=== PATIENT | female | born 1925 | race African-American/Black ===

== ENCOUNTER 2017-02-14 12:39 | Inpatient (IN) ==
[2017-02-14] MEDS ORDERED: LABETALOL 100 MG/20 ML VIAL IV STA (12:52)
[2017-02-14] MEDS ORDERED: LABETALOL 20 MG/4 ML SYRINGE IV ONE (12:56)
[2017-02-14 13:28] LABS: Basophils # 0.1 10*3/uL (0.0-0.2); Basophils % 0.5 % (0.0-0.8); Eosinophils # 0.1 10*3/uL (0.0-0.87); Eosinophils % 1.3 % (0.00-10.9); Hematocrit 37.4 VOL% (35.7-47.0); Hemoglobin 12.1 GM/DL (12.0-16.0); Immature Granulocytes % 0.5 %; Immature Granulocytes Absolute 0.05 #; Lymphocytes % 20.7 % (21.3-54.2); Mean Corpuscular HGB Conc 32.4 GM/DL (32-36); Mean Corpuscular Hemoglobin 23 PG (27-34); Mean Corpuscular Volume 71.2 FL (87-102); Mean Platelet Volume 10.1 FL (9.6-12.0); Monocytes # 0.7 10*3/uL (0.11-0.8); Monocytes % 7.3 % (1.7-12.7); Neutrophils # 6.9 10*3/uL (1.4-7.4); Neutrophils % 69.7 % (38.7-73.9); Platelet Count 401 T/CUMM (130-400); Red Blood Count 5.25 MC/CUMM (3.8-5.5); White Blood Count 9.9 T/CUMM (4-12)
--- NOTE | 2017-02-14 13:29 | EKG Report ---
Stationary ECG Study [facility] ER Test Date: 02/14/2017 1:28:44 PM Pat Name: ANA TAY Department: Room: Gender: F It Auditor: : [id number] Requested by: Ger Cowan Order Number: [id number] Reading MD: EDWARD DUNAWAY Intervals [place] Rate: 86 P: 999 GA: 0 QRS: -22 QRSD: 107 T: 7 QT: 400 QTc: 443 Interpretive Statements ATRIAL FIBRILLATION LEFT AXIS DEVIATION MINIMAL VOLTAGE CRITERIA FOR LVH, CONSIDER NORMAL VARIANT Electronically Signed On 02-14-17 20:45:23 CDT by EDWARD DUNAWAY [email or web address]
[2017-02-14 13:37] LABS: INR 1.1; Partial Thromboplastin Time 27.7 SECS (0-40)
--- NOTE | 2017-02-14 13:42 | Emergency Department Note ---
Santos Brown Brittany, am scribing for, and in the presence of, Jose Almonte MD 12:55. Gage Brown Doug C, MD, personally performed the services described in this documentation, ascribed by Gisela Graham in my presence, and it is both accurate and complete [id number] . Arrival - Arrival Chief Complaint: Weakness Stated Complaint: weakness Mode of Arrival: Stretcher Limitations: No Limitations Source: Patient, Family, RN Notes Reviewed Time Seen by Provider: 02/14/17 12:51 - History of Present Illness HPI Narrative: Patient 89-year-old black female states she got up this morning to go the restroom and fell. Patient was taken emergency room [place] where she was witnessed to deteriorate around 11:00 this morning. Patient is able to speak and her speech is intelligible but she does have episodes of echolalia. She denies any headaches. She is unable to tell me the day of the week. She denies any previous history of stroke but does have hypertension. There is no history of any hemorrhage. She does not think she injured her head and her fall. She had a CT brain [place] which showed no acute hemorrhage. Onset (ago): hour(s) Consistency: constant Allergies/Adverse Reactions: Allergies Allergy/AdvReac Type Severity Reaction Status Date / Time TEE Inhibitors Allergy ANAPHYLAXIS Verified 02/14/17 12:55 benazepril Allergy ANAPHYLAXIS Verified 02/14/17 12:55 Home Medications: Home Medications Medication Instructions Recorded Confirmed Type Aspirin [Ecotrin] 12.5 PO DAILY 01/24/17 History HYDROcodone/ACETAMIN 5-325 [[place] 1 tablet PO Q6H PRN #10 tablet 01/24/17 Rx 5-325] Review of System - Review of System 12 point system: reviewed and no additional remarkable complaints except as stated - Review of System Constitutional: Absent: chills, fever Eyes: Absent: vision change Head/Ears/Nose/Throat: Absent: nasal drainage, sore throat Respiratory: Absent: respiratory distress Cardiovascular: Absent: chest pain Gastrointestinal: Absent: abdominal pain, nausea, vomiting, diarrhea, constipation, melena, hematochezia Genitourinary female: Absent: dysuria, frequency, urgency Musculoskeletal: Present: arm pain (R shoulder). Absent: back pain, leg pain, neck pain Skin: Absent: rash Neurological: Present: weakness (L sided). Absent: headache Psychiatric: Absent: anxiety, depression Hematological/Lymphatic: Absent: easy bleeding, easy bruising Medical,Surgical,& Family Hx - Medical History Cardio: History of: Hypertension, Cardiovascular Problems Rheumatology: History of;: Gout - Surgical History Surgical History: noncontributory - Family History Family History: noncontributory - Social History Smoking Status: Never smoker Exam Vital Signs: Vital Signs Temperature 97.4 F L 02/14/17 12:39 Pulse Rate 94 H 02/14/17 12:39 Respiratory Rate 16 02/14/17 12:39 Blood Pressure 223/122 02/14/17 12:39 O2 Sat by Pulse Oximetry 100 02/14/17 12:39 - General General appearance: alert, in no apparent distress, other (Echolalia) - Head Head exam: Present: atraumatic, normocephalic - Eye Eye exam: Present: PERRL, EOMI - ENT ENT exam: Present: normal exam, normal oropharynx - Neck Neck exam: Present: normal inspection, full ROM, trachea midline - Chest Chest inspection: Present: normal inspection, symmetric chest wall rise - Respiratory Respiratory exam: Present: normal lung sounds bilaterally. Absent: respiratory distress - Cardiovascular Cardiovascular exam: Present: regular rate, normal rhythm, normal heart sounds. Absent: murmur, rubs, gallop - Abdominal Exam Abdominal exam: Present: soft, normal bowel sounds. Absent: tenderness - Extremities Exam Extremities exam: Absent: normal inspection (Pt ignores the left side of her body. Patient has absent veterans' coordinator on the left and cannot lift left leg from stricture) - Back Exam Back exam: Present: normal inspection - Neurological Exam Neurological exam: Present: alert, oriented X3, motor sensory deficit (Pt ignores the left side of her body. Patient has absent veterans' coordinator on the left and cannot lift left leg from stricture). Absent: CN II-XII intact (Patient has left central facial weakness) - Psychiatric Psychiatric exam: Present: normal affect, normal mood - Skin Skin exam: Present: warm, dry Course Course Narrative: Patient's clinical presentation, radiographic and electrocardiographic findings were discussed with [facility] alatorre covering the hospitalist service. She will see the patient here in the emergency room and determine final disposition. Regretfully I do not think she is a thrombolytic candidate. She appears to be in atrial fibrillation. Results - Labs Lab Results: I have reviewed the patients labs (Reviewed laboratory studies from [facility]) - EKG EKG results: interpreted by [facility]NOR EKG shows: atrial fibrillation (Heart rate 86 bpm) - Diagnostic Findings Procedure: CT: report reviewed by me (No acute hemorrhage seen.) Disposition Clinical Impression: Acute CVA (cerebrovascular accident) Case discussed with: patient, patient's family Disposition: Still a Patient Condition: Guarded Time of Disposition: 13:41
[2017-02-14 14:06] LABS: Albumin 3.3 G/DL (3.4-5.0); Bilirubin,Total 0.5 MG/DL (0.2-1.0); Calcium 9.8 MG/DL (8.5-10.1); Osmolality,Calculated 288.3 MOS/KG (273-304); Potassium 3.4 MMOL/L (3.5-5.1); Total Protein 7.6 G/DL (6.4-8.3)
[2017-02-14] MEDS ORDERED: LABETALOL 20 MG/4 ML SYRINGE IV PRN (14:19)
--- NOTE | 2017-02-14 14:27 | Hospitalist History & Physical ---
Assessment and Plan (1) Acute CVA (cerebrovascular accident) Status: Acute Assessment and plan: Patient's last known well time was around 930 this morning. The patient is well outside of the time frame for TPA administration. The patient will be admitted to the critical care unit for close observation. We will consult neurology. We will allow a degree of permissive hypertension. We will obtain an echocardiogram, carotid Doppler studies, and schedule MRI in a.m. We will recheck labs in a.m. Current Visit: Yes (2) Acute kidney injury Status: Acute Assessment and plan: BUN and creatinine noted at 23/1.20. We will monitor renal function at this time. We will recheck labs in a.m. Current Visit: Yes (3) Hypokalemia Status: Acute Current Visit: Yes (4) Hypokalemia Status: Acute Assessment and plan: Potassium noted at 3.4. We will start the potassium replacement protocol, correct deficit, and recheck labs in a.m. Current Visit: Yes History of Present Illness Chief complaint: Weakness History of present illness: This is a very pleasant 89-year-old female that presented to the ED at [facility] this afternoon as a transfer from [facility] in [place], [place] for further evaluation of weakness. The patient has a medical history significant for hypertension, gouty arthritis, TEE inhibitor aggravated angioedema, and arthritis. No significant surgical history was reported at the time of presentation. The family who was present at bedside served as historians. They report that the patient got out of bed this morning , attempted to go to the restroom, and sustained a fall. The patient who normally lives alone, was able to crawl to the phone and contact her family. Her family came to her home and transported her to the emergency room at [facility] for further evaluation. The patient was assessed at the time of presentation at [facility]. The patient was assessed at the time of presentation. The patient was noted to be grossly hypertensive with a blood pressure reported at 206/101. The stroke protocol was initiated at that time. Labs were obtained which were significant for white blood cell count 10.91, hemoglobin 11.4, hematocrit 35.0, potassium 3.2, BUN 24, creatinine 1.07, and glucose 118. CT head without contrast reported no acute intracranial pathology , generalized atrophy and changes consistent with microvascular disease, and chronic right caudate nucleus lacunar infarct. The patient was subsequently transferred to [facility] for continuation of care. The patient was assessed at the time of ED presentation at [facility]. The patient was noted to be grossly hypertensive with a blood pressure reported at 223/122. The stroke protocol was initiated at the time of presentation. The patient's neurological status was noted to be less than favorable. The patient's speech was not easily understood and the patient was noted to be neglecting the left side of her body. Labs were obtained which were significant for platelet count 4 1, potassium 3.4, BUN 23, creatinine 1.20 , glucose 165, and albumin 3.3. CT of the head was repeated which was significant for scattered hypoattenuation throughout the deep white matter in sultana likely representing microangiopathic small vessel ischemic changes. Chest x-ray was significant for reticulonodular interstitial opacities within the lung bases which could be chronic in nature. Early acute inflammatory process not excluded. After brief discussion with both Dr. Almonte and Dr. Bee, the patient will be admitted to the hospitalist service for continuation of care. Due to the severity of the patient's presenting symptoms, the patient will be placed in the critical care setting for close observation. A neurology consultation has been requested to evaluate and assist during the clinical encounter. Home medications have been reviewed and reconciled. CODE STATUS discussed; patient is a FULL CODE. Home Medications Medication Instructions Recorded Confirmed Type Aspirin [Ecotrin] 12.5 PO DAILY 01/24/17 History HYDROcodone/ACETAMIN 5-325 [[place] 1 tablet PO Q6H PRN #10 tablet 01/24/17 Rx 5-325] Allergies Allergy/AdvReac Type Severity Reaction Status Date / Time TEE Inhibitors Allergy ANAPHYLAXIS Verified 02/14/17 12:55 benazepril Allergy ANAPHYLAXIS Verified 02/14/17 12:55 Medical,Surgical,& Family Hx - Medical History Cardio: History of: Hypertension, Cardiovascular Problems Rheumatology: History of;: Gout - Family History Family History: Reports;: Family Diabetes, Family Heart Disease, Family Stroke - Social History Smoking Status: Never smoker Frequency of Alcohol Use: None Type of Drug Use: None Marital Status: Single Lives With:: Alone 12 point system: reviewed and no additional remarkable complaints except as stated Exam - Constitutional Vitals: Period Temp Pulse Resp BP Sys/Delgado Pulse Ox Last 24 Hr 97.4 F-97.4 F 94-94 16-16 223-223/122-122 100 General appearance: normal weight, mild distress - Head Head exam: Present: normal inspection, normocephalic - Eye Eye exam: Present: EOMI, other. Absent: conjunctival injection Pupils: Present: ASCENCION, normal accommodation - ENT ENT exam: Present: normal exam, normal external ear exam, normal oropharynx - Neck Neck exam: Present: normal inspection. Absent: lymphadenopathy, meningismus, tenderness, thyromegaly - Respiratory Respiratory exam: Present: clear to auscultation bilaterally. Absent: rales, rhonchi, stridor, wheezes - Cardiovascular Cardiovascular exam: Present: irregular rhythm (Atrial fibrillation) - GI/Abdominal GI/Abdominal exam: Present: normal bowel sounds, soft - Extremities Exam Extremities exam: Present: normal inspection, normal capillary refill, full ROM. Absent: edema - Expanded Left Upper Extremity General: Present: normal inspection Shoulder exam: Present: normal inspection, full ROM Upper Arm exam: Present: normal inspection Elbow exam: Present: normal inspection Hand wrist exam: Present: normal inspection Neurosensory exam: Absent: 2-point discrimination (Left upper extremity flaccid ; 0/0 strength) Vascular: Present: normal capillary refill - Expanded Left Lower Hip exam: Present: normal inspection Upper Leg exam: Present: normal inspection Knee exam: Present: normal inspection Lower leg exam: Present: normal inspection Ankle exam: Present: normal inspection Foot/Toe exam: Present: normal inspection Neuro vascular tendon exam: Present: decreased fine/light touch, motor deficit Gait: Present: not tested/not observed (Left lower extremity weakness; 2/5 strength) - Back Exam Back exam: Present: normal inspection - Neurological Exam Neurological exam: Present: alert, oriented X3, motor sensory deficit (Left- sided sensorimotor deficit), other (Left-sided facial drooping; slurred speech; left-side neglect). Absent: CN II-XII intact - Psychiatric Psychiatric exam: Present: normal affect - Skin Skin exam: Present: normal color, warm, dry Results - Labs CBC & BMP: 02/14/17 13:18 02/14/17 13:18 Lab Results: I have reviewed the past 24 hour labs Quality Measures - Stroke Onset of Symptoms Date: 02/14/17 Onset of Symptoms Time: 11:00 Presenting Symptoms: Left hemiparesis Contraindication Not Initiating IV-tPA: Other medical (Outside of the suggested timeframe for administration)
--- NOTE | 2017-02-14 14:28 | CT Report ---
Exam: CT head without intravenous contrast Clinical History: 89 years Female hemiparesis Technique: Axial computed tomography images of the head/brain without intravenous contrast Comparison: Same date at 0923 hours Findings: Brain: Patchy hypoattenuation within the deep white matter and sultana, unchanged. Angeles-white matter distinction maintained. No mass effect. No intra or extra-axial hemorrhage. Ventricles: Unremarkable. No ventriculomegaly. Bones/joints: Calvarium is intact Soft tissues: Unremarkable Sinuses: No active paranasal sinus process Mastoid air cells: Unremarkable visualized. Impression: 1. Scattered hypoattenuation throughout the deep white matter and sultana, likely representing microangiopathic small vessel ischemic changes. If clinically concerned for acute infarction, noncontrast MRI is suggested to further characterize PROCEDURE INTERPRETED AT [facility] DEPARTMENT OF RADIOLOGY Final Report Signed by: Martín Angeles
--- NOTE | 2017-02-14 14:28 | XRay Report ---
Portable chest Exam date: 02/14/2017 12:52 PM Indication: Shortness of breath, cough chest pain Comparison: January 24, 2017 at 1505 hours Findings: Cardiomediastinal contours are stable with underlying cardiomegaly and plaquing along the arch. Low lung volumes with basilar reticular nodular densities. Note made of advanced right glenohumeral arthrosis with. No acute osseous abnormalities. Visualized upper abdomen demonstrates no acute pathology. Impression: Reticular nodular interstitial opacities within the lung bases, may be chronic in nature. Early acute inflammatory process not excluded PROCEDURE INTERPRETED AT [facility] DEPARTMENT OF RADIOLOGY Final Report Signed by: Martín Angeles
[2017-02-14 14:53] LABS: Risk Ratio 4.92; VLDL CHOLESTEROL 22.6 MG/DL
[2017-02-14 14:54] LABS: Troponin I Only 0.054 NG/ML (0.00-0.045)
[2017-02-14] MEDS: SODIUM CHLORIDE 0.9% 1,000 ML IV SCH (16:02)
[2017-02-14] MEDS: niCARdipine INJ 25 MG in SODIUM CHLORIDE 0.9% 240 ML IV SCH ×2 (16:40→22:05)
--- NOTE | 2017-02-14 17:26 | Ultrasound Report ---
Carotid Doppler February 14, 2017 Indication: Focal neurologic deficit, weakness Comparison images are not available Technique: Angeles scale sonogram of the bilateral carotid arteries was performed utilizing color Doppler in routine fashion. Static images were submitted for interpretation with image capture and archive. Findings: Complete occlusion at the origin the right internal carotid artery. Extensive plaquing along the bifurcation origin of the left internal carotid artery with no associated increased flow velocities. Impression: 1. Complete occlusion at the origin the right internal carotid artery 2. Moderate plaquing at the left bifurcation origin of the internal carotid artery. No high-grade stenosis by flow velocity Today studies were performed utilizing indirect NASCET criteria The ultrasound images were stored and captured PROCEDURE INTERPRETED AT [facility] DEPARTMENT OF RADIOLOGY Final Report Signed by: Martín Angeles
--- NOTE | 2017-02-14 21:30 | ECHO Report ---
Jyoti Murray Exam Date: 02/14/2017 14:39 Referring Physician: Technologist: Dhara Reyes Age: 89 Ht (in): 64 Wt (lb): 150 Gender: F Exam Location: [facility] Echo Indications: acute CVA, acute kidney injury, hypokalemia BP: 223 / 122 HR: 94 Rhythm: Atrial fibrillation Technical Quality: IMPRESSIONS 2-3+ left atrial enlargement 2+ concentric LVH Normal LV systolic function with ejection fraction estimated be 65% without segmental wall motion abnormality 1+ mitral regurgitation 1-2+ tricuspid regurgitation with RVSP 21 mmHg plus RAP Irregular rhythm noted suggestive of atrial fibrillation MEASUREMENTS (Male / Female) Normal Values 2D ECHO LV Diastolic Diameter PLAX 3.0 cm 4.2 - 5.9 / 3.9 - 5.3 cm LV Systolic Diameter PLAX 1.4 cm LV Fractional Shortening PLAX 52.8 % IVS Diastolic Thickness 1.3 cm 0.6 - 1.0 / 0.6 - 0.9 cm LVPW Diastolic Thickness 1.2 cm 0.6 - 1.0 / 0.6 - 0.9 cm RV Internal Dim ED PLAX 2.2 cm Aortic Root Diameter 2.4 cm LA Systolic Diameter LX 4.2 cm 3.0 - 4.0 / 2.7 - 3.8 cm DOPPLER TR Peak Velocity 229.0 cm/s TR Peak Gradient 21.0 mmHg FINDINGS Left Ventricle Normal left ventricular cavity size. Mild concentric left ventricular hypertrophy with moderate diastolic dysfunction. Left ventricular ejection fraction is estimated a Right Ventricle Normal right ventricular size. Right Atrium The right atrium is mildly enlarged. Left Atrium The left atrium is mild - moderately enlarged. Mitral Valve Mildly thickened mitral valve with mild mitral regurgitation. Aortic Valve Mild aortic valve sclerosis without stenosis or regurgitation. Tricuspid Valve Morphologically normal tricuspid valve. Trace to mild tricuspid valve regurgitation. Tricuspid regurgitation velocities suggest a PAP of 21.0 mmHg + RAP. Pulmonic Valve Pulmonic valve not well visualized. Pericardium No pericardial effusion. Aorta Normal size aortic root and proximal ascending aorta. Eleuterio Cade (Electronically Signed) Final Date: 14 February 2017 21:30
[2017-02-15] MEDS: niCARdipine INJ 25 MG in SODIUM CHLORIDE 0.9% 240 ML IV SCH ×3 (02:56→21:30)
[2017-02-15] MEDS: SODIUM CHLORIDE 0.9% 1,000 ML IV SCH (05:40)
[2017-02-15 07:10] LABS: Basophils # 0.1 10*3/uL (0.0-0.2); Basophils % 0.3 % (0.0-0.8); Eosinophils % 0.1 % (0.00-10.9); Hematocrit 35.5 VOL% (35.7-47.0); Immature Granulocytes % 0.3 %; Immature Granulocytes Absolute 0.05 #; Lymphocytes # 2.9 10*3/uL (1.4-4.0); Lymphocytes % 17.9 % (21.3-54.2); Mean Corpuscular HGB Conc 33.8 GM/DL (32-36); Mean Corpuscular Hemoglobin 24 PG (27-34); Mean Corpuscular Volume 70.3 FL (87-102); Monocytes # 1.5 10*3/uL (0.11-0.8); Monocytes % 9.1 % (1.7-12.7); Neutrophils # 11.7 10*3/uL (1.4-7.4); Neutrophils % 72.3 % (38.7-73.9); Platelet Count 424 T/CUMM (130-400); Red Blood Count 5.05 MC/CUMM (3.8-5.5); Red Cell Distribution Width 14.9 % (9.3-17.3); White Blood Count 16.2 T/CUMM (4-12)
--- NOTE | 2017-02-15 08:24 | Hospitalist Progress Note ---
Assessment and Plan (1) Atrial fibrillation Status: Acute Assessment and plan: Unclear whether this is chronic or new onset. Consider full anticoagulation after MRI. The patient was on aspirin prior to this admission Current Visit: Yes Qualifiers: Atrial fibrillation type: unspecified Qualified Code(s): I48.91 - Unspecified atrial fibrillation (2) Uncontrolled hypertension Status: Acute Assessment and plan: Currently on a Cardene drip. Resume Norvasc and metoprolol. Consider adding other agents. Currently allowing for permissive hypertension within the 24 hours of new stroke. Current Visit: Yes (3) Acute CVA (cerebrovascular accident) Status: Acute Assessment and plan: Patient with left sided symptoms on deficit. Carotid shows occlusion of the right ICA. Neurology consulted in case discussed this morning. MRI today. Further recommendations will depend on her response to therapy. She is currently receiving aspirin 3 mg rectally. I have added Lipitor for her low HDL. Will consider full anticoagulation due to atrial fibrillation Current Visit: Yes (4) Hyperglycemia Status: Acute Assessment and plan: Mildly elevated hemoglobin A1c of 6.7 and a glucose of 167 on admission. Will order Accu-Cheks and continue to monitor. Current Visit: Yes Hospitalist: Subjective Interval history: Patient seen and examined. No acute events overnight. Case discussed with nursing staff. Labs reviewed. The patient was admitted yesterday afternoon as a transfer from [place]. She appears to have suffered a new stroke. She has left sided flaccid paralysis and right gaze preference. Her speech has improved. She was very hypertensive on arrival and was started on a Cardene drip. Carotid ultrasound shows that she has a complete occlusion of the right internal carotid artery. Echocardiogram shows atrial fibrillation with a normal ejection fraction. It is unclear whether the patient has a history of atrial fibrillation or if this is new. She was previously on aspirin at home as well as Norvasc and metoprolol. Her HDL is low and I started her on Lipitor. She is awaiting swallow evaluation and is currently n.p.o. PT and OT evaluations have been ordered and are pending. An MRI has also been ordered. Case was discussed with neurology on rounds this morning. Exam - Constitutional Vitals: Period Temp Pulse Resp BP Sys/Delgado Pulse Ox Last 24 Hr 97.3 F-98.1 F 77-126 13-26 107-223/64-124 98-100 Exam: Constitutional System: No distress. No tremulousness. Head: Normocephalic, atraumatic. Ears, Nose and Throat System: No pain or tenderness. No epistaxis or discharge Eyes System: Pupils equal, round, and reactive. Right gaze preference Neck: Supple, without adenopathy, No jugular venous distention. No thyromegaly, neck mass, or prior surgery apparent. Respiratory System: Chest clear to auscultation. Cardiovascular System: Heart with irregular rate and rhythm. No murmur. GI System: Abdomen soft, nontender. Normo active bowel sounds present. Musculoskeletal System: limbs with no pedal edema. Full distal pulses. Normal capillary refill. Neurological System: Left hemiparesis, right gaze preference. Patient is awake and alert. She is able to answer questions. Psychiatric System: Conversation is rational - Expanded Left Upper Extremity Neurosensory exam: Absent: 2-point discrimination (Left upper extremity flaccid ; 0/0 strength) Results - Labs CBC & BMP: 02/15/17 07:05 02/14/17 13:18 Lab Results: I have reviewed the past 24 hour labs - Diagnostic Findings Procedure: CT: report reviewed by me, MRI: pending, Ultrasound: report reviewed by me Quality Measures - Stroke Onset of Symptoms Date: 02/14/17 Onset of Symptoms Time: 11:00 Presenting Symptoms: Left hemiparesis
[2017-02-15] MEDS ORDERED: DEXTROSE 50% 25 GM/50 ML SYRINGE IV PRN (08:26)
[2017-02-15] MEDS ORDERED: GLUCAGON 1 MG VIAL IM PRN (08:26)
--- NOTE | 2017-02-15 08:48 | Neurology Consult Note ---
History of Present Illness History of present illness: 89 years old right-handed -[place] lady with past medical history significant for hypertension, gouty arthritis, osteoarthritis, new onset of atrial fibrillation admitted to hospital with acute onset of left-sided weakness. Patient was out of window For TPA. She was taken to [facility] at first and then later transferred to [facility] for further medical management. At the present time patient is talking but has dense left hemiplegia. She was living with her granddaughter. She is unable to swallow. Her blood pressure was significantly high at the time of admission and she is on Cardene drip. She is on aspirin and Lovenox as well. Never had a stroke before. CT of the head revealed right MCA distribution acute infarct. Carotid ultrasound revealed complete right ICA occlusion. EKG revealed new onset of atrial fibrillation Home Medications Medication Instructions Recorded Confirmed Type Aspirin [Ecotrin] 81 mg PO QAM 01/24/17 02/14/17 History HYDROcodone/ACETAMIN 5-325 [[place] 1 tablet PO Q6H PRN #10 tablet 01/24/17 Rx 5-325] Allopurinol [Allopurinol] 300 mg PO QAM 02/14/17 02/14/17 History Cyproheptadine Tab [Periactin Tab] 4 mg PO BEDTIME 02/14/17 02/14/17 History Metoprolol Succinate 50 mg PO QAM 02/14/17 02/14/17 History amLODIPine [Norvasc] 2.5 mg PO DAILY 02/14/17 02/14/17 History hydroCHLOROthiazide 12.5 mg PO QAM 02/14/17 02/14/17 History [Hydrochlorothiazide] Allergies Allergy/AdvReac Type Severity Reaction Status Date / Time TEE Inhibitors Allergy ANAPHYLAXIS Verified 02/14/17 12:55 benazepril Allergy ANAPHYLAXIS Verified 02/14/17 12:55 12 point system: reviewed and no additional remarkable complaints except as stated Medical,Surgical,& Family Hx - Medical History Cardio: History of: Cardiac Dysrhythmia, CAD, Hypertension, Cardiovascular Problems No history of: Aneurysm, Cerebrovascular Disease, Congenital Heart Disease, CHF, [place], Pacemaker, PVD, Valvular Heart Disease Psychological: No history of: Anxiety Disorders, ADHD, Behavior Problems, Bipolar Disorder, Depression, Previous Suicide Attempt, Psychiatric/Substance Abuse Tx, Schizophrenia, Violent Behavior, Psychiatric Problems Neurology: No history of: Brain Aneurysm, Cerebral Hemorrhage, Cerebrovascular Accident , Cerebral Palsy, Dementia, Migraine, Multiple Sclerosis, Parkinson's Disease, Peripheral Neuropathy, Seizures, TIA, Vertigo, Neurologocal Cancer HEENT: No history of: Ear Problem, Eye Problem, Dental Problems, Glaucoma, Oral Cancer, HEENT Problems Endocrine: No history of: Adrenal Disease, Diabetes Mellitus (IDDM), Diabetes Mellitus ( NIDDM), Dyslipidemia, Thyroid Disorder, Endocrine Cancer, Endocrine Problems Rheumatology: History of;: Gout No history of;: Fibromyalgia, Myasthenia Gravis, Psoriasis, Rheumatoid Arthritis, Sjogrens, Systemic Lupus Erythematosus, Rheumatological Problems Respiratory: No history of: Asthma, Bronchitis, COPD, Intubation, Obstructive Sleep Apnea , Pulmonary Embolism, Pulmonary Hypertension, Pneumonia, Lung Cancer, Respiratory Problems Renal: No history of: Renal (Kidney) Cancer, Dialysis, Renal Failure, Renal Problems Genitourinary: No history of: Bladder Problem, Kidney Stones, Recurring Urinary Tract Infections, Genitourinary Cancer, Problems Gastrointestinal: No history of: Bowel Obstruction, Clostridium Difficile, Crohn's Disease, Diverticulitis/ Diverticulosis, Esophageal Varices, GERD, Gastrointestinal Bleed , Hemorrhoids, Hematochezia, Hepatitis, Liver Problems, Pancreatitis, Polyps, Ulcerative Colitis, Gastrointestinal Cancer, GI Problems Musculoskeletal: No history of: Amputation, Back/Neck Problems, Degenerative Disk Disease, Herniated Disk, Osteoporosis, Musculoskeletal Cancer, Musculoskeletal Problems Hematology: No history of: Anemia, Blood Transfusion Reaction, Bleeding Problems, Clotting Problems, Sickle Cell Disease, Hematologic Cancer, Blood Disorders Reproductive: No history of: Abnormal Pap Smear, Breast Cancer, Endometriosis, Ectopic , Ovarian Cysts, Complication, Sexually Transmitted Disorders , Reproductive Cancer, Reproductive Problems Other: No history of: Anesthesia Reactions, Anaphylaxis, Cancer, Eczema, HIV, Malignant Hyperthermia, MRSA, Vancomycin-Resistant Enterococci, Skin Problems, Miscellaneous Medical Problems - Surgical History Cardiac Surgeries: Patient Denies: Femoral-Popliteal Bypass Graft, Cardiac Catheterization, Cardiac Surgery, Carotid Endarterectomy, Internal Defibrillator, Vascular Access Devices Thoracic Surgeries: Patient denies;: Kidney (Renal Surgery), Lithotripsy, Nephrectomy, Organ Transplant, Lobectomy Neurologic Surgeries: Patient denies: Brain Aneurysm, Cerebral Hemorrhage, Neurologic Surgery HEENT Surgeries: Patient denies: Carotid Endarterectomy, Eye Surgery, Thyroid Surgery, Tonsilectomy & Adenoidectomy Abdominal Surgeries: Patient denies: Abdominal Surgery, Appendectomy, Cholecystectomy, Colonoscopy , Gastric Bypass Surgery, EGD, Hernia Repair, Splenectomy Reproductive Surgeries: Patient denies;: Breast Surgery, Section, Cystoscopy, Dilation and Curettage, Genitourinary Surgery, Gynecologic Surgery, Hysterectomy, Tubal Ligation Orthopedic Surgeries: Patient denies;: Implanted Devices, Orthopedic Surgery, Spinal Surgery, Total Hip Replacement, Total Knee Replacement - Family History Family History: Reports;: Family Diabetes, Family Heart Disease, Family Stroke Denies;: Family Anesthesia Reaction, Family Cancer, Family Hematology, Family Hypertension, Family Psychiatric Problems, Additional Family History - Social History Smoking Status: Never smoker Frequency of Alcohol Use: None Type of Drug Use: None Exam - Constitutional Vitals: Period Temp Pulse Resp BP Sys/Delgado Pulse Ox Last 24 Hr 97.3 F-98.1 F 77-126 13-26 107-223/64-124 98-100 Exam: GENERAL: Patient is in no acute distress. NECK: Neck is supple. There is no JVD. No carotid bruits present. No thyroid masses. CVS: First and second heart sounds are normal. There is no S3 present. Regular rate and rhythm. RESPIRATORY: Lungs are clear to auscultation without any rales or rhonchi. ABDOMEN: Soft and non-tender. Bowel sounds are present. There is no hepatosplenomegaly. EXT: There is no palpable edema. Peripheral pulses are present. Skin: No rashes Central Nervous system: General: Alert, awake Speech: Fluent Comprehension: Fair Facial expressions: Normal Cranial Nerves: Pupils are equally reactive to light. She has left homonymous hemianopia. Motor: Bulk and Tone is normal. Strength in the right 3/5 Strength in the left 0-1/5 Sensory: Unreliable but she has left-sided extinction and neglect. Reflexes: 1+ and symmetrical Cerebellar function: Cannot be tested Toes: Left toe is upgoing Gait: Not tested Results - Labs CBC & BMP: 02/15/17 07:05 02/14/17 13:18 Assessment and Plan (1) Acute CVA (cerebrovascular accident) Status: Acute Assessment and plan: Continue aspirin per rectal. Add Lovenox 40 mg subcu daily Probably will need stronger anticoagulant and after PEG tube placement if required Agree with PT OT and ST Discuss CODE STATUS and family would like to make her DNR Cancel MRI and do CT scan of the head without contrast in the morning Thank you for the consult Current Visit: Yes
[2017-02-15] MEDS: ENOXAPARIN 40 MG/0.4 ML SYRINGE SUBCUT SCH (08:58)
[2017-02-15] MEDS ORDERED: ASPIRIN 300 MG SUPP RECTAL SCH (09:00)
[2017-02-15] MEDS ORDERED: ASPIRIN EC 81 MG TABLET PO SCH (09:00)
[2017-02-15] MEDS: ALLOPURINOL 300 MG TABLET PO SCH (09:21)
[2017-02-15] MEDS: METOPROLOL SUCCINATE XL 50 MG TABLET PO SCH (09:21)
[2017-02-15] MEDS: amLODIPine 2.5 MG TABLET PO SCH (09:21)
--- NOTE | 2017-02-15 10:34 | EKG Report ---
Stationary ECG Study [facility] Test Date: 02/15/2017 10:33:03 AM Pat Name: ANA TAY Department: Room: 123 Gender: F Weed Thinner: MALLY : 1925 Requested by: Josephine Rodriguez Order Number: [id number] Reading MD: AVANI SIM Intervals [place] Rate: 85 P: 999 MT: 0 QRS: 22 QRSD: 91 T: 105 QT: 380 QTc: 422 Interpretive Statements ATRIAL FLUTTER/TACHYCARDIA LOW QRS VOLTAGE IN EXTREMITY LEADS ABNORMAL QRS-T ANGLE Electronically Signed On 02-19-17 06:29:55 CDT by AVANI SIM [email or web address]
--- NOTE | 2017-02-15 11:31 | Cardiology Consult Note ---
Assessment and Plan - Time spent with patient Time spent with patient: Greater than 30 minutes (1) Atrial fibrillation Status: Acute Assessment and plan: This certainly appears to be acute. She has had palpitations the past which may represent episodes of paroxysmal atrial fibrillation previously. At present her rates are stable. She will need anticoagulation long-term especially her stroke. I am concerned about placing on anticoagulation at this close to her immediate stroke event. Also will need to look at right control. Current Visit: Yes Qualifiers: Atrial fibrillation type: unspecified Qualified Code(s): I48.91 - Unspecified atrial fibrillation (2) Acute CVA (cerebrovascular accident) Status: Acute Assessment and plan: This is being followed by neurology now. Current Visit: Yes (3) Hypokalemia Status: Acute Assessment and plan: Followed by the primary service. Current Visit: Yes (4) Uncontrolled hypertension Status: Acute Assessment and plan: This is being treated by the primary service and is on IV therapy as well as oral therapy. 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 Ms. Murray is a 89 year old female who is been followed by Dr. Feliz Ordonez previously having had coronary artery disease as well as dyslipidemia and hypertension. She has a history of palpitations based on his records. His prior ECGs revealed sinus rhythm with first-degree AV block and delayed anterior R-wave progression. She was last seen by him in November of this year. Prior evaluation with echocardiogram May 2015 revealed ejection fraction 65+ % with aortic valve sclerosing and otherwise unremarkable any cardiac perfusion study at the same time with normal cardiac perfusion and ejection fraction greater than 70%. No wall motion normality's were noted. Patient is admitted yesterday from an outside facility particularly [facility] [facility] room because of deterioration after having what appeared to be a stroke. She had no prior history of stroke. Outside CT did not reveal acute hemorrhage. Neurology's note the patient had right MCA stroke. 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 Clinically she has left-sided weakness. She has her head turned to the right. Her speech is today intelligible and she seems to understand our conversation. She has family with her today at bedside. She has no prior history of strokes. She does have a history of hypertension as well as dyslipidemia and prior coronary disease but the specifics of this is unknown. She also has a history of palpitations. She has been followed by Dr. Feliz Cade. An echocardiogram seen by him yesterday and interpreted revealed ejection fraction of 65% with moderate left atrial enlargement concentric left ventricular hypertrophy and mild mitral regurgitation and mild to moderate tricuspid valve regurgitation. Normal right-sided pressures. At that time was noted that she was probably in atrial fibrillation. Her ECG outside reveals sinus rhythm with first-degree AV block which she has had previously on ECG. Here she has had atrial fibrillation with variable ventricular response. Blood pressures not been adequately controlled. She is on low-dose Lovenox as well as aspirin. She is receiving nicardipine for blood pressure management this time. There is some question whether not this patient is able to swallow adequately. She will need adjustment of her medications especially her anticoagulants and other medications based on ability to swallow. Certainly we will need to hold full anticoagulation to make sure she does not transition into hemorrhagic stroke. Would consider Eliquis in her situation. CC: Josephine Rodriguez MD - Home Medications and Allergies Home Medications: Home Medications Medication Instructions Recorded Confirmed Type Aspirin [Ecotrin] 81 mg PO QAM 01/24/17 02/14/17 History HYDROcodone/ACETAMIN 5-325 [[place] 1 tablet PO Q6H PRN #10 tablet 01/24/17 Rx 5-325] Allopurinol [Allopurinol] 300 mg PO QAM 02/14/17 02/14/17 History Cyproheptadine Tab [Periactin Tab] 4 mg PO BEDTIME 02/14/17 02/14/17 History Metoprolol Succinate 50 mg PO QAM 02/14/17 02/14/17 History amLODIPine [Norvasc] 2.5 mg PO DAILY 02/14/17 02/14/17 History hydroCHLOROthiazide 12.5 mg PO QAM 02/14/17 02/14/17 History [Hydrochlorothiazide] Allergies/Adverse Reactions: Allergies Allergy/AdvReac Type Severity Reaction Status Date / Time TEE Inhibitors Allergy ANAPHYLAXIS Verified 02/14/17 12:55 benazepril Allergy ANAPHYLAXIS Verified 02/14/17 12:55 Review of systems: This is obtained to some degree from the patient as well as from family and is related to symptoms and history prior to her present acute event. Constitutional: Denies anorexia, chills, fatigue, fever, frequent falls, night sweats, weight gain, weight loss Eyes: Denies visual changes or loss of vision Ears: Denies decreased hearing, vertigo Nose, mouth and throat: Denies dysphagia, epistaxis, headaches, neck pain, tongue swelling, Neck: Denies thyroid disease. No stiffness. Cardiovascular: as per HPI Respiratory: Denies cough, dyspnea, hemoptysis, dyspnea on exertion, wheezing. Gastrointestinal: Denies abdominal pain, constipation, dyspepsia, dysphagia, hematemesis, hematochezia, melena, nausea, vomiting Genitourinary: Denies dysuria, hematuria, nocturia Musculoskeletal: Denies arthralgias, joint swelling, muscle weakness, myalgias Neurological: denies abnormal gait, abnormal speech, confusion, convulsions, frequent falls, headaches, memory loss, syncope prior to present acute event. Psychiatric: Denies anxiety, confusion, depression prior to present event. Endocrine: Unknown Hematologic/Lymphatic: Denies easy bleeding, easy bruising Dermatologic: Denies Rash, itching, shingles Medical,Surgical,& Family Hx - Medical History Cardio: History of: Cardiac Dysrhythmia (She has had palpitations before but nothing documented specifically), CAD, Hypertension, Cardiovascular Problems No history of: Aneurysm, Cerebrovascular Disease, Congenital Heart Disease, CHF, [place], Pacemaker, PVD, Valvular Heart Disease Psychological: No history of: Anxiety Disorders, ADHD, Behavior Problems, Bipolar Disorder, Depression, Previous Suicide Attempt, Psychiatric/Substance Abuse Tx, Schizophrenia, Violent Behavior, Psychiatric Problems Neurology: No history of: Brain Aneurysm, Cerebral Hemorrhage, Cerebrovascular Accident , Cerebral Palsy, Dementia, Migraine, Multiple Sclerosis, Parkinson's Disease, Peripheral Neuropathy, Seizures, TIA, Vertigo, Neurologocal Cancer HEENT: No history of: Ear Problem, Eye Problem, Dental Problems, Glaucoma, Oral Cancer, HEENT Problems Endocrine: No history of: Adrenal Disease, Diabetes Mellitus (IDDM), Diabetes Mellitus ( NIDDM), Dyslipidemia, Thyroid Disorder, Endocrine Cancer, Endocrine Problems Rheumatology: History of;: Gout No history of;: Fibromyalgia, Myasthenia Gravis, Psoriasis, Rheumatoid Arthritis, Sjogrens, Systemic Lupus Erythematosus, Rheumatological Problems Respiratory: No history of: Asthma, Bronchitis, COPD, Intubation, Obstructive Sleep Apnea , Pulmonary Embolism, Pulmonary Hypertension, Pneumonia, Lung Cancer, Respiratory Problems Renal: No history of: Renal (Kidney) Cancer, Dialysis, Renal Failure, Renal Problems Genitourinary: No history of: Bladder Problem, Kidney Stones, Recurring Urinary Tract Infections, Genitourinary Cancer, Problems Gastrointestinal: No history of: Bowel Obstruction, Clostridium Difficile, Crohn's Disease, Diverticulitis/ Diverticulosis, Esophageal Varices, GERD, Gastrointestinal Bleed , Hemorrhoids, Hematochezia, Hepatitis, Liver Problems, Pancreatitis, Polyps, Ulcerative Colitis, Gastrointestinal Cancer, GI Problems Musculoskeletal: No history of: Amputation, Back/Neck Problems, Degenerative Disk Disease, Herniated Disk, Osteoporosis, Musculoskeletal Cancer, Musculoskeletal Problems Hematology: No history of: Anemia, Blood Transfusion Reaction, Bleeding Problems, Clotting Problems, Sickle Cell Disease, Hematologic Cancer, Blood Disorders Reproductive: No history of: Abnormal Pap Smear, Breast Cancer, Endometriosis, Ectopic , Ovarian Cysts, Complication, Sexually Transmitted Disorders , Reproductive Cancer, Reproductive Problems Other: No history of: Anesthesia Reactions, Anaphylaxis, Cancer, Eczema, HIV, Malignant Hyperthermia, MRSA, Vancomycin-Resistant Enterococci, Skin Problems, Miscellaneous Medical Problems - Surgical History Cardiac Surgeries: Patient Denies: Femoral-Popliteal Bypass Graft, Cardiac Catheterization, Cardiac Surgery, Carotid Endarterectomy, Internal Defibrillator, Vascular Access Devices Thoracic Surgeries: Patient denies;: Kidney (Renal Surgery), Lithotripsy, Nephrectomy, Organ Transplant, Lobectomy Neurologic Surgeries: Patient denies: Brain Aneurysm, Cerebral Hemorrhage, Neurologic Surgery HEENT Surgeries: Patient denies: Carotid Endarterectomy, Eye Surgery, Thyroid Surgery, Tonsilectomy & Adenoidectomy Abdominal Surgeries: Patient denies: Abdominal Surgery, Appendectomy, Cholecystectomy, Colonoscopy , Gastric Bypass Surgery, EGD, Hernia Repair, Splenectomy Reproductive Surgeries: Patient denies;: Breast Surgery, Section, Cystoscopy, Dilation and Curettage, Genitourinary Surgery, Gynecologic Surgery, Hysterectomy, Tubal Ligation Orthopedic Surgeries: Patient denies;: Implanted Devices, Orthopedic Surgery, Spinal Surgery, Total Hip Replacement, Total Knee Replacement - Family History Family History: Reports;: Family Diabetes, Family Heart Disease, Family Stroke Denies;: Family Anesthesia Reaction, Family Cancer, Family Hematology, Family Hypertension, Family Psychiatric Problems, Additional Family History - Social History Smoking Status: Never smoker Frequency of Alcohol Use: None Type of Drug Use: None Physical Examination Vital Signs Temp Pulse Resp BP Pulse Ox 97.4 F L 94 H 16 223/122 100 02/14/17 12:39 02/14/17 12:39 02/14/17 12:39 02/14/17 12:39 02/14/17 12:39 Exam: General appearance: normal weight, no acute distress. She is lying with her head turned to the right. Head exam: atraumatic Eye exam: No acute trauma.. Ear exam: Anatomically normal. Normal auditory acuity to conversation. Oral exam: No significant oral lesions. Neck exam: normal inspection no JVD. No carotid bruit. Trachea is in midline. She is just persistently have her head turned to the right. Respiratory exam: clear to auscultation bilaterally and anteriorly with good air movement. No rales, rhonchi or wheezes. Cardiovascular exam: regular rate and rhythm, no murmur or gallop or rub. No precordial lift. No bruits over the major arteries. Chest wall/torso: Anatomically normal. No tenderness, deformity Peripheral Pulses: 2+ throughout. GI/Abdominal exam: normal bowel sounds, soft and nontender, no abdominal bruits or pulsatile masses. Musculoskeletal/Extremities exam: normal inspection without edema or cyanosis. No deformities or trauma. Neurological exam: Awake and responsive. She has no voluntary motion of the left arm on command and weak motion of the left leg and foot. Fairly good strength on the right leg and arm and hand. Psychiatric exam: Difficult at this time to really evaluate. Skin exam: normal color, warm. No rashes or other skin lesions. Result/EKG - Labs CBC & BMP: 02/15/17 07:05 02/14/17 13:18 Lab Results: I have reviewed the past 24 hour labs Labs: Laboratory Results - last 24 hr 02/14/17 02/14/17 02/14/17 13:18 13:18 13:18 WBC 9.9 RBC 5.25 Hgb 12.1 Hct 37.4 MCV 71.2 L MCH 23 L MCHC 32.4 RDW 15.0 Plt Count 401 H MPV 10.1 Neut % (Auto) 69.7 Lymph % (Auto) 20.7 L [place] % (Auto) 7.3 Eos % (Auto) 1.3 Baso % (Auto) 0.5 Neut # (Auto) 6.9 Lymph # (Auto) 2.0 [place] # (Auto) 0.7 Eos # (Auto) 0.1 Baso # (Auto) 0.1 Immature Gran % 0.5 Nucleated RBC % 0.0 Immature Gran # 0.05 Nucleated RBCs # 0.00 Immature Plt Fraction 0.0 INR 1.1 PT Patient/Control Mix 12.0 Circ Anticoag PTT 27.7 Sodium 141 Potassium 3.4 L Chloride 103 Carbon Dioxide 31 Anion Gap 10.4 BUN 23 H Creatinine 1.20 H GFR Calculation 46 BUN/Creatinine Ratio 19.00 Glucose 165 H Hemoglobin A1c Calculated Osmolality 288.3 Calcium 9.8 Total Bilirubin 0.50 AST 15 ALT 13 Alkaline Phosphatase 74 Troponin I Total Protein 7.6 Albumin 3.3 L Globulin 4.3 H Albumin/Globulin Ratio 0.7 L Triglycerides Cholesterol LDL Cholesterol VLDL Cholesterol HDL Cholesterol Heart Disease Risk Ratio 02/14/17 02/14/17 02/14/17 13:18 13:18 17:41 WBC RBC Hgb Hct MCV MCH MCHC RDW Plt Count MPV Neut % (Auto) Lymph % (Auto) [place] % (Auto) Eos % (Auto) Baso % (Auto) Neut # (Auto) Lymph # (Auto) [place] # (Auto) Eos # (Auto) Baso # (Auto) Immature Gran % Nucleated RBC % Immature Gran # Nucleated RBCs # Immature Plt Fraction INR PT Patient/Control Mix Circ Anticoag PTT Sodium Potassium Chloride Carbon Dioxide Anion Gap BUN Creatinine GFR Calculation BUN/Creatinine Ratio Glucose Hemoglobin A1c 6.7 H Calculated Osmolality Calcium Total Bilirubin AST ALT Alkaline Phosphatase Troponin I 0.054 H 0.077 H D Total Protein Albumin Globulin Albumin/Globulin Ratio Triglycerides 113 Cholesterol 187 LDL Cholesterol 129.0 VLDL Cholesterol 22.6 HDL Cholesterol 38 L Heart Disease Risk Ratio 4.92 02/14/17 02/15/17 02/15/17 20:37 07:05 07:05 WBC 16.2 H D RBC 5.05 Hgb 12.0 Hct 35.5 L MCV 70.3 L MCH 24 L MCHC 33.8 RDW 14.9 Plt Count 424 H MPV 10.0 Neut % (Auto) 72.3 Lymph % (Auto) 17.9 L [place] % (Auto) 9.1 Eos % (Auto) 0.1 Baso % (Auto) 0.3 Neut # (Auto) 11.7 H Lymph # (Auto) 2.9 [place] # (Auto) 1.5 H Eos # (Auto) 0.0 Baso # (Auto) 0.1 Immature Gran % 0.3 Nucleated RBC % 0.0 Immature Gran # 0.05 Nucleated RBCs # 0.00 Immature Plt Fraction 0.0 INR PT Patient/Control Mix Circ Anticoag PTT 27.3 Sodium Potassium Chloride Carbon Dioxide Anion Gap BUN Creatinine GFR Calculation BUN/Creatinine Ratio Glucose Hemoglobin A1c Calculated Osmolality Calcium Total Bilirubin AST ALT Alkaline Phosphatase Troponin I 0.077 H Total Protein Albumin Globulin Albumin/Globulin Ratio Triglycerides Cholesterol LDL Cholesterol VLDL Cholesterol HDL Cholesterol Heart Disease Risk Ratio - Impressions Impressions: ECG with atrial fibrillation with managed ventricular response. There is no acute changes. Quality Measures - Stroke Onset of Symptoms Date: 02/14/17 Onset of Symptoms Time: 11:00 Presenting Symptoms: Left hemiparesis
[2017-02-15] MEDS: INSULIN LISPRO 100 UNIT/ML SUBCUT SCH ×3 (12:20→23:46)
[2017-02-15] MEDS ORDERED: METOPROLOL TARTRATE 5 MG/5 ML VIAL IV ONE (13:26)
[2017-02-15] MEDS: METOPROLOL TARTRATE 5 MG/5 ML VIAL IV SCH ×3 (13:29→23:46)
--- NOTE | 2017-02-15 16:31 | Gastrointestinal Consult Note ---
Assessment and Plan (1) Dysphagia due to recent cerebral infarction Status: Acute Assessment and plan: Patient is experiencing some dysphagia at this time. She has difficulty sealing her mouth around a straw presented for speech pathology evaluation. She is not completely dysarthric, surprisingly it is difficult to gauge how soon her swallowing will resume, if at all. Unfortunately the patient is very adamant about avoiding a PEG tube and I have discussed this with the daughters who are wanting to wait until more family arrives tomorrow before discussing this further. For right now we will continue the aspirin and Lovenox regimen previously written. I have discussed the risks and benefits of the procedure with the daughter and granddaughter, Ashanti. Risk of the procedure include bleeding, infection, perforation, cardiac and pulmonary compromise as well as peritonitis from the tube itself. I can certainly provide this service at any point. There is no absolute baez to place this tomorrow, the patient may decide that she does not wish to have a feeding tube at all. Current Visit: Yes (2) Anemia Status: Acute Assessment and plan: Patient has mild anemia. She is not to my knowledge undergone either EGD or colonoscopy. We will perform EGD as a result of PEG tube placement ultimately, should she decide to undergo evaluation. I will be able to tell whether or not there appears to be a bleeding source in the upper GI tract at the time of this endoscopy. If the patient were having bright red blood per rectum we could also consider colonoscopy down the road, as clinically appropriate. For the present time will continue observation with occasional CBCs to follow the patient's hematocrit. Thus far this is drifted down to the 35.5% range from baseline of 42.5 back on 01/24/17. Current Visit: Yes History of Present Illness Chief complaint: Recent stroke of right m. cerebral artery, dysphagia, anticipated PEG need History of present illness: Ms. Murray is a 89 year old female who is a history of coronary artery disease, dyslipidemia and hypertension who had preserved left ventricular ejection fraction 65+% back in May 2015 who was admitted from an outside facility at [facility] with a stroke and left-sided hemiparesis. The patient has had a right-sided MCA distribution stroke and on ultrasound is demonstrated to have an occlusion of her right internal carotid at the origin. Patient's head is turned to the right and she has right eye deviation. Her speech is difficult to distinguish at times but is fairly intelligible to me although she is somewhat rambling. We discussed the placement of feeding tube with the patient' s daughter, Ms. Grant and granddaughter Ashanti as the patient is extremely obstinate that she does not want to have a feeding tube placed. They mention that more family is coming up from [place] and should be arriving tomorrow to further discuss it with the patient and she will be reassessed by speech pathology at that point as well. Given the amount of distribution involved with the stroke I have told him it is not likely that she will be able to swallow anytime soon but we could certainly discuss it after repeat evaluation tomorrow and with further family members present. The patient is trending towards becoming a DNR. We will continue the aspirin Lovenox for the present time. The patient has not had a previous stroke up to this point. Full anticoagulation is being held to make sure the patient does not transform into a hemorrhagic stroke but likely she will be started on Eliquis in the near future. In discussing with her family the patient does not typically have reflux issues, her appetite is quite good in fact she is asking for juice at the bedside now. She does not have diarrhea or constipation issues typically. The family does not know if she is ever had an EGD or colonoscopy. There are no records of either of these in our system. Home Medications Medication Instructions Recorded Confirmed Type Aspirin [Ecotrin] 81 mg PO QAM 01/24/17 02/14/17 History HYDROcodone/ACETAMIN 5-325 [Alpine 1 tablet PO Q6H PRN #10 tablet 01/24/17 Rx 5-325] Allopurinol [Allopurinol] 300 mg PO QAM 02/14/17 02/14/17 History Cyproheptadine Tab [Periactin Tab] 4 mg PO BEDTIME 02/14/17 02/14/17 History Metoprolol Succinate 50 mg PO QAM 02/14/17 02/14/17 History amLODIPine [Norvasc] 2.5 mg PO DAILY 02/14/17 02/14/17 History hydroCHLOROthiazide 12.5 mg PO QAM 02/14/17 02/14/17 History [Hydrochlorothiazide] Allergies Allergy/AdvReac Type Severity Reaction Status Date / Time TEE Inhibitors Allergy ANAPHYLAXIS Verified 02/14/17 12:55 benazepril Allergy ANAPHYLAXIS Verified 02/14/17 12:55 Medical,Surgical,& Family Hx - Medical History Cardio: History of: Cardiac Dysrhythmia (She has had palpitations before but nothing documented specifically), CAD, Hypertension, Cardiovascular Problems No history of: Aneurysm, Cerebrovascular Disease, Congenital Heart Disease, CHF, VT, Pacemaker, PVD, Valvular Heart Disease Psychological: No history of: Anxiety Disorders, ADHD, Behavior Problems, Bipolar Disorder, Depression, Previous Suicide Attempt, Psychiatric/Substance Abuse Tx, Schizophrenia, Violent Behavior, Psychiatric Problems Neurology: No history of: Brain Aneurysm, Cerebral Hemorrhage, Cerebrovascular Accident , Cerebral Palsy, Dementia, Migraine, Multiple Sclerosis, Parkinson's Disease, Peripheral Neuropathy, Seizures, TIA, Vertigo, Neurologocal Cancer HEENT: No history of: Ear Problem, Eye Problem, Dental Problems, Glaucoma, Oral Cancer, HEENT Problems Endocrine: No history of: Adrenal Disease, Diabetes Mellitus (IDDM), Diabetes Mellitus ( NIDDM), Dyslipidemia, Thyroid Disorder, Endocrine Cancer, Endocrine Problems Rheumatology: History of;: Gout No history of;: Fibromyalgia, Myasthenia Gravis, Psoriasis, Rheumatoid Arthritis, Sjogrens, Systemic Lupus Erythematosus, Rheumatological Problems Respiratory: No history of: Asthma, Bronchitis, COPD, Intubation, Obstructive Sleep Apnea , Pulmonary Embolism, Pulmonary Hypertension, Pneumonia, Lung Cancer, Respiratory Problems Renal: No history of: Renal (Kidney) Cancer, Dialysis, Renal Failure, Renal Problems Genitourinary: No history of: Bladder Problem, Kidney Stones, Recurring Urinary Tract Infections, Genitourinary Cancer, Problems Gastrointestinal: No history of: Bowel Obstruction, Clostridium Difficile, Crohn's Disease, Diverticulitis/ Diverticulosis, Esophageal Varices, GERD, Gastrointestinal Bleed , Hemorrhoids, Hematochezia, Hepatitis, Liver Problems, Pancreatitis, Polyps, Ulcerative Colitis, Gastrointestinal Cancer, GI Problems Musculoskeletal: No history of: Amputation, Back/Neck Problems, Degenerative Disk Disease, Herniated Disk, Osteoporosis, Musculoskeletal Cancer, Musculoskeletal Problems Hematology: No history of: Anemia, Blood Transfusion Reaction, Bleeding Problems, Clotting Problems, Sickle Cell Disease, Hematologic Cancer, Blood Disorders Reproductive: No history of: Abnormal Pap Smear, Breast Cancer, Endometriosis, Ectopic , Ovarian Cysts, Complication, Sexually Transmitted Disorders , Reproductive Cancer, Reproductive Problems Other: No history of: Anesthesia Reactions, Anaphylaxis, Cancer, Eczema, HIV, Malignant Hyperthermia, MRSA, Vancomycin-Resistant Enterococci, Skin Problems, Miscellaneous Medical Problems - Surgical History Cardiac Surgeries: Patient Denies: Femoral-Popliteal Bypass Graft, Cardiac Catheterization, Cardiac Surgery, Carotid Endarterectomy, Internal Defibrillator, Vascular Access Devices Thoracic Surgeries: Patient denies;: Kidney (Renal Surgery), Lithotripsy, Nephrectomy, Organ Transplant, Lobectomy Neurologic Surgeries: Patient denies: Brain Aneurysm, Cerebral Hemorrhage, Neurologic Surgery HEENT Surgeries: Patient denies: Carotid Endarterectomy, Eye Surgery, Thyroid Surgery, Tonsilectomy & Adenoidectomy Abdominal Surgeries: Patient denies: Abdominal Surgery, Appendectomy, Cholecystectomy, Colonoscopy , Gastric Bypass Surgery, EGD, Hernia Repair, Splenectomy Reproductive Surgeries: Patient denies;: Breast Surgery, Section, Cystoscopy, Dilation and Curettage, Genitourinary Surgery, Gynecologic Surgery, Hysterectomy, Tubal Ligation Orthopedic Surgeries: Patient denies;: Implanted Devices, Orthopedic Surgery, Spinal Surgery, Total Hip Replacement, Total Knee Replacement - Family History Family History: Reports;: Family Diabetes, Family Heart Disease, Family Stroke Denies;: Family Anesthesia Reaction, Family Cancer, Family Hematology, Family Hypertension, Family Psychiatric Problems, Additional Family History - Social History Smoking Status: Never smoker Frequency of Alcohol Use: None Type of Drug Use: None ROS unobtainable: due to dementia Exam - Constitutional Vitals: Period Temp Pulse Resp BP Sys/Delgado Pulse Ox Last 24 Hr 97.3 F-98.1 F 70-137 13-26 107-194/64-124 98-100 General appearance: mild distress - Head Head exam: Present: normocephalic - Eye Eye exam: Present: EOMI - ENT ENT exam: Present: normal exam - Respiratory Respiratory exam: Present: clear to auscultation bilaterally - Cardiovascular Cardiovascular exam: Present: regular rate and rhythm - GI/Abdominal GI/Abdominal exam: Present: normal bowel sounds, soft. Absent: distended, tenderness, rebound - Neurological Exam Neurological exam: Present: alert, altered (This patient has left-sided weakness she has paralysis of some of her facial muscles she is right eye gaze deviation and some confusion.) - Psychiatric Psychiatric exam: Present: normal mood, flat affect - Skin Skin exam: Present: warm Results - Labs CBC & BMP: 02/15/17 07:05 02/14/17 13:18 Quality Measures - Stroke Onset of Symptoms Date: 09/24/17 Onset of Symptoms Time: 11:00 Presenting Symptoms: Left hemiparesis
[2017-02-15 19:21] LABS: Apearance,Urine CLEAR (Clear); Bilirubin,Urine Negative (Negative); Blood, Urine Moderate mg/dL (Negative); Glucose,Urine (UA) Negative (Negative); Hyaline Casts,Urine 3 /LPF (0-3); Ketones,Urine Negative (Negative); Mucus,Urine Occasional /LPF (Occasional); Nitrite,Urine Negative (Negative); Protein,Urine 30 MG/DL; RBC,Urine 83 /HPF (0-4); Squamous Epithelial Cell,Urine Occasional /HPF (0-10); Urine Color Yellow (Yellow); Urine Specific Gravity 1.011 (1.001-1.035); Urine Urobilinogen < 2.0 EU/DL (0.2-1.0); WBC,Urine 19 /HPF (0-6)
[2017-02-15] MEDS: ATORVASTATIN 40 MG TABLET PO SCH (20:18)
[2017-02-16] MEDS: niCARdipine INJ 25 MG in SODIUM CHLORIDE 0.9% 240 ML IV SCH ×3 (03:45→20:15)
[2017-02-16 04:40] LABS: Basophils % 0.3 % (0.0-0.8); Eosinophils % 0.1 % (0.00-10.9); Hematocrit 35.6 VOL% (35.7-47.0); Immature Granulocytes % 0.4 %; Immature Granulocytes Absolute 0.06 #; Lymphocytes # 2.5 10*3/uL (1.4-4.0); Lymphocytes % 16.4 % (21.3-54.2); Mean Corpuscular HGB Conc 33.7 GM/DL (32-36); Mean Corpuscular Hemoglobin 23 PG (27-34); Mean Corpuscular Volume 69.5 FL (87-102); Mean Platelet Volume 10.1 FL (9.6-12.0); Monocytes # 1.4 10*3/uL (0.11-0.8); Neutrophils # 11.5 10*3/uL (1.4-7.4); Neutrophils % 73.8 % (38.7-73.9); Platelet Count 427 T/CUMM (130-400); Red Blood Count 5.12 MC/CUMM (3.8-5.5); Red Cell Distribution Width 14.6 % (9.3-17.3); White Blood Count 15.5 T/CUMM (4-12)
[2017-02-16 05:03] LABS: Calcium 8.9 MG/DL (8.5-10.1); Free T4 (Free Thyroxine) 1.16 NG/DL (0.76-1.46); Magnesium 1.5 MG/DL (1.8-2.4); Osmolality,Calculated 283.3 MOS/KG (273-304); Potassium 3.3 MMOL/L (3.5-5.1); Thyroid Stimulating Hormone 2.06 uIU/ml (0.358-3.74)
[2017-02-16] MEDS: INSULIN LISPRO 100 UNIT/ML SUBCUT SCH ×3 (05:29→17:22)
[2017-02-16] MEDS: METOPROLOL TARTRATE 5 MG/5 ML VIAL IV SCH ×2 (06:16→11:53)
--- NOTE | 2017-02-16 07:01 | CT Report ---
History: CVA Date: 02/16/2017 Study: CT head without contrast Comparison exam: February 14, [address] sections were obtained through the brain without contrast. There is now a large wedge-shaped area of decreased density compatible with ischemia in a right MCA distribution involving right frontal lobe, right temporal lobe, right insular cortex, and anteriormost aspect of the right parietal lobe. This measures at least 8 x 4 x 5 cm maximum dimensions. There is some mild effacement of the body of the right lateral ventricle. There is no midline shift or parenchymal hemorrhage. There is no new mass. There is no extra-axial hematoma. There is no acute abnormality of the calvarium. There is moderate distal carotid artery calcification. Impression: Large right MCA distribution area of ischemia measuring 8 cm is now apparent as discussed above. No parenchymal hemorrhage This CT exam was performed using one or more the following dose reduction techniques: Automated exposure control, adjustment of the MA and/or KV according to patient size, or use of iterative reconstruction technique. PROCEDURE INTERPRETED AT [facility] DEPARTMENT OF RADIOLOGY Final Report Signed by: Dr. Jimena Roman
--- NOTE | 2017-02-16 07:57 | Cardiology Progress Note ---
<Елена Pappas - Last Filed: 02/16/17 08:49> Assessment and Plan (1) Acute CVA (cerebrovascular accident) Status: Acute Assessment and plan: SEE PLAN OF CARE LISTED BELOW. Current Visit: Yes (2) Atrial fibrillation Status: Acute Assessment and plan: SEE PLAN OF CARE LISTED BELOW. Current Visit: Yes Qualifiers: Atrial fibrillation type: unspecified Qualified Code(s): I48.91 - Unspecified atrial fibrillation (3) Hypomagnesemia Status: Acute Assessment and plan: SEE PLAN OF CARE LISTED BELOW. Current Visit: Yes (4) Diabetes Status: Chronic Assessment and plan: SEE PLAN OF CARE LISTED BELOW. Current Visit: Yes (5) Dysphagia due to recent cerebral infarction Status: Acute Assessment and plan: SEE PLAN OF CARE LISTED BELOW. Current Visit: Yes (6) Hypokalemia Status: Acute Assessment and plan: SEE PLAN OF CARE LISTED BELOW. Current Visit: Yes (7) Uncontrolled hypertension Status: Chronic Assessment and plan: SEE PLAN OF CARE LISTED BELOW. Current Visit: Yes Cardiology - PN: Subj Interval history: CAN PUSHER: Dr. Feliz Cade. SUMMARY Ms. Murray is a 89 year old female who is been followed by Dr. Feliz Ordonez previously having had coronary artery disease as well as dyslipidemia and hypertension. She has a history of palpitations based on his records. His prior ECGs revealed sinus rhythm with first-degree AV block and delayed anterior R-wave progression. She was last seen by him in November of this year. Prior evaluation with echocardiogram May 2015 revealed ejection fraction 65+ % with aortic valve sclerosing and otherwise unremarkable any cardiac perfusion study at the same time with normal cardiac perfusion and ejection fraction greater than 70%. No wall motion normality's were noted. Patient is admitted yesterday from an outside facility particularly [facility] emergency room because of deterioration after having what appeared to be a stroke. EKG at our facility revealed atrial fibrillation with RVR. Echocardiogram this admission revealed preserved EF, greater than 65%. Head CT revealed acute stroke. Neurology following. Cardiology was consulted to further assist with A. fib. 2016 Patient was seen and examined in the CCU. She remains in atrial fibrillation. Rate controlled. She is awake and able to answer questions. Unable to move the left side. Blood pressure continues to be uncontrolled. Cardene drip has been titrated off. I have increased patient's blood pressure medications. Nurse reports that she feels that patient will be able to take her p.o. medications in applesauce today. If she is unable to take these she will contact me so we can adjust her IV blood pressure medicines. Chads vasc score of 7. Patient will need chronic anticoagulation. At this point, we will continue aspirin. Concerned about adding anticoagulation at this time as it is close to her immediate stroke event. She is also plan for possible PEG tube in the near future. I will further discuss with Dr. Jose and await his additional recommendations. IMPRESSION AND PLAN 1. ATRIAL FIBRILLATION - This appears to be acute. New diagnosis. She is now rate controlled with current medication regimen. Will transition patient's metoprolol back to p.o. when he does confirm that patient can swallow. Chads vasc score of 7. Patient will need chronic anticoagulation. At this point, we will continue aspirin. Concerned about adding anticoagulation at this time as it is close to her immediate stroke event. She is also plan for possible PEG tube in the near future. I will further discuss with Dr. Jose and await his additional recommendations. 2. ACUTE CVA - CT of the head revealed right MCA distribution acute infarct. Carotid ultrasound revealed complete right ICA occlusion. Dr. Mathias is following. At this point, we will continue aspirin and Lovenox 40 mg subcu daily per his recommendations. Patient will need stronger anticoagulant after PEG tube placement. 3. HYPOKALEMIA - Daily potassium added. Daily BMP. 4. HYPOMAGNESEMIA - Slow magnesium added. Daily magnesium. 5. UNCONTROLLED HYPERTENSION - Patient's Cardene has been titrated off. I have increased her Norvasc dose today. I have instructed nurse to notify me if she is unable to swallow her medications. 6. DIABETES - Blood sugars well controlled with sliding scale insulin. Check Accu-Cheks before meals and at bedtime. 7. UTI - UA reveals UTI. Urine culture no growth at 12 hours. Defer management to attending. Patient does have leukocytosis with left shift. 8. DYSPHAGIA - GI consulted for possible placement of PEG tube. Exam (Progress Note) - Constitutional Vitals: Period Temp Pulse Resp BP Sys/Delgado Pulse Ox Last 24 Hr 97 F-98.1 F 64-137 12-28 133-202/50-136 94-100 Exam: General: Appears well with no apparent distress. Pleasant and cooperative. Appears comfortable. HEENT: PERRL, normocephalic, atraumatic. Mucous membranes moist. No jaundice noted. Conjunctiva moist and clear, sclerae anicteric Neck: No JVD/HJR, no thyromegaly or lymphadenopathy noted. Cardiac: Irregular rhythm, rate control. No murmur rub or gallop. Lungs: Clear to auscultation without accessory muscle use to assist the respiratory pattern. Not requiring oxygen. Abdomen: Soft, bowel sounds normoactive. Nontender and nondistended. No abdominal bruit or thrill noted. No masses noted. Extremities: No clubbing, cyanosis noted. No edema noted. Upper extremity pulses 2+. Lower extremity pulses 2+. Capillary refill less than 3 seconds. Skin: No unusual lesions or rashes. No skin breakdown appreciated. Neuro: Awake and responsive. No voluntary motion of the left arm on command. Weak motion of the left leg and foot. Fairly good strength on the right leg arm and hand. No essential tremor is appreciated. Result/EKG - Labs CBC & BMP: 02/16/17 04:10 02/16/17 04:10 Lab Results: I have reviewed the past 24 hour labs Labs: Laboratory Results - last 24 hr 02/14/17 02/15/17 02/15/17 19:00 12:00 17:17 WBC RBC Hgb Hct MCV MCH MCHC RDW Plt Count MPV Neut % (Auto) Lymph % (Auto) Marin % (Auto) Eos % (Auto) Baso % (Auto) Neut # (Auto) Lymph # (Auto) Marin # (Auto) Eos # (Auto) Baso # (Auto) Immature Gran % Nucleated RBC % Immature Gran # Nucleated RBCs # Immature Plt Fraction Sodium Potassium Chloride Carbon Dioxide Anion Gap BUN Creatinine GFR Calculation BUN/Creatinine Ratio Glucose POC Glucose 121 H 143 H Calculated Osmolality Calcium Magnesium Free T4 TSH 3rd Generation Urine Color Yellow Urine Appearance Clear Urine pH 5.0 Ur Specific Penfield 1.011 Urine Protein 30 Urine Glucose (UA) Negative Urine Ketones Negative Urine Blood Moderate Urine Nitrate Negative Urine Bilirubin Negative Urine Urobilinogen < 2.0 H Urine Leukocytes Trace Urine RBC 83 Urine WBC 19 Ur Squamous Epith Cells Occasional Hyaline Casts 3 Urine Mucus Occasional Ur Culture Indicated? Results to follow 02/15/17 02/16/17 02/16/17 23:39 04:10 04:10 WBC 15.5 H RBC 5.12 Hgb 12.0 Hct 35.6 L MCV 69.5 L MCH 23 L MCHC 33.7 RDW 14.6 Plt Count 427 H MPV 10.1 Neut % (Auto) 73.8 Lymph % (Auto) 16.4 L Marin % (Auto) 9.0 Eos % (Auto) 0.1 Baso % (Auto) 0.3 Neut # (Auto) 11.5 H Lymph # (Auto) 2.5 Marin # (Auto) 1.4 H Eos # (Auto) 0.0 Baso # (Auto) 0.0 Immature Gran % 0.4 Nucleated RBC % 0.0 Immature Gran # 0.06 Nucleated RBCs # 0.00 Immature Plt Fraction 0.0 Sodium 141 Potassium 3.3 L Chloride 106 Carbon Dioxide 27 Anion Gap 11.3 BUN 17 Creatinine 1.00 GFR Calculation 60 BUN/Creatinine Ratio 17.00 Glucose 112 H POC Glucose 123 H Calculated Osmolality 283.3 Calcium 8.9 Magnesium 1.5 L Free T4 1.16 TSH 3rd Generation 2.060 Urine Color Urine Appearance Urine pH Ur Specific Penfield Urine Protein Urine Glucose (UA) Urine Ketones Urine Blood Urine Nitrate Urine Bilirubin Urine Urobilinogen Urine Leukocytes Urine RBC Urine WBC Ur Squamous Epith Cells Hyaline Casts Urine Mucus Ur Culture Indicated? Quality Measures - Stroke Onset of Symptoms Date: 02/14/17 Onset of Symptoms Time: 11:00 Presenting Symptoms: Left hemiparesis <Tigre Jose Buddy - Last Filed: 02/16/17 09:41> Assessment and Plan (1) Atrial fibrillation Status: Acute Current Visit: Yes Qualifiers: Atrial fibrillation type: unspecified Qualified Code(s): I48.91 - Unspecified atrial fibrillation (2) Acute CVA (cerebrovascular accident) Status: Acute Current Visit: Yes (3) Hypokalemia Status: Acute Current Visit: Yes (4) Uncontrolled hypertension Status: Chronic Current Visit: Yes Cardiology - PN: Subj Interval history: Patient was personally interviewed and examined and chart reviewed. Discussed his case with Елена Pappas NP. Clinically this patient is making good progress. Neurologically she seems to be slightly better. Still unable to move her left arm and hand all my commands and requests. She is moving her left leg as noted yesterday. She seems to be verbally more functional. Also she is swallowing and is taking her p.o. medications. She is been resistant to having a PEG tube and may not need this. She will continue to be monitored though for any issues with swallowing and possible aspiration. Her CT report from today was noted. She has had no recurrent episodes of atrial fibrillation. She has occasional PACs. We will need to start the patient on more aggressive anticoagulation if possible once is felt that she is stable from a CVA. Will await Dr. Negro clearance from this. Also look at starting her on antiarrhythmic and since she has normal ejection fraction no history of coronary artery disease flecainide may be a good medication for her. As noted she is a CHADS VASc score of 7 Her blood pressures are still running on the high side and she is off IV Cardene. Her amlodipine has been increased. I have also discussed this case with the patient's nurse. Exam (Progress Note) - Constitutional Vitals: Period Temp Pulse Resp BP Sys/Delgado Pulse Ox Last 24 Hr 97 F-98.1 F 64-137 12-28 139-202/50-136 94-100 Result/EKG - Labs CBC & BMP: 02/16/17 04:10 02/16/17 04:10 Labs: Laboratory Results - last 24 hr 02/14/17 02/15/17 02/15/17 19:00 12:00 17:17 WBC RBC Hgb Hct MCV MCH MCHC RDW Plt Count MPV Neut % (Auto) Lymph % (Auto) Marin % (Auto) Eos % (Auto) Baso % (Auto) Neut # (Auto) Lymph # (Auto) Marin # (Auto) Eos # (Auto) Baso # (Auto) Immature Gran % Nucleated RBC % Immature Gran # Nucleated RBCs # Immature Plt Fraction Sodium Potassium Chloride Carbon Dioxide Anion Gap BUN Creatinine GFR Calculation BUN/Creatinine Ratio Glucose POC Glucose 121 H 143 H Calculated Osmolality Calcium Magnesium Free T4 TSH 3rd Generation Urine Color Yellow Urine Appearance Clear Urine pH 5.0 Ur Specific [place] 1.011 Urine Protein 30 Urine Glucose (UA) Negative Urine Ketones Negative Urine Blood Moderate Urine Nitrate Negative Urine Bilirubin Negative Urine Urobilinogen < 2.0 H Urine Leukocytes Trace Urine RBC 83 Urine WBC 19 Ur Squamous Epith Cells Occasional Hyaline Casts 3 Urine Mucus Occasional Ur Culture Indicated? Results to follow 09/25/17 09/26/17 09/26/17 23:39 04:10 04:10 WBC 15.5 H RBC 5.12 Hgb 12.0 Hct 35.6 L MCV 69.5 L MCH 23 L MCHC 33.7 RDW 14.6 Plt Count 427 H MPV 10.1 Neut % (Auto) 73.8 Lymph % (Auto) 16.4 L Marin % (Auto) 9.0 Eos % (Auto) 0.1 Baso % (Auto) 0.3 Neut # (Auto) 11.5 H Lymph # (Auto) 2.5 Marin # (Auto) 1.4 H Eos # (Auto) 0.0 Baso # (Auto) 0.0 Immature Gran % 0.4 Nucleated RBC % 0.0 Immature Gran # 0.06 Nucleated RBCs # 0.00 Immature Plt Fraction 0.0 Sodium 141 Potassium 3.3 L Chloride 106 Carbon Dioxide 27 Anion Gap 11.3 BUN 17 Creatinine 1.00 GFR Calculation 60 BUN/Creatinine Ratio 17.00 Glucose 112 H POC Glucose 123 H Calculated Osmolality 283.3 Calcium 8.9 Magnesium 1.5 L Free T4 1.16 TSH 3rd Generation 2.060 Urine Color Urine Appearance Urine pH Ur Specific [place]field Urine Protein Urine Glucose (UA) Urine Ketones Urine Blood Urine Nitrate Urine Bilirubin Urine Urobilinogen Urine Leukocytes Urine RBC Urine WBC Ur Squamous Epith Cells Hyaline Casts Urine Mucus Ur Culture Indicated?
[2017-02-16] MEDS: ENOXAPARIN 40 MG/0.4 ML SYRINGE SUBCUT SCH (08:12)
[2017-02-16] MEDS: amLODIPine 2.5 MG TABLET PO SCH (08:30)
[2017-02-16] MEDS: ALLOPURINOL 300 MG TABLET PO SCH (08:30)
[2017-02-16] MEDS: amLODIPine 5 MG TABLET PO SCH (09:38)
[2017-02-16] MEDS: MAGNESIUM CHLORIDE 64 MG TABLET PO SCH ×2 (09:38→20:22)
[2017-02-16] MEDS: POTASSIUM CHLORIDE 20 MEQ TABLET PO SCH (09:39)
[2017-02-16] MEDS ORDERED: MAGNESIUM SULF RIDER 2 GM in PREMIX 1 EACH IV ONE (10:30)
[2017-02-16] MEDS: METOPROLOL SUCCINATE XL 50 MG TABLET PO SCH (11:02)
--- NOTE | 2017-02-16 11:09 | Hospitalist Progress Note ---
Assessment and Plan (1) Atrial fibrillation Status: Acute Assessment and plan: Unclear whether this is chronic or new onset. We will initiate full anticoagulation once cleared by neurology and cardiology. Current Visit: Yes Qualifiers: Atrial fibrillation type: unspecified Qualified Code(s): I48.91 - Unspecified atrial fibrillation (2) Uncontrolled hypertension Status: Chronic Assessment and plan: Currently on a Cardene drip. Resume Norvasc and metoprolol. Consider adding other agents. Currently allowing for permissive hypertension within the 24 hours of new stroke. Current Visit: Yes (3) Acute CVA (cerebrovascular accident) Status: Acute Assessment and plan: Patient with left sided symptoms on deficit. Carotid shows occlusion of the right ICA. Neurology consulted in case discussed this morning. Further recommendations will depend on her response to therapy. She is currently receiving aspirin 3 mg rectally. I have added Lipitor for her low HDL. Will consider full anticoagulation due to atrial fibrillation CT scan reveals a right MCA stroke suspected. Current Visit: Yes (4) Hyperglycemia Status: Acute Assessment and plan: Mildly elevated hemoglobin A1c of 6.7 and a glucose of 167 on admission. Will order Accu-Cheks and continue to monitor. Current Visit: Yes Hospitalist: Subjective Interval history: Patient seen and examined. No acute events overnight. Case discussed with nursing staff. Labs reviewed. CT scan reviewed showing right MCA distribution stroke. Patient is able to swallow a little bit better today. We will transition to oral medications. They are undecided regarding PEG tube placement. We all agree that full anticoagulation will need to be addressed prior to discharge. Blood pressure remains high. Will remain in the ICU for close observation. Exam - Constitutional Vitals: Period Temp Pulse Resp BP Sys/Delgado Pulse Ox Last 24 Hr 97 F-98.1 F 64-137 12-28 139-202/50-136 94-100 Exam: Constitutional System: No distress. No tremulousness. Speech has improved. Head: Normocephalic, atraumatic. Ears, Nose and Throat System: No pain or tenderness. No epistaxis or discharge. Eyes System: Pupils equal, round, and reactive. Right gaze preference Neck: Supple, without adenopathy, No jugular venous distention. Respiratory System: Chest clear to auscultation. Cardiovascular System: Heart with irregular rate and rhythm. No murmur. GI System: Abdomen soft, nontender. Normo active bowel sounds present. Musculoskeletal System: limbs with no pedal edema. Full distal pulses. Normal capillary refill. Neurological System: Left hemiparesis, right gaze preference. Patient is awake and alert. She is able to answer questions. Psychiatric System: Conversation is rational - Expanded Left Upper Extremity Neurosensory exam: Absent: 2-point discrimination (Left upper extremity flaccid ; 0/0 strength) Results - Labs CBC & BMP: 02/16/17 04:10 02/16/17 04:10 Lab Results: I have reviewed the past 24 hour labs - Diagnostic Findings Procedure: CT: report reviewed by me, image reviewed by me Quality Measures - Stroke Onset of Symptoms Date: 02/14/17 Onset of Symptoms Time: 11:00 Presenting Symptoms: Left hemiparesis
[2017-02-16] MEDS: METOPROLOL TARTRATE 50 MG TABLET PO SCH ×2 (11:55→20:22)
[2017-02-16] MEDS: POTASSIUM CHLORIDE RIDER 10 MEQ in PREMIX 1 EACH IV SCH ×4 (11:55→15:15)
[2017-02-16] MEDS ORDERED: TUBERCULIN SKIN TEST 0.1 ML SYRINGE INTRADERM ONE (14:35)
--- NOTE | 2017-02-16 14:57 | Gastrointestinal Progress Note ---
Assessment and Plan (1) Dysphagia due to recent cerebral infarction Status: Acute Assessment and plan: Patient is experiencing some dysphagia at this time. She has difficulty sealing her mouth around a straw presented for speech pathology evaluation. She is not completely dysarthric, surprisingly it is difficult to gauge how soon her swallowing will resume, if at all. Unfortunately the patient is very adamant about avoiding a PEG tube and I have discussed this with the daughters who are wanting to wait until more family arrives tomorrow before discussing this further. For right now we will continue the aspirin and Lovenox regimen previously written. I have discussed the risks and benefits of the procedure with the daughter and granddaughter, Ashanti. Risk of the procedure include bleeding, infection, perforation, cardiac and pulmonary compromise as well as peritonitis from the tube itself. I can certainly provide this service at any point. There is no absolute baez to place this tomorrow, the patient may decide that she does not wish to have a feeding tube at all. 02/16/17--This patient passed her swallowing study this morning and has been approved to have nectar thickened liquids. I am going to hold off on arranging for the upper endoscopy/PEG tube is neither she nor her family is mentally prepared to accept this alternative. She may certainly improve as far as her capacity for solids in the future as time passes from the initial inciting event. I will certainly be happy to put this PEG tube in in the future should circumstances warrant this and the family agrees. Given her improvement already , I will sign off at this time. Current Visit: Yes (2) Anemia Status: Acute Assessment and plan: Patient has mild anemia. She is not to my knowledge undergone either EGD or colonoscopy. We will perform EGD as a result of PEG tube placement ultimately, should she decide to undergo evaluation. I will be able to tell whether or not there appears to be a bleeding source in the upper GI tract at the time of this endoscopy. If the patient were having bright red blood per rectum we could also consider colonoscopy down the road, as clinically appropriate. For the present time will continue observation with occasional CBCs to follow the patient's hematocrit. Thus far this is drifted down to the 35.5% range from baseline of 42.5 back on 01/24/17. 02/16/17--The patient's hematocrit is stable at 35.6%. We will hold off on any further evaluation for the present time. We can consider upper and lower endoscopy should the patient developed severe anemia when taking Xarelto down the road. Would suggest periodic monitoring of the patient's hematocrit given this low level of anemia present. Current Visit: Yes Gastroenterology - PN: Subj Interval history: The patient has passed her swallowing study and has been approved for nectar thickened liquids. Discussing the potential of PEG tube placement with her she again reiterated her desire not to get this procedure done. Exam (Progress Note) - Constitutional Vitals: Period Temp Pulse Resp BP Sys/Delgado Pulse Ox Last 24 Hr 97 F-98.1 F 61-122 12-28 139-202/50-136 94-100 General appearance: mild distress - Head Head exam: Present: normocephalic - Eye Eye exam: Present: other (Right-sided gaze deviation) - Respiratory Respiratory exam: Present: clear to auscultation bilaterally. Absent: stridor, wheezes - Cardiovascular Cardiovascular exam: Present: regular rate and rhythm - GI/Abdominal GI/Abdominal exam: Present: normal bowel sounds, soft. Absent: distended, guarding, tenderness, rebound - Extremities Exam Extremities exam: Present: edema - Neurological Exam Neurological exam: Present: alert, altered (Left hemiparesis, confusion) - Psychiatric Psychiatric exam: Present: normal affect, normal mood - Skin Skin exam: Present: warm Results - Labs CBC & BMP: 02/16/17 04:10 02/16/17 04:10
--- NOTE | 2017-02-16 14:58 | Neurology Progress Note ---
Neurology - PN : Subjective Interval history: Patient seems to be doing better. No new problems reported. She passed swallowing test. She is taking thin liquid diet. She is densely weak in the left side. Repeat CAT scan revealed large right MCA distribution acute infarct. Exam (Progress Note) - Constitutional Vitals: Period Temp Pulse Resp BP Sys/Delgado Pulse Ox Last 24 Hr 97 F-98.1 F 61-122 12-28 139-202/50-136 94-100 Exam: GENERAL: Patient is in no acute distress. NECK: Neck is supple. There is no JVD. No carotid bruits present. No thyroid masses. CVS: First and second heart sounds are normal. There is no S3 present. Regular rate and rhythm. RESPIRATORY: Lungs are clear to auscultation without any rales or rhonchi. ABDOMEN: Soft and non-tender. Bowel sounds are present. There is no hepatosplenomegaly. EXT: There is no palpable edema. Peripheral pulses are present. Skin: No rashes Central Nervous system: General: Alert, awake Speech: Fluent Comprehension: Fair Facial expressions: Normal Cranial Nerves: Pupils are equally reactive to light. She has left homonymous hemianopia. Motor: Bulk and Tone is normal. Strength in the right 3/5 Strength in the left 0-1/5 Sensory: Unreliable but she has left-sided extinction and neglect. Reflexes: 1+ and symmetrical Cerebellar function: Cannot be tested Toes: Left toe is upgoing Gait: Not tested Results - Labs CBC & BMP: 02/16/17 04:10 02/16/17 04:10 Assessment and Plan (1) Acute CVA (cerebrovascular accident) Status: Acute Assessment and plan: Continue aspirin per rectal. Start Xarelto 20 mg p.o. daily Stop lovenox Given advanced age and significant disability, patient is not a good candidate for acute rehabilitation Consider swing bed placement Current Visit: Yes Quality Measures - Stroke Onset of Symptoms Date: 02/14/17 Onset of Symptoms Time: 11:00 Presenting Symptoms: Left hemiparesis
--- NOTE | 2017-02-16 16:12 | XRay Report ---
Exam: XR shoulder 2V RT Exam date: 02/16/2017 3:37 PM Indication: Right shoulder Pain, Comparison: No relevant comparisons Findings: Complete loss of joint space with remodeling of the articular surfaces, proliferative sclerotic changes and subchondral cyst formation. Prominent undersurface acromial osteophyte. No fracture or dislocation. No joint effusion. No radiographic soft tissue abnormalities. Impression: Advanced glenohumeral arthrosis PROCEDURE INTERPRETED AT [facility] DEPARTMENT OF RADIOLOGY Final Report Signed by: Xenia Angeles MD
[2017-02-16] MEDS: ATORVASTATIN 40 MG TABLET PO SCH (20:22)
[2017-02-17] MEDS: INSULIN LISPRO 100 UNIT/ML SUBCUT SCH ×4 (00:09→17:59)
[2017-02-17] MEDS: niCARdipine INJ 25 MG in SODIUM CHLORIDE 0.9% 240 ML IV SCH ×3 (01:05→15:36)
[2017-02-17 05:39] LABS: Basophils # 0.1 10*3/uL (0.0-0.2); Basophils % 0.3 % (0.0-0.8); Eosinophils % 0.1 % (0.00-10.9); Hematocrit 37.6 VOL% (35.7-47.0); Hemoglobin 12.5 GM/DL (12.0-16.0); Immature Granulocytes % 0.8 %; Immature Granulocytes Absolute 0.15 #; Lymphocytes # 2.8 10*3/uL (1.4-4.0); Lymphocytes % 15.3 % (21.3-54.2); Mean Corpuscular HGB Conc 33.2 GM/DL (32-36); Mean Corpuscular Hemoglobin 23 PG (27-34); Mean Platelet Volume 10.7 FL (9.6-12.0); Monocytes # 2.1 10*3/uL (0.11-0.8); Monocytes % 11.6 % (1.7-12.7); Neutrophils # 13.2 10*3/uL (1.4-7.4); Neutrophils % 71.9 % (38.7-73.9); Platelet Count 424 T/CUMM (130-400); Red Blood Count 5.37 MC/CUMM (3.8-5.5); White Blood Count 18.4 T/CUMM (4-12)
[2017-02-17 05:55] LABS: Calcium 9.6 MG/DL (8.5-10.1); Magnesium 2.1 MG/DL (1.8-2.4); Osmolality,Calculated 277.7 MOS/KG (273-304); Potassium 4.1 MMOL/L (3.5-5.1)
[2017-02-17] MEDS: RIVAROXABAN 20 MG TABLET PO SCH (08:17)
[2017-02-17] MEDS: ALLOPURINOL 300 MG TABLET PO SCH (08:17)
[2017-02-17] MEDS: METOPROLOL TARTRATE 50 MG TABLET PO SCH (08:17)
[2017-02-17] MEDS: POTASSIUM CHLORIDE 20 MEQ TABLET PO SCH (08:17)
[2017-02-17] MEDS: amLODIPine 5 MG TABLET PO SCH (08:17)
[2017-02-17] MEDS: MAGNESIUM CHLORIDE 64 MG TABLET PO SCH ×2 (08:17→20:23)
--- NOTE | 2017-02-17 08:30 | Cardiology Progress Note ---
<Елена Pappas - Last Filed: 02/17/17 08:27> Assessment and Plan (1) Acute CVA (cerebrovascular accident) Status: Acute Assessment and plan: SEE PLAN OF CARE LISTED BELOW. Current Visit: Yes (2) Atrial fibrillation Status: Acute Assessment and plan: SEE PLAN OF CARE LISTED BELOW. Current Visit: Yes Qualifiers: Atrial fibrillation type: unspecified Qualified Code(s): I48.91 - Unspecified atrial fibrillation (3) Hypomagnesemia Status: Acute Assessment and plan: SEE PLAN OF CARE LISTED BELOW. Current Visit: Yes (4) Diabetes Status: Chronic Assessment and plan: SEE PLAN OF CARE LISTED BELOW. Current Visit: Yes (5) Dysphagia due to recent cerebral infarction Status: Acute Assessment and plan: SEE PLAN OF CARE LISTED BELOW. Current Visit: Yes (6) Hypokalemia Status: Acute Assessment and plan: SEE PLAN OF CARE LISTED BELOW. Current Visit: Yes (7) Uncontrolled hypertension Status: Chronic Assessment and plan: SEE PLAN OF CARE LISTED BELOW. Current Visit: Yes Cardiology - PN: Subj Interval history: DIRECTOR EDUCATION: Dr. Feliz Cade. SUMMARY Ms. Murray is a 89 year old female who is been followed by Dr. Feliz Ordonez previously having had coronary artery disease as well as dyslipidemia and hypertension. She has a history of palpitations based on his records. His prior ECGs revealed sinus rhythm with first-degree AV block and delayed anterior R-wave progression. She was last seen by him in November of this year. Prior evaluation with echocardiogram May 2015 revealed ejection fraction 65+ % with aortic valve sclerosing and otherwise unremarkable any cardiac perfusion study at the same time with normal cardiac perfusion and ejection fraction greater than 70%. No wall motion normality's were noted. Patient is admitted yesterday from an outside facility particularly [facility] emergency room because of deterioration after having what appeared to be a stroke. EKG at our facility revealed atrial fibrillation with RVR. Echocardiogram this admission revealed preserved EF, greater than 65%. Head CT revealed acute stroke. Neurology following. Cardiology was consulted to further assist with A. fib. 2016 Patient was seen and examined in the CCU. Apparently, yesterday evening her blood pressure trended up and patient required reinitiation of Cardene drip. This morning upon rounds, her systolic blood pressure is 160s. She is currently receiving Cardene at 5 mg/h. Nursing staff at bedside reports that she passed swallowing study yesterday. She is able to swallow p.o. medications after they are crushed and placed in applesauce. I will increase her beta- blockade dose in order to assist nursing staff and titrating off Cardene drip today. Xarelto was reinitiated this morning to provide stroke prevention. She is tolerating this well. We will monitor daily CBC. Gastroenterology has signed off and does not plan to place PEG tube as she did pass her swallowing study yesterday. She remains in atrial fibrillation, rate controlled. She is awake and able to answer questions. Unable to move the left side. IMPRESSION AND PLAN 1. ATRIAL FIBRILLATION - This appears to be acute. New diagnosis. She continues to be rate controlled with current medication regimen. Patient is past swallowing study yesterday. I will increase her p.o. medications today in order to optimize rate control as well as blood pressure. Chads vasc score of 7. Xarelto initiated this morning. I will further discuss with Dr. Jose and await his additional recommendations. 2. ACUTE CVA - CT of the head revealed right MCA distribution acute infarct. Carotid ultrasound revealed complete right ICA occlusion. Dr. Mathias is following. Chads vasc score 7. Patient's Xarelto was reinitiated this morning as GI has decided not to perform PEG tube this hospitalization. Will monitor daily CBC. 3. HYPOKALEMIA - Resolved. Continue daily potassium. Daily BMP. 4. HYPOMAGNESEMIA - Resolved. Continue Slow-Mag. Daily magnesium. 5. UNCONTROLLED HYPERTENSION - Patient's guardian was reinitiated yesterday afternoon as her blood pressure continued to trend up. This morning systolic blood pressure is in the 160s. Cardene currently infusing at 5 mg an hour. I will increase patient's Lopressor dose in order to optimize blood pressure as well as assist in rate control. Could consider increasing Norvasc as well if blood pressure continues to be suboptimally controlled. I have instructed nursing staff to attempt to titrate Cardene off as patient's blood pressure tolerates. 6. DIABETES - Blood sugars well controlled with sliding scale insulin. Check Accu-Cheks before meals and at bedtime. 7. UTI - UA reveals UTI. Urine culture no growth at 12 hours. Defer management to attending. Patient does have leukocytosis with left shift. 8. DYSPHAGIA - Resolved. Past swallowing study yesterday. GI does not plan for PEG tube placement. Exam (Progress Note) - Constitutional Vitals: Period Temp Pulse Resp BP Sys/Delgado Pulse Ox Last 24 Hr 97.4 F-97.9 F 59-83 13-28 128-207/51-112 93-100 Exam: General: Appears well with no apparent distress. Pleasant and cooperative. Appears comfortable. HEENT: PERRL, normocephalic, atraumatic. Mucous membranes moist. No jaundice noted. Conjunctiva moist and clear, sclerae anicteric Neck: No JVD/HJR, no thyromegaly or lymphadenopathy noted. Cardiac: Irregular rhythm, rate control. No murmur rub or gallop. Lungs: Clear to auscultation without accessory muscle use to assist the respiratory pattern. Not requiring oxygen. Abdomen: Soft, bowel sounds normoactive. Nontender and nondistended. No abdominal bruit or thrill noted. No masses noted. Extremities: No clubbing, cyanosis noted. No edema noted. Upper extremity pulses 2+. Lower extremity pulses 2+. Capillary refill less than 3 seconds. Skin: No unusual lesions or rashes. No skin breakdown appreciated. Neuro: Awake and responsive. No voluntary motion of the left arm on command. Weak motion of the left leg and foot. Fairly good strength on the right leg arm and hand. No essential tremor is appreciated. Result/EKG - Labs CBC & BMP: 02/17/17 04:58 02/17/17 04:58 Lab Results: I have reviewed the past 24 hour labs Labs: Laboratory Results - last 24 hr 02/16/17 02/16/17 02/17/17 11:27 17:19 00:07 WBC RBC Hgb Hct MCV MCH MCHC RDW Plt Count MPV Neut % (Auto) Lymph % (Auto) Piatt % (Auto) Eos % (Auto) Baso % (Auto) Neut # (Auto) Lymph # (Auto) Piatt # (Auto) Eos # (Auto) Baso # (Auto) Immature Gran % Nucleated RBC % Immature Gran # Nucleated RBCs # Immature Plt Fraction Sodium Potassium Chloride Carbon Dioxide Anion Gap BUN Creatinine GFR Calculation BUN/Creatinine Ratio Glucose POC Glucose 129 H 122 H 130 H Calculated Osmolality Calcium Magnesium 02/17/17 02/17/17 02/17/17 04:58 04:58 06:08 WBC 18.4 H RBC 5.37 Hgb 12.5 Hct 37.6 MCV 70.0 L MCH 23 L MCHC 33.2 RDW 15.0 Plt Count 424 H MPV 10.7 Neut % (Auto) 71.9 Lymph % (Auto) 15.3 L Piatt % (Auto) 11.6 Eos % (Auto) 0.1 Baso % (Auto) 0.3 Neut # (Auto) 13.2 H Lymph # (Auto) 2.8 Piatt # (Auto) 2.1 H Eos # (Auto) 0.0 Baso # (Auto) 0.1 Immature Gran % 0.8 Nucleated RBC % 0.0 Immature Gran # 0.15 Nucleated RBCs # 0.00 Immature Plt Fraction 0.0 Sodium 138 Potassium 4.1 Chloride 106 Carbon Dioxide 24 Anion Gap 12.1 BUN 20 H Creatinine 0.90 GFR Calculation 67 BUN/Creatinine Ratio 22.00 H Glucose 103 POC Glucose 110 H Calculated Osmolality 277.7 Calcium 9.6 Magnesium 2.1 Quality Measures - Stroke Onset of Symptoms Date: 02/14/17 Onset of Symptoms Time: 11:00 Presenting Symptoms: Left hemiparesis Specialty Discharge - Follow Up or Referrals <Tigre Jose - Last Filed: 02/17/17 14:32> Assessment and Plan (1) Atrial fibrillation Status: Acute Current Visit: Yes Qualifiers: Atrial fibrillation type: unspecified Qualified Code(s): I48.91 - Unspecified atrial fibrillation (2) Acute CVA (cerebrovascular accident) Status: Acute Current Visit: Yes (3) Hypokalemia Status: Acute Current Visit: Yes (4) Uncontrolled hypertension Status: Chronic Current Visit: Yes Cardiology - PN: Subj Interval history: Patient personally interviewed and examined as well as chart reviewed. Discussed his case with Елена Pappas REGULATORY INTERN. I agree with the assessment and evaluation. In summation and addition the patient was available at the time of my visit. I discussed the patient's status and situation especially from cardiac standpoint. Patient is now been placed on Xarelto this morning he should be far enough out from her stroke did not have transition to hemorrhagic stroke. Her rhythm is indeed sinus with frequent PACs but has had no breakthrough atrial fibrillation that I find. Continue present medications. We will continue to monitor from cardiac standpoint. Exam (Progress Note) - Constitutional Vitals: Period Temp Pulse Resp BP Sys/Delgado Pulse Ox Last 24 Hr 96.6 F-98.1 F 54-83 10-28 128-207/51-96 93-100 Result/EKG - Labs CBC & BMP: 02/17/17 04:58 02/17/17 04:58 Labs: Laboratory Results - last 24 hr 02/16/17 02/17/17 02/17/17 17:19 00:07 04:58 WBC 18.4 H RBC 5.37 Hgb 12.5 Hct 37.6 MCV 70.0 L MCH 23 L MCHC 33.2 RDW 15.0 Plt Count 424 H MPV 10.7 Neut % (Auto) 71.9 Lymph % (Auto) 15.3 L Piatt % (Auto) 11.6 Eos % (Auto) 0.1 Baso % (Auto) 0.3 Neut # (Auto) 13.2 H Lymph # (Auto) 2.8 Piatt # (Auto) 2.1 H Eos # (Auto) 0.0 Baso # (Auto) 0.1 Immature Gran % 0.8 Nucleated RBC % 0.0 Immature Gran # 0.15 Nucleated RBCs # 0.00 Immature Plt Fraction 0.0 Sodium Potassium Chloride Carbon Dioxide Anion Gap BUN Creatinine GFR Calculation BUN/Creatinine Ratio Glucose POC Glucose 122 H 130 H Calculated Osmolality Calcium Magnesium 02/17/17 02/17/17 02/17/17 04:58 06:08 11:17 WBC RBC Hgb Hct MCV MCH MCHC RDW Plt Count MPV Neut % (Auto) Lymph % (Auto) Piatt % (Auto) Eos % (Auto) Baso % (Auto) Neut # (Auto) Lymph # (Auto) Piatt # (Auto) Eos # (Auto) Baso # (Auto) Immature Gran % Nucleated RBC % Immature Gran # Nucleated RBCs # Immature Plt Fraction Sodium 138 Potassium 4.1 Chloride 106 Carbon Dioxide 24 Anion Gap 12.1 BUN 20 H Creatinine 0.90 GFR Calculation 67 BUN/Creatinine Ratio 22.00 H Glucose 103 POC Glucose 110 H 137 H Calculated Osmolality 277.7 Calcium 9.6 Magnesium 2.1
--- NOTE | 2017-02-17 09:29 | Neurology Progress Note ---
Neurology - PN : Subjective Interval history: Patient seems to be doing okay. No new problems reported. Feeling better. Still densely weak in the left side. Exam (Progress Note) - Constitutional Vitals: Period Temp Pulse Resp BP Sys/Delgado Pulse Ox Last 24 Hr 97.4 F-97.9 F 59-83 13-28 128-207/51-96 93-100 Exam: GENERAL: Patient is in no acute distress. NECK: Neck is supple. There is no JVD. No carotid bruits present. No thyroid masses. CVS: First and second heart sounds are normal. There is no S3 present. Regular rate and rhythm. RESPIRATORY: Lungs are clear to auscultation without any rales or rhonchi. ABDOMEN: Soft and non-tender. Bowel sounds are present. There is no hepatosplenomegaly. EXT: There is no palpable edema. Peripheral pulses are present. Skin: No rashes Central Nervous system: General: Alert, awake Speech: Fluent Comprehension: Fair Facial expressions: Normal Cranial Nerves: Pupils are equally reactive to light. She has left homonymous hemianopia. Motor: Bulk and Tone is normal. Strength in the right 3/5 Strength in the left 0-1/5 Sensory: Unreliable but she has left-sided extinction and neglect. Reflexes: 1+ and symmetrical Cerebellar function: Cannot be tested Toes: Left toe is upgoing Gait: Not tested Results - Labs CBC & BMP: 02/17/17 04:58 02/17/17 04:58 Assessment and Plan (1) Acute CVA (cerebrovascular accident) Status: Acute Assessment and plan: Continue Xarelto Continue current treatment with PT OT and ST Current Visit: Yes Quality Measures - Stroke Onset of Symptoms Date: 02/14/17 Onset of Symptoms Time: 11:00 Presenting Symptoms: Left hemiparesis Specialty Discharge - Follow Up or Referrals
[2017-02-17] MEDS: METOPROLOL TARTRATE 100 MG TABLET PO SCH ×2 (09:40→20:23)
--- NOTE | 2017-02-17 09:44 | Physician Query Form ---
CLICK EDIT DOCUMENT TO SELECT QUERY ANSWER --> OK --> SIGN Paz Fields RN Clinical Hydrogenation Still Operator W) [phone] (f) [phone] [email or web address] PROVIDERS: Make your selection(s) from the choices in EACH section by typing an "x" and enter comments in the comment section. Please use your independent medical judgment in providing your response. This request does not imply that any particular answer is desired or expected. CLINCAL INDICATORS: (Providers should not edit this section) Pt. admitted with acute CVA. Based on documentation of "acute uncontrolled htn. Currently on a Cardene drip". Blood pressure of 223/122 on admission. Note: Hypertensive crises can present as hypertensive urgency or hypertensive emergency. Clarify which, if any of the following, is a more accurate diagnosis reflecting the type and acuity of the documented hypertension: TYPE: ( X) Hypertensive Emergency ( ) Hypertensive Urgency ( ) Uncontrolled chronic hypertension at baseline ( ) Other, please specify: ( ) Clinically unable to determine COMMENTS: Criteria Source - Up to Date (This topic last updated: Jul 24, 2015) HYPERTENSIVE URGENCY: Severe hypertension (usually a diastolic blood pressure above 120 mmHg) in asymptomatic patients is referred to as hypertensive urgency. There is no proven benefit from rapid reduction in blood pressure in asymptomatic patients who have no evidence of acute end-organ damage and are at little short-term risk. HYPERTENSIVE EMERGENCY: Severe hypertension (usually a diastolic blood pressure above 120 mmHg) with evidence of acute end-organ damage is defined as a hypertensive emergency. A hypertensive emergency can be life threatening and requires immediate treatment, usually with parenteral medications in a monitored setting. PLEASE ALSO DOCUMENT RESPONSE IN PROGRESS NOTES AND/OR DISCHARGE SUMMARY Use of terms such as suspected, likely, or probable (associated with a specific diagnosis that is being evaluated, monitored, or treated as if it exists) are acceptable and can be restated in the discharge summary if not ruled out. MTDD
--- NOTE | 2017-02-17 09:48 | Hospitalist Progress Note ---
Assessment and Plan (1) Pneumonia Status: Acute Assessment and plan: The patient is tachypneic this morning. Her white blood cell count is elevated. She has evidence of a right lower lobe infiltrate suggestive of aspiration. She is at high risk for aspiration due to her right MCA stroke. Although she has passed a swallow evaluation. I am going to start her on clindamycin 600 mg IV every 8 hours. Further recommendations will depend on her response to therapy. Current Visit: Yes Qualifiers: Pneumonia type: aspiration pneumonia Aspiration pneumonia type: unspecified Laterality: right Lung location: lower lobe of lung Qualified Code(s): J69.0 - Pneumonitis due to inhalation of food and vomit (2) Atrial fibrillation Status: Acute Assessment and plan: Unclear whether this is chronic or new onset. Xarelto has been started Metoprolol has been increased to 100 mg twice daily Current Visit: Yes Qualifiers: Atrial fibrillation type: unspecified Qualified Code(s): I48.91 - Unspecified atrial fibrillation (3) Acute CVA (cerebrovascular accident) Status: Acute Assessment and plan: Patient with left sided symptoms on deficit. Carotid shows occlusion of the right ICA. Neurology consulted in case discussed this morning. Further recommendations will depend on her response to therapy. . I have added Lipitor for her low HDL. On Xarelto. CT scan reveals a right MCA stroke Current Visit: Yes (4) Uncontrolled hypertension Status: Chronic Assessment and plan: Currently on a Cardene drip. Increase Norvasc and metoprolol. Consider adding other agents. Consider Cozaar versus hydralazine versus clonidine TTS patch Current Visit: Yes (5) Hyperglycemia Status: Acute Assessment and plan: Mildly elevated hemoglobin A1c of 6.7 and a glucose of 167 on admission. Will order Accu-Cheks and continue to monitor. Current Visit: Yes Hospitalist: Subjective Interval history: Patient seen and examined. No acute events overnight. Case discussed with nursing staff. Labs reviewed. Patient remains on Cardene drip for elevated blood pressure. Metoprolol has been increased to 100 mg twice daily and I am increasing her Norvasc to 10 mg daily. She is allergic to TEE inhibitors. Consider adding Cozaar or hydralazine if this does not achieve adequate blood pressure control. Clonidine patch would also be an option. She continues to have a dense paralysis of the left side secondary to her right MCA distribution stroke. Swing bed placement is being considered. White blood cell count mildly elevated. Chest x-ray pending. Questionable right lower lobe infiltrate suggestive of possible aspiration. Exam - Constitutional Vitals: Period Temp Pulse Resp BP Sys/Delgado Pulse Ox Last 24 Hr 97.4 F-97.9 F 59-83 13-28 128-207/51-96 93-100 Exam: Constitutional System: No distress. No tremulousness. Speech has improved. Head: Normocephalic, atraumatic. Ears, Nose and Throat System: No pain or tenderness. No epistaxis or discharge. Eyes System: Pupils equal, round, and reactive. Right gaze preference Neck: Supple, without adenopathy, No jugular venous distention. Respiratory System: Chest clear to auscultation. Decreased breath sounds at the bases Cardiovascular System: Heart with irregular rate and rhythm. No murmur. GI System: Abdomen soft, nontender. Normo active bowel sounds present. Musculoskeletal System: limbs with no pedal edema. Full distal pulses. Normal capillary refill. Neurological System: Left hemiparesis, right gaze preference. Patient is awake and alert. She is able to answer questions. Psychiatric System: Conversation is rational - Expanded Left Upper Extremity Neurosensory exam: Absent: 2-point discrimination (Left upper extremity flaccid ; 0/0 strength) Results - Labs CBC & BMP: 02/17/17 04:58 02/17/17 04:58 Lab Results: I have reviewed the past 24 hour labs - Diagnostic Findings Procedure: Chest x-ray: image reviewed by me Quality Measures - Stroke Onset of Symptoms Date: 02/14/17 Onset of Symptoms Time: 11:00 Presenting Symptoms: Left hemiparesis Specialty Discharge - Follow Up or Referrals
[2017-02-17] MEDS: CLINDAMYCIN INJ 600 MG in PREMIX 1 EACH IV SCH ×2 (11:25→18:05)
--- NOTE | 2017-02-17 13:59 | XRay Report ---
Portable chest Exam date: 02/17/2017 8:00 AM Indication: Shortness of breath, cough Comparison: February 14, 2017 at 1310 hours Findings: Cardiomediastinal contours are stable. Slight reticular nodular interstitial pattern within the lung bases, likely unchanged and again appears chronic. No acute osseous abnormalities. Advanced right glenohumeral arthrosis again noted. Visualized upper abdomen demonstrates no acute pathology. Impression: Chronic interstitial changes predominantly involving the lung bases. No acute cardiopulmonary findings PROCEDURE INTERPRETED AT [facility] DEPARTMENT OF RADIOLOGY Final Report Signed by: Xenia Agneles MD
[2017-02-17] MEDS: ATORVASTATIN 40 MG TABLET PO SCH (20:23)
[2017-02-18] MEDS: INSULIN LISPRO 100 UNIT/ML SUBCUT SCH ×5 (00:25→23:50)
[2017-02-18] MEDS: CLINDAMYCIN INJ 600 MG in PREMIX 1 EACH IV SCH ×3 (02:33→18:13)
[2017-02-18 06:25] LABS: Basophils % 0.2 % (0.0-0.8); Eosinophils # 0.1 10*3/uL (0.0-0.87); Eosinophils % 0.3 % (0.00-10.9); Hematocrit 34.8 VOL% (35.7-47.0); Hemoglobin 11.7 GM/DL (12.0-16.0); Immature Granulocytes Absolute 0.16 #; Lymphocytes # 2.9 10*3/uL (1.4-4.0); Lymphocytes % 17.9 % (21.3-54.2); Mean Corpuscular HGB Conc 33.6 GM/DL (32-36); Mean Corpuscular Hemoglobin 23 PG (27-34); Mean Corpuscular Volume 69.7 FL (87-102); Mean Platelet Volume 10.6 FL (9.6-12.0); Monocytes % 12.4 % (1.7-12.7); NRBC # 0.02 10*3/uL; Neutrophils % 68.2 % (38.7-73.9); Platelet Count 366 T/CUMM (130-400); Red Blood Count 4.99 MC/CUMM (3.8-5.5); Red Cell Distribution Width 15.1 % (9.3-17.3); White Blood Count 16.1 T/CUMM (4-12)
[2017-02-18 06:59] LABS: Calcium 9.6 MG/DL (8.5-10.1); Magnesium 2.2 MG/DL (1.8-2.4); Osmolality,Calculated 285.1 MOS/KG (273-304); Potassium 3.9 MMOL/L (3.5-5.1)
[2017-02-18] MEDS: POTASSIUM CHLORIDE 20 MEQ TABLET PO SCH (08:59)
[2017-02-18] MEDS: MAGNESIUM CHLORIDE 64 MG TABLET PO SCH ×2 (08:59→21:33)
[2017-02-18] MEDS: METOPROLOL TARTRATE 100 MG TABLET PO SCH ×2 (08:59→21:33)
[2017-02-18] MEDS: ALLOPURINOL 300 MG TABLET PO SCH (08:59)
[2017-02-18] MEDS: RIVAROXABAN 20 MG TABLET PO SCH (08:59)
[2017-02-18] MEDS: amLODIPine 10 MG TABLET PO SCH (09:02)
--- NOTE | 2017-02-18 09:09 | Neurology Progress Note ---
Neurology - PN : Subjective Interval history: Patient seems to be doing about the same. Chest x-ray report noted reveals possible aspiration pneumonia. Left side is densely weak. Exam (Progress Note) - Constitutional Vitals: Period Temp Pulse Resp BP Sys/Delgado Pulse Ox Last 24 Hr 96.6 F-98.6 F 50-75 14-24 141-183/54-99 95-100 Exam: GENERAL: Patient is in no acute distress. NECK: Neck is supple. There is no JVD. No carotid bruits present. No thyroid masses. CVS: First and second heart sounds are normal. There is no S3 present. Regular rate and rhythm. RESPIRATORY: Lungs are clear to auscultation without any rales or rhonchi. ABDOMEN: Soft and non-tender. Bowel sounds are present. There is no hepatosplenomegaly. EXT: There is no palpable edema. Peripheral pulses are present. Skin: No rashes Central Nervous system: General: Alert, awake Speech: Fluent Comprehension: Fair Facial expressions: Normal Cranial Nerves: Pupils are equally reactive to light. She has left homonymous hemianopia. Motor: Bulk and Tone is normal. Strength in the right 3/5 Strength in the left 0-1/5 Sensory: Unreliable but she has left-sided extinction and neglect. Reflexes: 1+ and symmetrical Cerebellar function: Cannot be tested Toes: Left toe is upgoing Gait: Not tested Results - Labs CBC & BMP: 02/18/17 05:13 02/18/17 05:13 Assessment and Plan (1) Acute CVA (cerebrovascular accident) Status: Acute Assessment and plan: Continue Xarelto Continue current treatment with PT OT and ST We will perform modified barium swallow study Current Visit: Yes Quality Measures - Stroke Onset of Symptoms Date: 02/14/17 Onset of Symptoms Time: 11:00 Presenting Symptoms: Left hemiparesis Specialty Discharge - Follow Up or Referrals
--- NOTE | 2017-02-18 10:34 | Hospitalist Progress Note ---
Assessment and Plan (1) Pneumonia Status: Acute Assessment and plan: The patient is tachypneic this morning. Her white blood cell count is elevated. She has evidence of a right lower lobe infiltrate suggestive of aspiration. She is at high risk for aspiration due to her right MCA stroke. Although she has passed a swallow evaluation. I am going to start her on clindamycin 600 mg IV every 8 hours. Further recommendations will depend on her response to therapy. Current Visit: Yes Qualifiers: Pneumonia type: aspiration pneumonia Aspiration pneumonia type: unspecified Laterality: right Lung location: lower lobe of lung Qualified Code(s): J69.0 - Pneumonitis due to inhalation of food and vomit (2) Atrial fibrillation Status: Acute Assessment and plan: Unclear whether this is chronic or new onset. Xarelto has been started Metoprolol has been increased to 100 mg twice daily Current Visit: Yes Qualifiers: Atrial fibrillation type: unspecified Qualified Code(s): I48.91 - Unspecified atrial fibrillation (3) Acute CVA (cerebrovascular accident) Status: Acute Assessment and plan: Patient with left sided symptoms on deficit. Carotid shows occlusion of the right ICA. Neurology consulted in case discussed this morning. Further recommendations will depend on her response to therapy. . I have added Lipitor for her low HDL. On Xarelto. CT scan reveals a right MCA stroke Current Visit: Yes (4) Uncontrolled hypertension Status: Chronic Assessment and plan: Currently on a Cardene drip. Increase Norvasc and metoprolol. Consider adding other agents. Consider Cozaar versus hydralazine versus clonidine TTS patch Current Visit: Yes (5) Hyperglycemia Status: Acute Assessment and plan: Mildly elevated hemoglobin A1c of 6.7 and a glucose of 167 on admission. Will order Accu-Cheks and continue to monitor. Current Visit: Yes Hospitalist: Subjective Interval history: Patient seen and examined. No acute events overnight. Case discussed with nursing staff. Labs reviewed. Blood pressure remains elevated. Cardene drip resumed this morning. Cardiology has added hydralazine and I agree with this. I have been unsuccessful in moving her out of the ICU due to her persistently high blood pressure requiring Cardene infusion. Will reassess her blood pressure this afternoon and if improved will transfer to the floor. Patient will need swing bed placement for rehab after right MCA stroke. Exam - Constitutional Vitals: Period Temp Pulse Resp BP Sys/Delgado Pulse Ox Last 24 Hr 96.6 F-98.6 F 50-72 14-24 141-188/55-99 95-100 Exam: Constitutional System: No distress. No tremulousness. Speech has improved. Head: Normocephalic, atraumatic. Ears, Nose and Throat System: No pain or tenderness. No epistaxis or discharge. Eyes System: Pupils equal, round, and reactive. Right gaze preference Neck: Supple, without adenopathy, No jugular venous distention. Respiratory System: Chest clear to auscultation. Decreased breath sounds at the bases Cardiovascular System: Heart with irregular rate and rhythm. No murmur. GI System: Abdomen soft, nontender. Normo active bowel sounds present. Musculoskeletal System: limbs with no pedal edema. Full distal pulses. Normal capillary refill. Neurological System: Left hemiparesis, right gaze preference. Patient is awake and alert. She is able to answer questions. Psychiatric System: Conversation is rational - Expanded Left Upper Extremity Neurosensory exam: Absent: 2-point discrimination (Left upper extremity flaccid ; 0/0 strength) Results - Labs CBC & BMP: 02/18/17 05:13 02/18/17 05:13 Lab Results: I have reviewed the past 24 hour labs Quality Measures - Stroke Onset of Symptoms Date: 02/14/17 Onset of Symptoms Time: 11:00 Presenting Symptoms: Left hemiparesis Specialty Discharge - Follow Up or Referrals
--- NOTE | 2017-02-18 10:39 | Cardiology Progress Note ---
<Елена Pappas - Last Filed: 02/18/17 10:19> Assessment and Plan (1) Acute CVA (cerebrovascular accident) Status: Acute Assessment and plan: SEE PLAN OF CARE LISTED BELOW. Current Visit: Yes (2) Atrial fibrillation Status: Acute Assessment and plan: SEE PLAN OF CARE LISTED BELOW. Current Visit: Yes Qualifiers: Atrial fibrillation type: unspecified Qualified Code(s): I48.91 - Unspecified atrial fibrillation (3) Hypomagnesemia Status: Acute Assessment and plan: SEE PLAN OF CARE LISTED BELOW. Current Visit: Yes (4) Diabetes Status: Chronic Assessment and plan: SEE PLAN OF CARE LISTED BELOW. Current Visit: Yes (5) Dysphagia due to recent cerebral infarction Status: Acute Assessment and plan: SEE PLAN OF CARE LISTED BELOW. Current Visit: Yes (6) Hypokalemia Status: Acute Assessment and plan: SEE PLAN OF CARE LISTED BELOW. Current Visit: Yes (7) Uncontrolled hypertension Status: Chronic Assessment and plan: SEE PLAN OF CARE LISTED BELOW. Current Visit: Yes Cardiology - PN: Subj Interval history: OSTEOPATHIC PHYSICIAN: Dr. Feliz Cade. SUMMARY Ms. Murray is a 89 year old female who is been followed by Dr. Feliz Ordonez previously having had coronary artery disease as well as dyslipidemia and hypertension. She has a history of palpitations based on his records. His prior ECGs revealed sinus rhythm with first-degree AV block and delayed anterior R-wave progression. She was last seen by him in November of this year. Prior evaluation with echocardiogram May 2015 revealed ejection fraction 65+ % with aortic valve sclerosing and otherwise unremarkable any cardiac perfusion study at the same time with normal cardiac perfusion and ejection fraction greater than 70%. No wall motion normality's were noted. Patient is admitted yesterday from an outside facility particularly [facility] emergency room because of deterioration after having what appeared to be a stroke. EKG at our facility revealed atrial fibrillation with RVR. Echocardiogram this admission revealed preserved EF, greater than 65%. Head CT revealed acute stroke. Neurology following. Cardiology was consulted to further assist with A. fib. 2016 Patient was seen and examined in the CCU. She continues to be in atrial fibrillation. Rate controlled. She is currently anticoagulated with Xarelto. She remains unable to move left upper extremity. Denies chest pain, heaviness or tightness. Without heart racing or palpitations. Blood pressure continues to be elevated. Systolic pressure in the 170s. Cardizem was titrated off yesterday. I will add hydralazine. Labs reviewed. I will further discuss with Dr. Jose and await his additional recommendations. REVIEW OF SYSTEMS: Denies chest pain, heaviness or tightness. Denies heart racing/palpitations Denies shortness of breath, orthopnea IMPRESSION AND PLAN 1. ATRIAL FIBRILLATION - This appears to be acute. New diagnosis. She continues to be rate controlled with current medication regimen. Continue metoprolol. Chads vasc score of 7. Continue Xarelto. I will further discuss with Dr. Jose and await his additional recommendations. 2. ACUTE CVA - CT of the head revealed right MCA distribution acute infarct. Carotid ultrasound revealed complete right ICA occlusion. Dr. Mathias is following. Chads vasc score 7. Patient's Xarelto was reinitiated this morning as GI has decided not to perform PEG tube this hospitalization. Will monitor daily CBC. 3. HYPOKALEMIA - Continue daily potassium. Daily BMP. 4. HYPOMAGNESEMIA - Resolved. Continue Slow-Mag. Daily magnesium. 5. UNCONTROLLED HYPERTENSION - Cardene now has been titrated off. This morning systolic blood pressure is in the 170s. I will add hydralazine. 6. DIABETES - Blood sugars well controlled with sliding scale insulin. Check Accu-Cheks before meals and at bedtime. 7. UTI - UA reveals UTI. Urine culture no growth at 12 hours. Defer management to attending. Patient does have leukocytosis with left shift. 8. DYSPHAGIA - Resolved. Passed swallowing study. GI does not plan for PEG tube placement. Exam (Progress Note) - Constitutional Vitals: Period Temp Pulse Resp BP Sys/Delgado Pulse Ox Last 24 Hr 96.6 F-98.6 F 50-72 14-24 141-183/55-99 95-100 Exam: General: Appears well with no apparent distress. Pleasant and cooperative. Appears comfortable. HEENT: PERRL, normocephalic, atraumatic. Mucous membranes moist. No jaundice noted. Conjunctiva moist and clear, sclerae anicteric Neck: No JVD/HJR, no thyromegaly or lymphadenopathy noted. Cardiac: Irregular rhythm, rate control. No murmur rub or gallop. Lungs: Clear to auscultation without accessory muscle use to assist the respiratory pattern. Not requiring oxygen. Abdomen: Soft, bowel sounds normoactive. Nontender and nondistended. No abdominal bruit or thrill noted. No masses noted. Extremities: No clubbing, cyanosis noted. No edema noted. Upper extremity pulses 2+. Lower extremity pulses 2+. Capillary refill less than 3 seconds. Skin: No unusual lesions or rashes. No skin breakdown appreciated. Neuro: Awake and responsive. No voluntary motion of the left arm on command. Weak motion of the left leg and foot. Fairly good strength on the right leg arm and hand. No essential tremor is appreciated. Result/EKG - Labs CBC & BMP: 02/18/17 05:13 02/18/17 05:13 Lab Results: I have reviewed the past 24 hour labs Labs: Laboratory Results - last 24 hr 02/17/17 02/17/17 02/17/17 11:17 17:14 23:41 WBC RBC Hgb Hct MCV MCH MCHC RDW Plt Count MPV Neut % (Auto) Lymph % (Auto) Beckham % (Auto) Eos % (Auto) Baso % (Auto) Neut # (Auto) Lymph # (Auto) Beckham # (Auto) Eos # (Auto) Baso # (Auto) Immature Gran % Nucleated RBC % Immature Gran # Nucleated RBCs # Immature Plt Fraction Sodium Potassium Chloride Carbon Dioxide Anion Gap BUN Creatinine GFR Calculation BUN/Creatinine Ratio Glucose POC Glucose 137 H 127 H 126 H Calculated Osmolality Calcium Magnesium 02/18/17 02/18/17 02/18/17 05:13 05:13 06:04 WBC 16.1 H RBC 4.99 Hgb 11.7 L Hct 34.8 L MCV 69.7 L MCH 23 L MCHC 33.6 RDW 15.1 Plt Count 366 MPV 10.6 Neut % (Auto) 68.2 Lymph % (Auto) 17.9 L Beckham % (Auto) 12.4 Eos % (Auto) 0.3 Baso % (Auto) 0.2 Neut # (Auto) 11.0 H Lymph # (Auto) 2.9 Beckham # (Auto) 2.0 H Eos # (Auto) 0.1 Baso # (Auto) 0.0 Immature Gran % 1.0 Nucleated RBC % 0.1 Immature Gran # 0.16 Nucleated RBCs # 0.02 Immature Plt Fraction 0.0 Sodium 142 Potassium 3.9 Chloride 108 H Carbon Dioxide 27 Anion Gap 10.9 BUN 22 H Creatinine 1.00 GFR Calculation 59 BUN/Creatinine Ratio 22.00 H Glucose 96 POC Glucose 119 H Calculated Osmolality 285.1 Calcium 9.6 Magnesium 2.2 02/18/17 08:32 WBC RBC Hgb Hct MCV MCH MCHC RDW Plt Count MPV Neut % (Auto) Lymph % (Auto) Beckham % (Auto) Eos % (Auto) Baso % (Auto) Neut # (Auto) Lymph # (Auto) Beckham # (Auto) Eos # (Auto) Baso # (Auto) Immature Gran % Nucleated RBC % Immature Gran # Nucleated RBCs # Immature Plt Fraction Sodium Potassium Chloride Carbon Dioxide Anion Gap BUN Creatinine GFR Calculation BUN/Creatinine Ratio Glucose POC Glucose 138 H Calculated Osmolality Calcium Magnesium Quality Measures - Stroke Onset of Symptoms Date: 02/14/17 Onset of Symptoms Time: 11:00 Presenting Symptoms: Left hemiparesis Specialty Discharge - Follow Up or Referrals <Tigre Jose - Last Filed: 02/18/17 18:48> Assessment and Plan (1) Atrial fibrillation Status: Acute Current Visit: Yes Qualifiers: Atrial fibrillation type: unspecified Qualified Code(s): I48.91 - Unspecified atrial fibrillation (2) Acute CVA (cerebrovascular accident) Status: Acute Current Visit: Yes (3) Hypokalemia Status: Acute Current Visit: Yes (4) Uncontrolled hypertension Status: Chronic Current Visit: Yes Cardiology - PN: Subj Interval history: Patient personally reviewed and examined chart reviewed. Discussed this patient 's case with Елена Pappas ASSET MANAGEMENT COORDINATOR. I agree with the assessment and evaluation and plan. The patient's had no recurrent atrial fibrillation since admission. She is on Xarelto. She still has some residual left arm immobility and dysfunction secondary to her CVA. She is not as talkative today. Her blood pressure still poorly controlled overall and I agree that we have started or added hydralazine to her regimen. We will maximize this as tolerated. Other adjustments in other options may be minoxidil. Hopefully the patient will be able to be moved out of the ICU soon. Also the other options discharge will be that a swing bed rehab. Exam (Progress Note) - Constitutional Vitals: Period Temp Pulse Resp BP Sys/Delgado Pulse Ox Last 24 Hr 97.1 F-98.6 F 51-73 16-27 153-188/55-99 94-100 Result/EKG - Labs CBC & BMP: 02/18/17 05:13 02/18/17 05:13 Labs: Laboratory Results - last 24 hr 02/17/17 02/18/17 02/18/17 23:41 05:13 05:13 WBC 16.1 H RBC 4.99 Hgb 11.7 L Hct 34.8 L MCV 69.7 L MCH 23 L MCHC 33.6 RDW 15.1 Plt Count 366 MPV 10.6 Neut % (Auto) 68.2 Lymph % (Auto) 17.9 L Beckham % (Auto) 12.4 Eos % (Auto) 0.3 Baso % (Auto) 0.2 Neut # (Auto) 11.0 H Lymph # (Auto) 2.9 Beckham # (Auto) 2.0 H Eos # (Auto) 0.1 Baso # (Auto) 0.0 Immature Gran % 1.0 Nucleated RBC % 0.1 Immature Gran # 0.16 Nucleated RBCs # 0.02 Immature Plt Fraction 0.0 Sodium 142 Potassium 3.9 Chloride 108 H Carbon Dioxide 27 Anion Gap 10.9 BUN 22 H Creatinine 1.00 GFR Calculation 59 BUN/Creatinine Ratio 22.00 H Glucose 96 POC Glucose 126 H Calculated Osmolality 285.1 Calcium 9.6 Magnesium 2.2 02/18/17 02/18/17 02/18/17 06:04 08:32 11:41 WBC RBC Hgb Hct MCV MCH MCHC RDW Plt Count MPV Neut % (Auto) Lymph % (Auto) Beckham % (Auto) Eos % (Auto) Baso % (Auto) Neut # (Auto) Lymph # (Auto) Beckham # (Auto) Eos # (Auto) Baso # (Auto) Immature Gran % Nucleated RBC % Immature Gran # Nucleated RBCs # Immature Plt Fraction Sodium Potassium Chloride Carbon Dioxide Anion Gap BUN Creatinine GFR Calculation BUN/Creatinine Ratio Glucose POC Glucose 119 H 138 H 152 H Calculated Osmolality Calcium Magnesium 02/18/17 02/18/17 12:40 17:28 WBC RBC Hgb Hct MCV MCH MCHC RDW Plt Count MPV Neut % (Auto) Lymph % (Auto) Beckham % (Auto) Eos % (Auto) Baso % (Auto) Neut # (Auto) Lymph # (Auto) Beckham # (Auto) Eos # (Auto) Baso # (Auto) Immature Gran % Nucleated RBC % Immature Gran # Nucleated RBCs # Immature Plt Fraction Sodium Potassium Chloride Carbon Dioxide Anion Gap BUN Creatinine GFR Calculation BUN/Creatinine Ratio Glucose POC Glucose 151 H 241 H Calculated Osmolality Calcium Magnesium
[2017-02-18] MEDS: niCARdipine INJ 25 MG in SODIUM CHLORIDE 0.9% 240 ML IV SCH (15:39)
[2017-02-18] MEDS: ATORVASTATIN 40 MG TABLET PO SCH (21:33)
[2017-02-19] MEDS: CLINDAMYCIN INJ 600 MG in PREMIX 1 EACH IV SCH ×3 (01:28→17:51)
[2017-02-19 05:00] LABS: Basophils % 0.3 % (0.0-0.8); Eosinophils # 0.1 10*3/uL (0.0-0.87); Eosinophils % 0.8 % (0.00-10.9); Hematocrit 35.9 VOL% (35.7-47.0); Hemoglobin 11.8 GM/DL (12.0-16.0); Immature Granulocytes Absolute 0.16 #; Lymphocytes # 2.8 10*3/uL (1.4-4.0); Lymphocytes % 17.8 % (21.3-54.2); Mean Corpuscular HGB Conc 32.9 GM/DL (32-36); Mean Corpuscular Hemoglobin 23 PG (27-34); Mean Platelet Volume 10.4 FL (9.6-12.0); Monocytes # 1.7 10*3/uL (0.11-0.8); Monocytes % 10.7 % (1.7-12.7); Neutrophils % 69.4 % (38.7-73.9); Platelet Count 376 T/CUMM (130-400); Red Blood Count 5.13 MC/CUMM (3.8-5.5); White Blood Count 15.9 T/CUMM (4-12)
[2017-02-19 05:33] LABS: Calcium 9.8 MG/DL (8.5-10.1); Magnesium 2.3 MG/DL (1.8-2.4); Potassium 4.1 MMOL/L (3.5-5.1)
[2017-02-19] MEDS: INSULIN LISPRO 100 UNIT/ML SUBCUT SCH ×3 (05:41→17:50)
[2017-02-19] MEDS: RIVAROXABAN 20 MG TABLET PO SCH (08:40)
[2017-02-19] MEDS: METOPROLOL TARTRATE 100 MG TABLET PO SCH ×2 (08:40→21:59)
[2017-02-19] MEDS: MAGNESIUM CHLORIDE 64 MG TABLET PO SCH ×2 (08:40→22:06)
[2017-02-19] MEDS: ALLOPURINOL 300 MG TABLET PO SCH (08:40)
[2017-02-19] MEDS: amLODIPine 10 MG TABLET PO SCH (08:40)
[2017-02-19] MEDS: POTASSIUM CHLORIDE 20 MEQ TABLET PO SCH (08:41)
--- NOTE | 2017-02-19 09:10 | Cardiology Progress Note ---
<Елена Pappas - Last Filed: 02/19/17 09:04> Assessment and Plan (1) Acute CVA (cerebrovascular accident) Status: Acute Assessment and plan: SEE PLAN OF CARE LISTED BELOW. Current Visit: Yes (2) Atrial fibrillation Status: Acute Assessment and plan: SEE PLAN OF CARE LISTED BELOW. Current Visit: Yes Qualifiers: Atrial fibrillation type: unspecified Qualified Code(s): I48.91 - Unspecified atrial fibrillation (3) Hypomagnesemia Status: Acute Assessment and plan: SEE PLAN OF CARE LISTED BELOW. Current Visit: Yes (4) Diabetes Status: Chronic Assessment and plan: SEE PLAN OF CARE LISTED BELOW. Current Visit: Yes (5) Dysphagia due to recent cerebral infarction Status: Acute Assessment and plan: SEE PLAN OF CARE LISTED BELOW. Current Visit: Yes (6) Hypokalemia Status: Acute Assessment and plan: SEE PLAN OF CARE LISTED BELOW. Current Visit: Yes (7) Uncontrolled hypertension Status: Chronic Assessment and plan: SEE PLAN OF CARE LISTED BELOW. Current Visit: Yes Cardiology - PN: Subj Interval history: PHOTOGRAPHIC INTELLIGENCE OFFICER: Dr. Feliz Cade. SUMMARY Ms. Murray is a 89 year old female who is been followed by Dr. Feliz Ordonez previously having had coronary artery disease as well as dyslipidemia and hypertension. She has a history of palpitations based on his records. His prior ECGs revealed sinus rhythm with first-degree AV block and delayed anterior R-wave progression. She was last seen by him in November of this year. Prior evaluation with echocardiogram May 2015 revealed ejection fraction 65+ % with aortic valve sclerosing and otherwise unremarkable any cardiac perfusion study at the same time with normal cardiac perfusion and ejection fraction greater than 70%. No wall motion normality's were noted. Patient is admitted yesterday from an outside facility particularly [facility] emergency room because of deterioration after having what appeared to be a stroke. EKG at our facility revealed atrial fibrillation with RVR. Echocardiogram this admission revealed preserved EF, greater than 65%. Head CT revealed acute stroke. Neurology following. Cardiology was consulted to further assist with A. fib. 2016 Patient was seen and examined in the CCU. Patient continues to not be very talkative. Lethargic. Now in normal sinus rhythm. Anticoagulated with Xarelto. She remains unable to move left upper extremity. Blood pressure continues to be elevated. Systolic pressure in the 160s. I will increase hydralazine dose. Labs reviewed. No further recommendations. I will further discuss with Dr. Jose and await his additional recommendations. REVIEW OF SYSTEMS: Denies chest pain, heaviness or tightness. Denies heart racing/palpitations Denies shortness of breath, orthopnea IMPRESSION AND PLAN 1. ATRIAL FIBRILLATION - This appears new diagnosis. Now in normal sinus rhythm. Continue metoprolol. Chads vasc score of 7. Continue Xarelto. I will further discuss with Dr. Jose and await his additional recommendations. 2. ACUTE CVA - CT of the head revealed right MCA distribution acute infarct. Carotid ultrasound revealed complete right ICA occlusion. Dr. Mathias is following. Chads vasc score 7. Continue Xarelto. Will monitor daily CBC. 3. HYPOKALEMIA - Continue daily potassium. Daily BMP. 4. HYPOMAGNESEMIA - Resolved. Continue Slow-Mag. Daily magnesium. 5. UNCONTROLLED HYPERTENSION - Cardene off. Blood pressure suboptimally controlled. I will increase hydralazine dose. Continue to monitor blood pressure and adjust accordingly. 6. DIABETES - Blood sugars well controlled with sliding scale insulin. Check Accu-Cheks before meals and at bedtime. 7. UTI - UA reveals UTI. Urine culture no growth at 12 hours. Defer management to attending. Patient does have leukocytosis with left shift. 8. DYSPHAGIA - Resolved. Passed swallowing study. GI does not plan for PEG tube placement. Exam (Progress Note) - Constitutional Vitals: Period Temp Pulse Resp BP Sys/Delgado Pulse Ox Last 24 Hr 97.1 F-98.3 F 48-73 12-27 147-191/55-82 94-100 Exam: General: Appears comfortable. No apparent distress. More lethargic and less talkative. HEENT: PERRL, normocephalic, atraumatic. Mucous membranes moist. No jaundice noted. Conjunctiva moist and clear, sclerae anicteric Neck: No JVD/HJR, no thyromegaly or lymphadenopathy noted. Cardiac: Regular rate and rhythm. No murmur rub or gallop. Lungs: Clear to auscultation without accessory muscle use to assist the respiratory pattern. Requiring oxygen via nasal cannula. Abdomen: Soft, bowel sounds normoactive. Nontender and nondistended. No abdominal bruit or thrill noted. No masses noted. Extremities: No clubbing, cyanosis noted. No edema. Upper extremity pulses 2+ . Lower extremity pulses 1+. Capillary refill less than 3 seconds. Skin: No unusual lesions or rashes. No skin breakdown appreciated. Neuro: Awake and responsive. No voluntary motion of the left arm on command. Weak motion of the left leg and foot. Fairly good strength on the right leg arm and hand. No essential tremor is appreciated. Result/EKG - Labs CBC & BMP: 02/19/17 04:35 02/19/17 04:35 Lab Results: I have reviewed the past 24 hour labs Labs: Laboratory Results - last 24 hr 02/18/17 02/18/17 02/18/17 11:41 12:40 17:28 WBC RBC Hgb Hct MCV MCH MCHC RDW Plt Count MPV Neut % (Auto) Lymph % (Auto) Vance % (Auto) Eos % (Auto) Baso % (Auto) Neut # (Auto) Lymph # (Auto) Vance # (Auto) Eos # (Auto) Baso # (Auto) Immature Gran % Nucleated RBC % Immature Gran # Nucleated RBCs # Immature Plt Fraction Sodium Potassium Chloride Carbon Dioxide Anion Gap BUN Creatinine GFR Calculation BUN/Creatinine Ratio Glucose POC Glucose 152 H 151 H 241 H Calculated Osmolality Calcium Magnesium 02/18/17 02/19/17 02/19/17 23:48 04:35 04:35 WBC 15.9 H RBC 5.13 Hgb 11.8 L Hct 35.9 MCV 70.0 L MCH 23 L MCHC 32.9 RDW 15.0 Plt Count 376 MPV 10.4 Neut % (Auto) 69.4 Lymph % (Auto) 17.8 L Vance % (Auto) 10.7 Eos % (Auto) 0.8 Baso % (Auto) 0.3 Neut # (Auto) 11.0 H Lymph # (Auto) 2.8 Vance # (Auto) 1.7 H Eos # (Auto) 0.1 Baso # (Auto) 0.0 Immature Gran % 1.0 Nucleated RBC % 0.0 Immature Gran # 0.16 Nucleated RBCs # 0.00 Immature Plt Fraction 0.0 Sodium 143 Potassium 4.1 Chloride 109 H Carbon Dioxide 27 Anion Gap 11.1 BUN 28 H Creatinine 1.00 GFR Calculation 60 BUN/Creatinine Ratio 28.00 H Glucose 106 POC Glucose 140 H Calculated Osmolality 290.0 Calcium 9.8 Magnesium 2.3 02/19/17 05:31 WBC RBC Hgb Hct MCV MCH MCHC RDW Plt Count MPV Neut % (Auto) Lymph % (Auto) Vance % (Auto) Eos % (Auto) Baso % (Auto) Neut # (Auto) Lymph # (Auto) Vance # (Auto) Eos # (Auto) Baso # (Auto) Immature Gran % Nucleated RBC % Immature Gran # Nucleated RBCs # Immature Plt Fraction Sodium Potassium Chloride Carbon Dioxide Anion Gap BUN Creatinine GFR Calculation BUN/Creatinine Ratio Glucose POC Glucose 111 H Calculated Osmolality Calcium Magnesium Quality Measures - Stroke Onset of Symptoms Date: 02/14/17 Onset of Symptoms Time: 11:00 Presenting Symptoms: Left hemiparesis Specialty Discharge - Follow Up or Referrals <Tigre Jose - Last Filed: 02/19/17 17:28> Assessment and Plan (1) Atrial fibrillation Status: Acute Current Visit: Yes Qualifiers: Atrial fibrillation type: unspecified Qualified Code(s): I48.91 - Unspecified atrial fibrillation (2) Acute CVA (cerebrovascular accident) Status: Acute Current Visit: Yes (3) Hypokalemia Status: Acute Current Visit: Yes (4) Uncontrolled hypertension Status: Chronic Current Visit: Yes Cardiology - PN: Subj Interval history: Patient personally reviewed and examined chart reviewed. Discussed this case with Елена Pappas SUPERVISOR [employer]. I agree with the assessment and evaluation. From a cardiac standpoint done very well. We will continue present medical therapy. Blood pressure been titrated by primary care service. Certainly we can see the patient as needed over the weekend. Please let us know if needed to be seen. Will check on the patient Wednesday. Exam (Progress Note) - Constitutional Vitals: Period Temp Pulse Resp BP Sys/Delgado Pulse Ox Last 24 Hr 97.1 F-98.0 F 48-71 12-24 147-191/55-86 96-100 Result/EKG - Labs CBC & BMP: 02/19/17 04:35 02/19/17 04:35 Labs: Laboratory Results - last 24 hr 02/18/17 02/18/17 02/19/17 17:28 23:48 04:35 WBC 15.9 H RBC 5.13 Hgb 11.8 L Hct 35.9 MCV 70.0 L MCH 23 L MCHC 32.9 RDW 15.0 Plt Count 376 MPV 10.4 Neut % (Auto) 69.4 Lymph % (Auto) 17.8 L Vance % (Auto) 10.7 Eos % (Auto) 0.8 Baso % (Auto) 0.3 Neut # (Auto) 11.0 H Lymph # (Auto) 2.8 Vance # (Auto) 1.7 H Eos # (Auto) 0.1 Baso # (Auto) 0.0 Immature Gran % 1.0 Nucleated RBC % 0.0 Immature Gran # 0.16 Nucleated RBCs # 0.00 Immature Plt Fraction 0.0 Sodium Potassium Chloride Carbon Dioxide Anion Gap BUN Creatinine GFR Calculation BUN/Creatinine Ratio Glucose POC Glucose 241 H 140 H Calculated Osmolality Calcium Magnesium 02/19/17 02/19/17 02/19/17 04:35 05:31 11:10 WBC RBC Hgb Hct MCV MCH MCHC RDW Plt Count MPV Neut % (Auto) Lymph % (Auto) Vance % (Auto) Eos % (Auto) Baso % (Auto) Neut # (Auto) Lymph # (Auto) Vance # (Auto) Eos # (Auto) Baso # (Auto) Immature Gran % Nucleated RBC % Immature Gran # Nucleated RBCs # Immature Plt Fraction Sodium 143 Potassium 4.1 Chloride 109 H Carbon Dioxide 27 Anion Gap 11.1 BUN 28 H Creatinine 1.00 GFR Calculation 60 BUN/Creatinine Ratio 28.00 H Glucose 106 POC Glucose 111 H 158 H Calculated Osmolality 290.0 Calcium 9.8 Magnesium 2.3
--- NOTE | 2017-02-19 09:50 | Hospitalist Progress Note ---
Assessment and Plan (1) Pneumonia Status: Acute Assessment and plan: Tachypnea has improved and her white blood cell count is coming down. She has evidence of a right lower lobe infiltrate suggestive of aspiration. She is at high risk for aspiration due to her right MCA stroke. Although she has passed a swallow evaluation. Continue clindamycin 600 mg IV every 8 hours. Further recommendations will depend on her response to therapy. Current Visit: Yes Qualifiers: Pneumonia type: aspiration pneumonia Aspiration pneumonia type: unspecified Laterality: right Lung location: lower lobe of lung Qualified Code(s): J69.0 - Pneumonitis due to inhalation of food and vomit (2) Atrial fibrillation Status: Acute Assessment and plan: Unclear whether this is chronic or new onset. Xarelto has been started Metoprolol has been increased to 100 mg twice daily. She has converted to sinus rhythm Current Visit: Yes Qualifiers: Atrial fibrillation type: unspecified Qualified Code(s): I48.91 - Unspecified atrial fibrillation (3) Acute CVA (cerebrovascular accident) Status: Acute Assessment and plan: Patient with left sided symptoms on deficit. Carotid shows occlusion of the right ICA. I have added Lipitor for her low HDL. On Xarelto. CT scan reveals a right MCA stroke Current Visit: Yes (4) Uncontrolled hypertension Status: Chronic Assessment and plan: Increase Norvasc and metoprolol. Hydralazine added,Consider Cozaar versus clonidine TTS patch if BP remians elevated. Current Visit: Yes (5) Hyperglycemia Status: Acute Assessment and plan: Mildly elevated hemoglobin A1c of 6.7 and a glucose of 167 on admission. Will order Accu-Cheks and continue to monitor. Current Visit: Yes Hospitalist: Subjective Interval history: Patient seen and examined. No acute events overnight. Case discussed with nursing staff. Labs reviewed. His house is admitted with an acute CVA of the right MCA distribution causing left-sided hemiparesis and right gaze preference with some speech and swallowing difficulties. She has new diagnosed atrial fibrillation and is anticoagulated with Xarelto. Her blood pressure has been difficult to manage and multiple medications have been added. Cardene has been weaned off. She is going to be transferred to the floor today. Discharge planning is in progress for swing bed placement. Exam - Constitutional Vitals: Period Temp Pulse Resp BP Sys/Delgado Pulse Ox Last 24 Hr 97.1 F-98.3 F 48-73 12-27 147-191/55-82 94-100 Exam: Constitutional System: No distress. No tremulousness. Speech has minimally improved. Head: Normocephalic, atraumatic. Ears, Nose and Throat System: No pain or tenderness. No epistaxis or discharge. Eyes System: Pupils equal, round, and reactive. Right gaze preference Neck: Supple, without adenopathy, No jugular venous distention. Respiratory System: Chest clear to auscultation. Decreased breath sounds at the bases Cardiovascular System: Heart with regular rate and rhythm. No murmur. GI System: Abdomen soft, nontender. Normo active bowel sounds present. Musculoskeletal System: limbs with no pedal edema. Full distal pulses. Normal capillary refill. Neurological System: Left hemiparesis, right gaze preference. Patient is awake and alert. She is able to answer questions. - Expanded Left Upper Extremity Neurosensory exam: Absent: 2-point discrimination (Left upper extremity flaccid ; 0/0 strength) Results - Labs CBC & BMP: 02/19/17 04:35 02/19/17 04:35 Lab Results: I have reviewed the past 24 hour labs Quality Measures - Stroke Onset of Symptoms Date: 02/14/17 Onset of Symptoms Time: 11:00 Presenting Symptoms: Left hemiparesis Specialty Discharge - Follow Up or Referrals
--- NOTE | 2017-02-19 12:00 | Neurology Progress Note ---
Neurology - PN : Subjective Interval history: Stable neurologically. No new problems reported. Continue to have dense left hemiplegia Exam (Progress Note) - Constitutional Vitals: Period Temp Pulse Resp BP Sys/Delgado Pulse Ox Last 24 Hr 97.1 F-98.3 F 48-73 12-27 147-191/55-86 94-99 Exam: GENERAL: Patient is in no acute distress. NECK: Neck is supple. There is no JVD. No carotid bruits present. No thyroid masses. CVS: First and second heart sounds are normal. There is no S3 present. Regular rate and rhythm. RESPIRATORY: Lungs are clear to auscultation without any rales or rhonchi. ABDOMEN: Soft and non-tender. Bowel sounds are present. There is no hepatosplenomegaly. EXT: There is no palpable edema. Peripheral pulses are present. Skin: No rashes Central Nervous system: General: Alert, awake Speech: Fluent Comprehension: Fair Facial expressions: Normal Cranial Nerves: Pupils are equally reactive to light. She has left homonymous hemianopia. Motor: Bulk and Tone is normal. Strength in the right 3/5 Strength in the left 0-1/5 Sensory: Unreliable but she has left-sided extinction and neglect. Reflexes: 1+ and symmetrical Cerebellar function: Cannot be tested Toes: Left toe is upgoing Gait: Not tested Results - Labs CBC & BMP: 02/19/17 04:35 02/19/17 04:35 Assessment and Plan (1) Acute CVA (cerebrovascular accident) Status: Acute Assessment and plan: Continue Xarelto Continue current treatment with PT OT and ST Barium swallow is pending Current Visit: Yes Quality Measures - Stroke Onset of Symptoms Date: 02/14/17 Onset of Symptoms Time: 11:00 Presenting Symptoms: Left hemiparesis Specialty Discharge - Follow Up or Referrals
[2017-02-19] MEDS: DOCUSATE SODIUM 100 MG/10 ML UDCUP PO SCH (22:06)
[2017-02-19] MEDS: ATORVASTATIN 40 MG TABLET PO SCH (22:06)
[2017-02-19] MEDS ORDERED: SODIUM CHLORIDE 0.9% 1,000 ML IV SCH (23:30)
[2017-02-20] MEDS: INSULIN LISPRO 100 UNIT/ML SUBCUT SCH ×4 (00:50→22:01)
[2017-02-20 02:14] LABS: Basophils # 0.1 10*3/uL (0.0-0.2); Basophils % 0.4 % (0.0-0.8); Eosinophils # 0.4 10*3/uL (0.0-0.87); Eosinophils % 2.6 % (0.00-10.9); Hematocrit 36.2 VOL% (35.7-47.0); Hemoglobin 12.2 GM/DL (12.0-16.0); Immature Granulocytes % 1.2 %; Immature Granulocytes Absolute 0.18 #; Lymphocytes # 3.7 10*3/uL (1.4-4.0); Mean Corpuscular HGB Conc 33.7 GM/DL (32-36); Mean Corpuscular Hemoglobin 23 PG (27-34); Mean Corpuscular Volume 69.3 FL (87-102); Monocytes # 1.5 10*3/uL (0.11-0.8); Monocytes % 10.2 % (1.7-12.7); Neutrophils # 9.1 10*3/uL (1.4-7.4); Neutrophils % 60.6 % (38.7-73.9); Platelet Count 389 T/CUMM (130-400); Red Blood Count 5.22 MC/CUMM (3.8-5.5); Red Cell Distribution Width 15.4 % (9.3-17.3)
[2017-02-20 02:39] LABS: Calcium 9.7 MG/DL (8.5-10.1); Magnesium 2.1 MG/DL (1.8-2.4); Osmolality,Calculated 288.1 MOS/KG (273-304); Potassium 4.9 MMOL/L (3.5-5.1)
[2017-02-20] MEDS: CLINDAMYCIN INJ 600 MG in PREMIX 1 EACH IV SCH ×3 (03:56→18:16)
[2017-02-20] MEDS: RIVAROXABAN 20 MG TABLET PO SCH (09:08)
[2017-02-20] MEDS: MAGNESIUM CHLORIDE 64 MG TABLET PO SCH ×2 (09:08→22:00)
[2017-02-20] MEDS: DOCUSATE SODIUM 100 MG/10 ML UDCUP PO SCH ×2 (09:08→22:00)
[2017-02-20] MEDS: amLODIPine 10 MG TABLET PO SCH (09:08)
[2017-02-20] MEDS: POTASSIUM CHLORIDE 20 MEQ TABLET PO SCH (09:08)
[2017-02-20] MEDS: ALLOPURINOL 300 MG TABLET PO SCH (09:09)
[2017-02-20] MEDS: METOPROLOL TARTRATE 100 MG TABLET PO SCH ×2 (11:07→22:00)
--- NOTE | 2017-02-20 11:48 | Hospitalist Progress Note ---
Assessment and Plan (1) Pneumonia Status: Acute Assessment and plan: Tachypnea has improved and her white blood cell count is coming down. She has evidence of a right lower lobe infiltrate suggestive of aspiration. She is at high risk for aspiration due to her right MCA stroke. Although she has passed a swallow evaluation. Continue clindamycin 600 mg IV every 8 hours. Further recommendations will depend on her response to therapy. 02/20/17 She remains afebrile. Tachypnea has resolved. Oxygen saturations are 97-99%. Continue antibiotics Current Visit: Yes Qualifiers: Pneumonia type: aspiration pneumonia Aspiration pneumonia type: unspecified Laterality: right Lung location: lower lobe of lung Qualified Code(s): J69.0 - Pneumonitis due to inhalation of food and vomit (2) Atrial fibrillation Status: Acute Assessment and plan: Xarelto has been started Metoprolol has been increased to 100 mg twice daily. She has converted to sinus rhythm Current Visit: Yes Qualifiers: Atrial fibrillation type: unspecified Qualified Code(s): I48.91 - Unspecified atrial fibrillation (3) Acute CVA (cerebrovascular accident) Status: Acute Assessment and plan: Patient with left sided deficit. Carotid shows occlusion of the right ICA. I have added Lipitor for her low HDL. On Xarelto. CT scan reveals a right MCA stroke Current Visit: Yes (4) Uncontrolled hypertension Status: Chronic Assessment and plan: Increase Norvasc and metoprolol. Hydralazine added,Consider Cozaar versus clonidine TTS patch if BP remians elevated. Current Visit: Yes (5) Hyperglycemia Status: Acute Assessment and plan: Mildly elevated hemoglobin A1c of 6.7 and a glucose of 167 on admission. Will order Accu-Cheks and continue to monitor. We will add metformin 500 twice daily Current Visit: Yes Hospitalist: Subjective Interval history: Patient seen and examined. No acute events overnight. Case discussed with nursing staff. Labs reviewed. No acute changes overnight. Patient was transferred to the floor. Blood pressure is stable. I discussed the case with both daughters at the bedside on rounds. They are awaiting swing bed approval from her insurance to go to [place]. Exam - Constitutional Vitals: Period Temp Pulse Resp BP Sys/Delgado Pulse Ox Last 24 Hr 97.2 F-98.8 F 49-75 16-21 135-176/61-86 96-100 Exam: Constitutional System: No distress. No tremulousness. Speech has minimally improved. Head: Normocephalic, atraumatic. Ears, Nose and Throat System: No pain or tenderness. No epistaxis or discharge. Eyes System: Pupils equal, round, and reactive. Right gaze preference Neck: Supple, without adenopathy, No jugular venous distention. Respiratory System: Chest clear to auscultation. Decreased breath sounds at the bases Cardiovascular System: Heart with regular rate and rhythm. No murmur. GI System: Abdomen soft, nontender. Normo active bowel sounds present. Musculoskeletal System: limbs with no pedal edema. Full distal pulses. Normal capillary refill. Neurological System: Left hemiparesis, right gaze preference. Patient is awake and alert. She is able to answer questions. - Expanded Left Upper Extremity Neurosensory exam: Absent: 2-point discrimination (Left upper extremity flaccid ; 0/0 strength) Results - Labs CBC & BMP: 02/20/17 01:24 02/20/17 01:24 Lab Results: I have reviewed the past 24 hour labs Quality Measures - Stroke Onset of Symptoms Date: 02/14/17 Onset of Symptoms Time: 11:00 Presenting Symptoms: Left hemiparesis Specialty Discharge - Follow Up or Referrals
[2017-02-20] MEDS: metFORMIN 500 MG TABLET PO SCH (18:05)
[2017-02-20] MEDS: ATORVASTATIN 40 MG TABLET PO SCH (22:00)
[2017-02-21] MEDS: CLINDAMYCIN INJ 600 MG in PREMIX 1 EACH IV SCH ×3 (02:10→17:23)
[2017-02-21 03:41] LABS: Basophils # 0.1 10*3/uL (0.0-0.2); Basophils % 0.5 % (0.0-0.8); Eosinophils # 0.6 10*3/uL (0.0-0.87); Eosinophils % 3.9 % (0.00-10.9); Hematocrit 37.1 VOL% (35.7-47.0); Hemoglobin 12.2 GM/DL (12.0-16.0); Immature Granulocytes % 1.2 %; Immature Granulocytes Absolute 0.18 #; Lymphocytes # 3.1 10*3/uL (1.4-4.0); Lymphocytes % 21.4 % (21.3-54.2); Mean Corpuscular HGB Conc 32.9 GM/DL (32-36); Mean Corpuscular Hemoglobin 23 PG (27-34); Mean Corpuscular Volume 70.3 FL (87-102); Mean Platelet Volume 10.6 FL (9.6-12.0); Monocytes # 1.7 10*3/uL (0.11-0.8); Monocytes % 11.8 % (1.7-12.7); Neutrophils # 8.9 10*3/uL (1.4-7.4); Neutrophils % 61.2 % (38.7-73.9); Platelet Count 369 T/CUMM (130-400); Red Blood Count 5.28 MC/CUMM (3.8-5.5); Red Cell Distribution Width 15.2 % (9.3-17.3); White Blood Count 14.6 T/CUMM (4-12)
[2017-02-21 04:13] LABS: Calcium 9.9 MG/DL (8.5-10.1); Magnesium 2.1 MG/DL (1.8-2.4); Potassium 4.5 MMOL/L (3.5-5.1)
[2017-02-21] MEDS: RIVAROXABAN 20 MG TABLET PO SCH (08:25)
[2017-02-21] MEDS: metFORMIN 500 MG TABLET PO SCH ×2 (08:25→17:15)
[2017-02-21] MEDS: INSULIN LISPRO 100 UNIT/ML SUBCUT SCH ×4 (09:38→21:20)
[2017-02-21] MEDS: amLODIPine 10 MG TABLET PO SCH (09:39)
[2017-02-21] MEDS: MAGNESIUM CHLORIDE 64 MG TABLET PO SCH ×2 (09:39→21:37)
[2017-02-21] MEDS: ALLOPURINOL 300 MG TABLET PO SCH (09:39)
[2017-02-21] MEDS: METOPROLOL TARTRATE 100 MG TABLET PO SCH ×2 (09:39→21:36)
[2017-02-21] MEDS: DOCUSATE SODIUM 100 MG/10 ML UDCUP PO SCH ×2 (11:20→21:36)
--- NOTE | 2017-02-21 13:17 | Neurology Progress Note ---
Neurology - PN : Subjective Interval history: Patient seems to be doing about the same. No new problems reported. Oral intake is not adequate as per family. No choking reported the Exam (Progress Note) - Constitutional Vitals: Period Temp Pulse Resp BP Sys/Delgado Pulse Ox Last 24 Hr 97.0 F-98.7 F 57-65 18-20 145-164/71-83 93-100 Exam: GENERAL: Patient is in no acute distress. NECK: Neck is supple. There is no JVD. No carotid bruits present. No thyroid masses. CVS: First and second heart sounds are normal. There is no S3 present. Regular rate and rhythm. RESPIRATORY: Lungs are clear to auscultation without any rales or rhonchi. ABDOMEN: Soft and non-tender. Bowel sounds are present. There is no hepatosplenomegaly. EXT: There is no palpable edema. Peripheral pulses are present. Skin: No rashes Central Nervous system: General: Alert, awake Speech: Fluent Comprehension: Fair Facial expressions: Normal Cranial Nerves: Pupils are equally reactive to light. She has left homonymous hemianopia. Motor: Bulk and Tone is normal. Strength in the right 3/5 Strength in the left 0-1/5 Sensory: Unreliable but she has left-sided extinction and neglect. Reflexes: 1+ and symmetrical Cerebellar function: Cannot be tested Toes: Left toe is upgoing Gait: Not tested Results - Labs CBC & BMP: 02/21/17 02:00 02/21/17 02:00 Assessment and Plan (1) Acute CVA (cerebrovascular accident) Status: Acute Assessment and plan: Continue Xarelto Continue current treatment with PT OT and ST Discuss this at length with the family, if her oral intake does not improve then she may require PEG tube placement. Current Visit: Yes Quality Measures - Stroke Onset of Symptoms Date: 02/14/17 Onset of Symptoms Time: 11:00 Presenting Symptoms: Left hemiparesis Specialty Discharge - Follow Up or Referrals
--- NOTE | 2017-02-21 16:10 | Hospitalist Progress Note ---
Assessment and Plan (1) Pneumonia Status: Acute Assessment and plan: Tachypnea has improved and her white blood cell count is coming down. She has evidence of a right lower lobe infiltrate suggestive of aspiration. She is at high risk for aspiration due to her right MCA stroke. Although she has passed a swallow evaluation. Continue clindamycin 600 mg IV every 8 hours. Further recommendations will depend on her response to therapy. 02/21/17 She remains afebrile. Tachypnea has resolved. Oxygen saturations are 97-99%. Continue antibiotics. She has completed a 5 day course as of today. Current Visit: Yes Qualifiers: Pneumonia type: aspiration pneumonia Aspiration pneumonia type: unspecified Laterality: right Lung location: lower lobe of lung Qualified Code(s): J69.0 - Pneumonitis due to inhalation of food and vomit (2) Atrial fibrillation Status: Acute Assessment and plan: Xarelto has been started Metoprolol has been increased to 100 mg twice daily. She has converted to sinus rhythm Current Visit: Yes Qualifiers: Atrial fibrillation type: unspecified Qualified Code(s): I48.91 - Unspecified atrial fibrillation (3) Acute CVA (cerebrovascular accident) Status: Acute Assessment and plan: Patient with left sided deficit. Carotid shows occlusion of the right ICA. I have added Lipitor for her low HDL. On Xarelto. CT scan reveals a right MCA stroke Current Visit: Yes (4) Uncontrolled hypertension Status: Chronic Assessment and plan: Increase Norvasc and metoprolol. Hydralazine added,Consider Cozaar versus clonidine TTS patch if BP remians elevated. Current Visit: Yes (5) Hyperglycemia Status: Acute Assessment and plan: Mildly elevated hemoglobin A1c of 6.7 and a glucose of 167 on admission. Will order Accu-Cheks and continue to monitor. We will add metformin 500 twice daily Current Visit: Yes Hospitalist: Subjective Interval history: Patient seen and examined. No acute events overnight. Case discussed with nursing staff. Labs reviewed. No significant changes noted. Son at the bedside. We had a lengthy discussion regarding her recovery and prognosis. She is awaiting transfer to [place] for swing bed pending insurance approval. Exam - Constitutional Vitals: Period Temp Pulse Resp BP Sys/Delgado Pulse Ox Last 24 Hr 97.0 F-98.6 F 57-65 18-20 145-164/71-83 93-100 Exam: Constitutional System: No distress. No tremulousness. Speech has minimally improved. Head: Normocephalic, atraumatic. Ears, Nose and Throat System: No pain or tenderness. No epistaxis or discharge. Eyes System: Pupils equal, round, and reactive. Right gaze preference Neck: Supple, without adenopathy, No jugular venous distention. Respiratory System: Chest clear to auscultation. Decreased breath sounds at the bases Cardiovascular System: Heart with regular rate and rhythm. No murmur. GI System: Abdomen soft, nontender. Normo active bowel sounds present. Musculoskeletal System: limbs with no pedal edema. Full distal pulses. Normal capillary refill. Neurological System: Left hemiparesis, right gaze preference. Patient is awake and alert. She is able to answer questions. - Expanded Left Upper Extremity Neurosensory exam: Absent: 2-point discrimination (Left upper extremity flaccid ; 0/0 strength) Results - Labs CBC & BMP: 02/21/17 02:00 02/21/17 02:00 Lab Results: I have reviewed the past 24 hour labs Quality Measures - Stroke Onset of Symptoms Date: 02/14/17 Onset of Symptoms Time: 11:00 Presenting Symptoms: Left hemiparesis Specialty Discharge - Follow Up or Referrals
[2017-02-21] MEDS: ATORVASTATIN 40 MG TABLET PO SCH (21:36)
[2017-02-22] MEDS: CLINDAMYCIN INJ 600 MG in PREMIX 1 EACH IV SCH ×3 (02:00→18:03)
[2017-02-22 05:55] LABS: Basophils # 0.1 10*3/uL (0.0-0.2); Basophils % 0.6 % (0.0-0.8); Eosinophils # 0.5 10*3/uL (0.0-0.87); Eosinophils % 3.1 % (0.00-10.9); Hematocrit 36.5 VOL% (35.7-47.0); Hemoglobin 12.2 GM/DL (12.0-16.0); Immature Granulocytes % 1.4 %; Lymphocytes # 3.2 10*3/uL (1.4-4.0); Mean Corpuscular HGB Conc 33.4 GM/DL (32-36); Mean Corpuscular Hemoglobin 23 PG (27-34); Mean Corpuscular Volume 69.9 FL (87-102); Monocytes # 1.7 10*3/uL (0.11-0.8); Monocytes % 11.5 % (1.7-12.7); NRBC # 0.02 10*3/uL; Neutrophils # 8.8 10*3/uL (1.4-7.4); Neutrophils % 61.4 % (38.7-73.9); Platelet Count 373 T/CUMM (130-400); Red Blood Count 5.22 MC/CUMM (3.8-5.5); Red Cell Distribution Width 15.4 % (9.3-17.3); White Blood Count 14.4 T/CUMM (4-12)
[2017-02-22 06:18] LABS: Calcium 10.2 MG/DL (8.5-10.1); Magnesium 2.3 MG/DL (1.8-2.4); Osmolality,Calculated 290.8 MOS/KG (273-304); Potassium 4.8 MMOL/L (3.5-5.1)
[2017-02-22] MEDS: INSULIN LISPRO 100 UNIT/ML SUBCUT SCH ×4 (07:14→21:25)
[2017-02-22] MEDS: metFORMIN 500 MG TABLET PO SCH ×2 (08:55→17:59)
[2017-02-22] MEDS: MAGNESIUM CHLORIDE 64 MG TABLET PO SCH ×2 (08:55→21:25)
[2017-02-22] MEDS: RIVAROXABAN 20 MG TABLET PO SCH (08:56)
[2017-02-22] MEDS: METOPROLOL TARTRATE 100 MG TABLET PO SCH ×2 (08:56→21:25)
[2017-02-22] MEDS: DOCUSATE SODIUM 100 MG/10 ML UDCUP PO SCH ×2 (08:57→21:25)
[2017-02-22] MEDS: amLODIPine 10 MG TABLET PO SCH (08:57)
[2017-02-22] MEDS: ALLOPURINOL 300 MG TABLET PO SCH (08:57)
--- NOTE | 2017-02-22 09:06 | Neurology Progress Note ---
Neurology - PN : Subjective Interval history: Patient is somewhat regressed. She is not talking at all. Sleeping primarily mostly. Not eating much either. Exam (Progress Note) - Constitutional Vitals: Period Temp Pulse Resp BP Sys/Delgado Pulse Ox Last 24 Hr 97.0 F-98.6 F 54-73 17-20 139-159/57-86 92-99 Exam: GENERAL: Patient is in no acute distress. NECK: Neck is supple. There is no JVD. No carotid bruits present. No thyroid masses. CVS: First and second heart sounds are normal. There is no S3 present. Regular rate and rhythm. RESPIRATORY: Lungs are clear to auscultation without any rales or rhonchi. ABDOMEN: Soft and non-tender. Bowel sounds are present. There is no hepatosplenomegaly. EXT: There is no palpable edema. Peripheral pulses are present. Skin: No rashes Central Nervous system: General: Sleepy but arousable Speech: Fluent but not talking much Comprehension: Fair Facial expressions: Normal Cranial Nerves: Pupils are equally reactive to light. She has left homonymous hemianopia. Motor: Bulk and Tone is normal. Strength in the right 3/5 Strength in the left 0-1/5 Sensory: Unreliable but she has left-sided extinction and neglect. Reflexes: 1+ and symmetrical Cerebellar function: Cannot be tested Toes: Left toe is upgoing Gait: Not tested Results - Labs CBC & BMP: 02/22/17 03:52 02/22/17 03:52 Assessment and Plan (1) Acute CVA (cerebrovascular accident) Status: Acute Assessment and plan: Continue Xarelto Continue current treatment with PT OT and ST Oral intake continue to stay quite low CT head without contrast Current Visit: Yes Quality Measures - Stroke Onset of Symptoms Date: 02/14/17 Onset of Symptoms Time: 11:00 Presenting Symptoms: Left hemiparesis Specialty Discharge - Follow Up or Referrals
--- NOTE | 2017-02-22 10:09 | CT Report ---
History: CVA Date: 02/22/2017 Study: CT head without contrast Comparison exam: February 16, [address] sections were obtained through the brain without contrast. The ventricles are midline in position without evidence of hydrocephalus. There is no new mass or gross area of parenchymal hemorrhage. The large wedge-shaped area of recent right MCA distribution ischemia involving right frontal, temporal, and parietal lobes is better defined. Small areas of low-density compatible with ischemic change in the right caudate nucleus and anterior right putamen are slightly more prominent. There is a 22 mm area of ischemia in the right parietal lobe which is now apparent. There is no extra-axial hematoma. The sinuses are generally clear. There is no obvious skull fracture. Impression: Areas of subacute ischemia in a right MCA distribution. A separate small area in the anterior right parietal region is now apparent. A small area of subacute ischemia in the right caudate head and anterior right putamen appears more prominent. This CT exam was performed using one or more the following dose reduction techniques: Automated exposure control, adjustment of the MA and/or KV according to patient size, or use of iterative reconstruction technique. PROCEDURE INTERPRETED AT [facility] DEPARTMENT OF RADIOLOGY Final Report Signed by: Dr. Jimena Roman
--- NOTE | 2017-02-22 13:36 | Hospitalist Progress Note ---
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 The patient is less alert today than she was in the last few days according to Dr. Lizzie Fernandez. Current Visit: Yes (2) Dysphagia due to recent cerebral infarction Status: Acute Current Visit: Yes (3) Pneumonia Status: Acute Current Visit: Yes Qualifiers: Pneumonia type: aspiration pneumonia Aspiration pneumonia type: unspecified Laterality: right Lung location: lower lobe of lung Qualified Code(s): J69.0 - Pneumonitis due to inhalation of food and vomit Hospitalist: Subjective Interval history: The patient is admitted to the hospital with right middle cerebral artery stroke. The patient has atrial fibrillation underlying her illness and she is being treated for aspiration pneumonia with clindamycin. The patient remains on Xarelto and metoprolol to control and treat her atrial fibrillation. The patient is mostly somnolent but will awake to verbal stimulus. The patient's daughters are at the bedside and I reviewed her plan of care with them. I coordinate care with the counter caser. We are making application to [facility] for eventual transfer. Exam - Constitutional Vitals: Period Temp Pulse Resp BP Sys/Delgado Pulse Ox Last 24 Hr 97.0 F-98.3 F 54-78 17-19 139-159/57-89 92-96 Exam: Constitutional System: Minimal distress. No tremulousness. The patient is somnolent but arousable Head: Normocephalic, atraumatic. Ears, Nose and Throat System: No evidence of Otitis or Mastoiditis. No epistaxis or discharge Eyes System: Pupils equal, round, and reactive. Extraocular muscles intact. Neck: Supple, without adenopathy, No jugular venous distention. No thyromegaly , neck mass, or prior surgery apparent. Respiratory System: Chest upper airway congestion worse on the right Cardiovascular System: Heart with irregular rate and rhythm. No murmur. - Expanded Left Upper Extremity Neurosensory exam: Absent: 2-point discrimination (Left upper extremity flaccid ; 0/0 strength) Results - Labs CBC & BMP: 02/22/17 03:52 02/22/17 03:52 Labs: CT scan today reveals subacute infarction of the right middle cerebral artery; no hemorrhage is seen. Quality Measures - Stroke Onset of Symptoms Date: 02/14/17 Onset of Symptoms Time: 11:00 Presenting Symptoms: Left hemiparesis Specialty Discharge - Follow Up or Referrals
[2017-02-22] MEDS: ATORVASTATIN 40 MG TABLET PO SCH (21:25)
[2017-02-23] MEDS: CLINDAMYCIN INJ 600 MG in PREMIX 1 EACH IV SCH ×3 (01:22→17:32)
[2017-02-23] MEDS: INSULIN LISPRO 100 UNIT/ML SUBCUT SCH ×4 (08:55→23:00)
[2017-02-23] MEDS: amLODIPine 10 MG TABLET PO SCH (09:37)
[2017-02-23] MEDS: METOPROLOL TARTRATE 100 MG TABLET PO SCH ×2 (09:37→23:17)
[2017-02-23] MEDS: RIVAROXABAN 20 MG TABLET PO SCH (09:37)
[2017-02-23] MEDS: ALLOPURINOL 300 MG TABLET PO SCH (09:37)
[2017-02-23] MEDS: DOCUSATE SODIUM 100 MG/10 ML UDCUP PO SCH ×2 (09:38→23:17)
[2017-02-23] MEDS: metFORMIN 500 MG TABLET PO SCH ×2 (09:38→16:40)
[2017-02-23] MEDS: MAGNESIUM CHLORIDE 64 MG TABLET PO SCH ×2 (09:38→23:17)
--- NOTE | 2017-02-23 11:57 | Hospitalist Progress Note ---
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 The patient is a little more alert today than she was yesterday. If the patient is able to awaken and start some intake we could avoid PEG tube. I coordinated care with the window caser today and she is making application for swing bed. Current Visit: Yes (2) Dysphagia due to recent cerebral infarction Status: Acute Current Visit: Yes (3) Pneumonia Status: Acute Current Visit: Yes Qualifiers: Pneumonia type: aspiration pneumonia Aspiration pneumonia type: unspecified Laterality: right Lung location: lower lobe of lung Qualified Code(s): J69.0 - Pneumonitis due to inhalation of food and vomit Hospitalist: Subjective Interval history: The patient continues very lethargic. She is taking only a few sips. I discussed PEG tube feedings with the patient's daughter and her . The patient is a little more alert today than she was yesterday. Exam - Constitutional Vitals: Period Temp Pulse Resp BP Sys/Delgado Pulse Ox Last 24 Hr 96.6 F-98.5 F 52-97 18-20 123-161/58-115 96-100 Exam: Constitutional System: Minimal distress. No tremulousness. The patient is alert but minimally interactive. She does follow conversation and nods appropriately. Head: Normocephalic, atraumatic. Ears, Nose and Throat System: No evidence of Otitis or Mastoiditis. No epistaxis or discharge Eyes System: Pupils equal, round, and reactive. Extraocular muscles intact. Neck: Supple, without adenopathy, No jugular venous distention. No thyromegaly , neck mass, or prior surgery apparent. Respiratory System: Chest upper airway congestion worse on the right Cardiovascular System: Heart with irregular rate and rhythm. No murmur. - Expanded Left Upper Extremity Neurosensory exam: Absent: 2-point discrimination (Left upper extremity flaccid ; 0/0 strength) Results - Labs CBC & BMP: 02/22/17 03:52 02/22/17 03:52 Lab Results: I have reviewed the past 24 hour labs Quality Measures - Stroke Onset of Symptoms Date: 02/14/17 Onset of Symptoms Time: 11:00 Presenting Symptoms: Left hemiparesis Specialty Discharge - Follow Up or Referrals
[2017-02-23] MEDS: ATORVASTATIN 40 MG TABLET PO SCH (23:17)
[2017-02-24] MEDS: CLINDAMYCIN INJ 600 MG in PREMIX 1 EACH IV SCH ×3 (02:59→18:51)
[2017-02-24 07:20] LABS: Basophils # 0.1 10*3/uL (0.0-0.2); Basophils % 0.7 % (0.0-0.8); Eosinophils # 0.5 10*3/uL (0.0-0.87); Eosinophils % 3.2 % (0.00-10.9); Hematocrit 39.6 VOL% (35.7-47.0); Hemoglobin 12.8 GM/DL (12.0-16.0); Immature Granulocytes % 1.5 %; Immature Granulocytes Absolute 0.24 #; Lymphocytes # 3.5 10*3/uL (1.4-4.0); Lymphocytes % 22.3 % (21.3-54.2); Mean Corpuscular HGB Conc 32.3 GM/DL (32-36); Mean Corpuscular Hemoglobin 23 PG (27-34); Mean Corpuscular Volume 70.6 FL (87-102); Mean Platelet Volume 10.9 FL (9.6-12.0); Monocytes # 1.7 10*3/uL (0.11-0.8); Monocytes % 10.9 % (1.7-12.7); Neutrophils # 9.6 10*3/uL (1.4-7.4); Neutrophils % 61.4 % (38.7-73.9); Platelet Count 356 T/CUMM (130-400); Red Blood Count 5.61 MC/CUMM (3.8-5.5); White Blood Count 15.7 T/CUMM (4-12)
[2017-02-24 07:47] LABS: Calcium 10.7 MG/DL (8.5-10.1); Magnesium 2.2 MG/DL (1.8-2.4); Osmolality,Calculated 291.8 MOS/KG (273-304); Potassium 4.4 MMOL/L (3.5-5.1)
[2017-02-24] MEDS: INSULIN LISPRO 100 UNIT/ML SUBCUT SCH ×4 (07:47→21:09)
[2017-02-24] MEDS ORDERED: DEXTROSE 50% 25 GM/50 ML VIAL IV PRN (08:30)
[2017-02-24] MEDS: amLODIPine 10 MG TABLET PO SCH (09:33)
[2017-02-24] MEDS: METOPROLOL TARTRATE 100 MG TABLET PO SCH ×2 (09:33→21:28)
[2017-02-24] MEDS: metFORMIN 500 MG TABLET PO SCH ×2 (10:34→16:54)
[2017-02-24] MEDS: DOCUSATE SODIUM 100 MG/10 ML UDCUP PO SCH ×2 (10:35→21:27)
[2017-02-24] MEDS: RIVAROXABAN 20 MG TABLET PO SCH (10:35)
[2017-02-24] MEDS: MAGNESIUM CHLORIDE 64 MG TABLET PO SCH ×2 (10:35→21:28)
[2017-02-24] MEDS: ALLOPURINOL 300 MG TABLET PO SCH (10:35)
--- NOTE | 2017-02-24 11:08 | Hospitalist Progress Note ---
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 The patient is a little more alert today than she was yesterday. The patient's family has decided to have PEG tube placement. I will consult Dr. Valencia. Current Visit: Yes (2) Dysphagia due to recent cerebral infarction Status: Acute Current Visit: Yes (3) Pneumonia Status: Acute Current Visit: Yes Qualifiers: Pneumonia type: aspiration pneumonia Aspiration pneumonia type: unspecified Laterality: right Lung location: lower lobe of lung Qualified Code(s): J69.0 - Pneumonitis due to inhalation of food and vomit Hospitalist: Subjective Interval history: Ms. yang is unable to sustain oral intake due to reduced attention span and difficulty initiating swallow. The family has considered options and is requesting feeding tube placement via PEG. I will consult Dr. Valencia. Exam - Constitutional Vitals: Period Temp Pulse Resp BP Sys/Delgado Pulse Ox Last 24 Hr 97.0 F-98.2 F 58-73 16-20 140-181/46-79 94-100 Exam: Constitutional System: Minimal distress. No tremulousness. The patient is alert but minimally interactive. She does follow conversation and nods appropriately. Head: Normocephalic, atraumatic. Ears, Nose and Throat System: No evidence of Otitis or Mastoiditis. No epistaxis or discharge Eyes System: Pupils equal, round, and reactive. Extraocular muscles intact. Neck: Supple, without adenopathy, No jugular venous distention. No thyromegaly , neck mass, or prior surgery apparent. Respiratory System: Chest upper airway congestion worse on the right Cardiovascular System: Heart with irregular rate and rhythm. No murmur. - Expanded Left Upper Extremity Neurosensory exam: Absent: 2-point discrimination (Left upper extremity flaccid ; 0/0 strength) Results - Labs CBC & BMP: 02/24/17 06:35 02/24/17 06:35 Lab Results: I have reviewed the past 24 hour labs Quality Measures - Stroke Onset of Symptoms Date: 02/14/17 Onset of Symptoms Time: 11:00 Presenting Symptoms: Left hemiparesis Specialty Discharge - Follow Up or Referrals
[2017-02-24] MEDS: ZINC OXIDE PASTE 113 GM TUBE TOP SCH ×2 (12:08→21:27)
--- NOTE | 2017-02-24 14:51 | Neurology Progress Note ---
Neurology - PN : Subjective Interval history: Patient is more alert and awake today. A repeat CAT scan did not reveal any new pathology. Patient is more talkative today. She is is scheduled to get PEG tube placement tomorrow morning. Exam (Progress Note) - Constitutional Vitals: Period Temp Pulse Resp BP Sys/Delgado Pulse Ox Last 24 Hr 97.0 F-98.6 F 48-73 16-20 123-181/46-79 94-100 Exam: GENERAL: Patient is in no acute distress. NECK: Neck is supple. There is no JVD. No carotid bruits present. No thyroid masses. CVS: First and second heart sounds are normal. There is no S3 present. Regular rate and rhythm. RESPIRATORY: Lungs are clear to auscultation without any rales or rhonchi. ABDOMEN: Soft and non-tender. Bowel sounds are present. There is no hepatosplenomegaly. EXT: There is no palpable edema. Peripheral pulses are present. Skin: No rashes Central Nervous system: General: Sleepy but arousable Speech: Fluent but not talking much Comprehension: Fair Facial expressions: Normal Cranial Nerves: Pupils are equally reactive to light. She has left homonymous hemianopia. Motor: Bulk and Tone is normal. Strength in the right 3/5 Strength in the left 0-1/5 Sensory: Unreliable but she has left-sided extinction and neglect. Reflexes: 1+ and symmetrical Cerebellar function: Cannot be tested Toes: Left toe is upgoing Gait: Not tested Results - Labs CBC & BMP: 02/24/17 06:35 02/24/17 06:35 Assessment and Plan (1) Acute CVA (cerebrovascular accident) Status: Acute Assessment and plan: Xarelto is on hold for PEG tube placement PEG tube placement in the morning followed by a [facility] facility placement Sign off please call as needed Current Visit: Yes Quality Measures - Stroke Onset of Symptoms Date: 02/14/17 Onset of Symptoms Time: 11:00 Presenting Symptoms: Left hemiparesis Specialty Discharge - Follow Up or Referrals
--- NOTE | 2017-02-24 18:31 | Gastrointestinal Progress Note ---
Assessment and Plan (1) Dysphagia due to recent cerebral infarction Status: Acute Assessment and plan: Patient is experiencing some dysphagia at this time. She has difficulty sealing her mouth around a straw presented for speech pathology evaluation. She is not completely dysarthric, surprisingly it is difficult to gauge how soon her swallowing will resume, if at all. Unfortunately the patient is very adamant about avoiding a PEG tube and I have discussed this with the daughters who are wanting to wait until more family arrives tomorrow before discussing this further. For right now we will continue the aspirin and Lovenox regimen previously written. I have discussed the risks and benefits of the procedure with the daughter and granddaughter, Ashanti. Risk of the procedure include bleeding, infection, perforation, cardiac and pulmonary compromise as well as peritonitis from the tube itself. I can certainly provide this service at any point. There is no absolute baez to place this tomorrow, the patient may decide that she does not wish to have a feeding tube at all. 02/16/17--This patient passed her swallowing study this morning and has been approved to have nectar thickened liquids. I am going to hold off on arranging for the upper endoscopy/PEG tube is neither she nor her family is mentally prepared to accept this alternative. She may certainly improve as far as her capacity for solids in the future as time passes from the initial inciting event. I will certainly be happy to put this PEG tube in in the future should circumstances warrant this and the family agrees. Given her improvement already , I will sign off at this time. 02/24/17--Patient's family has agreed to PEG tube placement. The nurse in charge of the patient did not give the patient her Xarelto this morning and therefore we can wait 3 days before placement of PEG tube for safety sake. Because of his lapse we will be able to place the PEG tube on Wednesday, instead of waiting until Wednesday. Current Visit: Yes (2) Anemia Status: Acute Assessment and plan: Patient has mild anemia. She is not to my knowledge undergone either EGD or colonoscopy. We will perform EGD as a result of PEG tube placement ultimately, should she decide to undergo evaluation. I will be able to tell whether or not there appears to be a bleeding source in the upper GI tract at the time of this endoscopy. If the patient were having bright red blood per rectum we could also consider colonoscopy down the road, as clinically appropriate. For the present time will continue observation with occasional CBCs to follow the patient's hematocrit. Thus far this is drifted down to the 35.5% range from baseline of 42.5 back on 01/24/17. 02/16/17--The patient's hematocrit is stable at 35.6%. We will hold off on any further evaluation for the present time. We can consider upper and lower endoscopy should the patient developed severe anemia when taking Xarelto down the road. Would suggest periodic monitoring of the patient's hematocrit given this low level of anemia present. 03/09--the patient's hematocrit is back up to 39%, it does not appear to be negatively impacted by the previous Xarelto use. Current Visit: Yes Gastroenterology - PN: Subj Interval history: No new complaints, patient's family members decided that she does want the patient to have a PEG tube placement. Exam (Progress Note) - Constitutional Vitals: Period Temp Pulse Resp BP Sys/Delgado Pulse Ox Last 24 Hr 97.0 F-98.6 F 48-73 16-20 123-181/46-73 94-100 - Respiratory Respiratory exam: Present: clear to auscultation bilaterally - Cardiovascular Cardiovascular exam: Present: regular rate and rhythm - GI/Abdominal GI/Abdominal exam: Present: normal bowel sounds, soft. Absent: distended, guarding, tenderness, rebound - Extremities Exam Extremities exam: Absent: edema - Neurological Exam Neurological exam: Present: altered. Absent: alert, oriented X3 - Psychiatric Psychiatric exam: Present: flat affect Results - Labs CBC & BMP: 02/24/17 06:35 02/24/17 06:35 Specialty Discharge - Follow Up or Referrals
[2017-02-24] MEDS: ATORVASTATIN 40 MG TABLET PO SCH (21:28)
[2017-02-25] MEDS: CLINDAMYCIN INJ 600 MG in PREMIX 1 EACH IV SCH ×3 (02:01→17:33)
[2017-02-25] MEDS: metFORMIN 500 MG TABLET PO SCH ×2 (07:30→17:34)
[2017-02-25] MEDS: INSULIN LISPRO 100 UNIT/ML SUBCUT SCH ×4 (07:30→22:41)
[2017-02-25] MEDS: DOCUSATE SODIUM 100 MG/10 ML UDCUP PO SCH ×2 (08:24→22:41)
[2017-02-25] MEDS: METOPROLOL TARTRATE 100 MG TABLET PO SCH ×2 (08:25→22:41)
[2017-02-25] MEDS: MAGNESIUM CHLORIDE 64 MG TABLET PO SCH ×2 (08:25→22:41)
[2017-02-25] MEDS: ALLOPURINOL 300 MG TABLET PO SCH (08:25)
[2017-02-25] MEDS: amLODIPine 10 MG TABLET PO SCH (08:25)
[2017-02-25] MEDS: ZINC OXIDE PASTE 113 GM TUBE TOP SCH ×2 (08:25→22:41)
--- NOTE | 2017-02-25 16:11 | Hospitalist Progress Note ---
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 The patient is a little more alert today than she was yesterday. The patient's family has decided to have PEG tube placement. Dr. Sanchez anticipates this on Wednesday. Current Visit: Yes (2) Dysphagia due to recent cerebral infarction Status: Acute Current Visit: Yes (3) Pneumonia Status: Acute Current Visit: Yes Qualifiers: Pneumonia type: aspiration pneumonia Aspiration pneumonia type: unspecified Laterality: right Lung location: lower lobe of lung Qualified Code(s): J69.0 - Pneumonitis due to inhalation of food and vomit Hospitalist: Subjective Interval history: Mrs. yang is resting quietly. She was eating a few bites of pudding and able to swallow a little bit of iced tea. She is unable to meet her nutritional needs unable to swallow pills. We anticipate PEG tube placement on Wednesday and her family has given consent. Exam - Constitutional Vitals: Period Temp Pulse Resp BP Sys/Delgado Pulse Ox Last 24 Hr 97.1 F-98.1 F 49-69 16-20 124-132/60-84 96-96 Exam: Constitutional System: Minimal distress. No tremulousness. The patient is alert but minimally interactive. She does follow conversation and nods appropriately. Head: Normocephalic, atraumatic. Ears, Nose and Throat System: No evidence of Otitis or Mastoiditis. No epistaxis or discharge Eyes System: Pupils equal, round, and reactive. Extraocular muscles intact. Neck: Supple, without adenopathy, No jugular venous distention. No thyromegaly , neck mass, or prior surgery apparent. Respiratory System: Chest upper airway congestion worse on the right Cardiovascular System: Heart with irregular rate and rhythm. No murmur. - Expanded Left Upper Extremity Neurosensory exam: Absent: 2-point discrimination (Left upper extremity flaccid ; 0/0 strength) Results - Labs CBC & BMP: 02/24/17 06:35 02/24/17 06:35 Lab Results: I have reviewed the past 24 hour labs Quality Measures - Stroke Onset of Symptoms Date: 02/14/17 Onset of Symptoms Time: 11:00 Presenting Symptoms: Left hemiparesis Specialty Discharge - Follow Up or Referrals
--- NOTE | 2017-02-25 18:59 | Gastrointestinal Progress Note ---
Assessment and Plan (1) Dysphagia due to recent cerebral infarction Status: Acute Assessment and plan: Patient is experiencing some dysphagia at this time. She has difficulty sealing her mouth around a straw presented for speech pathology evaluation. She is not completely dysarthric, surprisingly it is difficult to gauge how soon her swallowing will resume, if at all. Unfortunately the patient is very adamant about avoiding a PEG tube and I have discussed this with the daughters who are wanting to wait until more family arrives tomorrow before discussing this further. For right now we will continue the aspirin and Lovenox regimen previously written. I have discussed the risks and benefits of the procedure with the daughter and granddaughter, Ashanti. Risk of the procedure include bleeding, infection, perforation, cardiac and pulmonary compromise as well as peritonitis from the tube itself. I can certainly provide this service at any point. There is no absolute baez to place this tomorrow, the patient may decide that she does not wish to have a feeding tube at all. 02/16/17--This patient passed her swallowing study this morning and has been approved to have nectar thickened liquids. I am going to hold off on arranging for the upper endoscopy/PEG tube is neither she nor her family is mentally prepared to accept this alternative. She may certainly improve as far as her capacity for solids in the future as time passes from the initial inciting event. I will certainly be happy to put this PEG tube in in the future should circumstances warrant this and the family agrees. Given her improvement already , I will sign off at this time. 02/24/17--Patient's family has agreed to PEG tube placement. The nurse in charge of the patient did not give the patient her Xarelto this morning and therefore we can wait 3 days before placement of PEG tube for safety sake. Because of his lapse we will be able to place the PEG tube on Wednesday, instead of waiting until Wednesday. 02/25/17--the patient's second day off of Xarelto, PEG tube replaced tomorrow morning. Current Visit: Yes (2) Anemia Status: Acute Assessment and plan: Patient has mild anemia. She is not to my knowledge undergone either EGD or colonoscopy. We will perform EGD as a result of PEG tube placement ultimately, should she decide to undergo evaluation. I will be able to tell whether or not there appears to be a bleeding source in the upper GI tract at the time of this endoscopy. If the patient were having bright red blood per rectum we could also consider colonoscopy down the road, as clinically appropriate. For the present time will continue observation with occasional CBCs to follow the patient's hematocrit. Thus far this is drifted down to the 35.5% range from baseline of 42.5 back on 01/24/17. 02/16/17--The patient's hematocrit is stable at 35.6%. We will hold off on any further evaluation for the present time. We can consider upper and lower endoscopy should the patient developed severe anemia when taking Xarelto down the road. Would suggest periodic monitoring of the patient's hematocrit given this low level of anemia present. 02/24/17--the patient's hematocrit is back up to 39%, it does not appear to be negatively impacted by the previous Xarelto use. 02/25/17--patient's hematocrit was checked yesterday at 39%. Current Visit: Yes Gastroenterology - PN: Subj Interval history: No new complaints, the patient is not disagreeing with the idea of getting the PEG tube tomorrow, appears depressed. The nurses state that the patient is eating approximately 25% of her full liquid diet. Patient is being placed for failure to thrive Exam (Progress Note) - Constitutional Vitals: Period Temp Pulse Resp BP Sys/Delgado Pulse Ox Last 24 Hr 97.1 F-98.1 F 48-69 16-20 122-132/50-84 92-96 General appearance: no acute distress - Eye Eye exam: Present: EOMI - Respiratory Respiratory exam: Present: clear to auscultation bilaterally. Absent: rhonchi, stridor, wheezes - GI/Abdominal GI/Abdominal exam: Present: normal bowel sounds, soft. Absent: distended, tenderness - Extremities Exam Extremities exam: Present: edema - Neurological Exam Neurological exam: Present: altered (Patient can answer some questions, some dementia present) - Psychiatric Psychiatric exam: Present: normal affect, normal mood - Skin Skin exam: Present: warm Results - Labs CBC & BMP: 02/24/17 06:35 02/24/17 06:35 Specialty Discharge - Follow Up or Referrals
[2017-02-25] MEDS: ATORVASTATIN 40 MG TABLET PO SCH (22:41)
[2017-02-26] MEDS: CLINDAMYCIN INJ 600 MG in PREMIX 1 EACH IV SCH ×3 (02:45→18:08)
[2017-02-26] MEDS ORDERED: PROPOFOL 200 MG/20 ML VIAL IV ONE (09:00)
[2017-02-26] MEDS ORDERED: LIDOCAINE 100 MG/5 ML SYRINGE ONE (09:00)
--- NOTE | 2017-02-26 09:00 | Operative Note ---
Date of procedure: 02/26/17 Pre-op diagnosis: Malnutrition, poor p.o. intake and failure to thrive Post-op diagnosis: other (Erosive punctate gastritis, biopsied and erosive duodenitis. 1 cm hiatal hernia incidentally noted. Successful PEG tube placement) Procedure: PROCEDURE: Esophagogastroduodenoscopy (EGD) with percutaneous endoscopic gastrostomy (PEG) tube placement with cold biopsy for pathology REFERRING PHYSICIAN: Dr. Santiago Bee MD INDICATIONS: Poor p.o. intake, failure to thrive, malnutrition, earlier anemia now resolved ENDOSCOPIST: Erik Sanchez MD ENDOSCOPE: Olympus Video 100 System upper endoscope ASA CLASS: 4 EXAM: CV: Regular rate and rhythm respiratory: Clear to ascultation abdominal: Positive bowel sounds MEDICATION: As per Anesthesia nursing protocol, see their notes PROCEDURE: After discussion of the potential risks and benefits of upper endoscopy and PEG placement, the informed consent was obtained. The patient was then placed in the left lateral decubitus position where sedation was achieved as noted above. Esophageal intubation was performed without difficulty , and the endoscope was advanced through the esophagus, stomach and duodenum. A slow withdrawal was then performed with retroflexion in the stomach for careful inspection of the incisura angularis, fundus and cardia. The scope was then returned to a neutral position and withdrawn through the esophagus. The patient tolerated the procedure well and without complication. BIOPSIES: Gastric antrum and body PHOTOGRAPHS: Obtained FINDINGS: Hypopharynx and Larynx: Normal Esohagoscopy Upper and middle thirds: Normal Lower third Normal Esophogastric junctions: No evidence of erosion, or [place]'s epithelium Gastroscopy: Cardia/Fundus: 1 cm hiatal hernia noted Body: Punctate erosive gastritis noted, biopsied Antrum and pylorus punctate erosive gastritis, biopsied Duodenoscopy: Bulb moderate erosive duodenitis Second and third portions: Normal PEG Kit/tube size: 20 Hungarian Cook PEG PEG Placement: After insufflation of the stomach with the prior procedure proper positioning was determined through transillumination and direct pressure with one to one transmission through the abdominal wall. The abdomen was sterilely prepped and draped, injected with 1% lidocaine and a 1 cm incision was cut in the external skin to accommodate the PEG tube. Using standard Ponsky "pull" technique, a catheter was inserted into the stomach (using a fluid filled syringe with back-suction to examine for interposed hollow organs) and a string was advanced into the stomach. This was snared through the scope, pulled through the mouth and tied to the PEG tube. The feeding tube was then pulled down into the stomach and out the abdominal wall, and a hub appropriately placed at the base to provide traction between internal hub and external skin. The tube was trimmed, dressed and a second look with the endoscope used to confirm position and function of the tube. The procedure was tolerated well and without complication. IMPRESSION: Erosive punctate gastritis, biopsied and erosive duodenitis. 1 cm hiatal hernia incidentally noted. Successful PEG tube placement RECOMMENDATIONS: Maintain head of bed at 30 degrees Flush the PEG tube with 30 cc of water or saline every 4 hours Obtain (if not done already) nutritional consult to determine optimal feeding rate, continuous vs. bolus, and any hydration requirements necessary. Meds may be crushed and flushed through PEG in 12 hours, followed by 10 ml of water, as per the patient's attending physcian. Feeding though the tube may start at 12 hours with an initial rate of 30 ml/ hour advancing by 10 ml's every four hours until goal rate achieved. Hold tube feeds for residuals greater than 100 ml, checked each shift. This patient needs an abdominal binder to protect the PEG tube. Erik Sanchez MD Copy to: Dr. Santiago Bee MD Anesthesia: MAC Surgeon / Physician: Erik Sanchez Estimated blood loss: minimal Specimens: other (Gastric antrum/body) Condition: stable Disposition: post procedure unit ([facility]I. Suite) Results - Labs CBC & BMP: 02/24/17 06:35 02/24/17 06:35 Discharge Plan - Discharge Medications No Action Aspirin [Ecotrin] 81 mg PO QAM HYDROcodone/ACETAMIN 5-325 [Llano 5-325] 1 tablet PO Q6H PRN #10 tablet PRN Reason: Pain amLODIPine [Norvasc] 2.5 mg PO DAILY Metoprolol Succinate 50 mg PO QAM Allopurinol [Allopurinol] 300 mg PO QAM hydroCHLOROthiazide [Hydrochlorothiazide] 12.5 mg PO QAM Cyproheptadine Tab [Periactin Tab] 4 mg PO BEDTIME - Follow Up or Referral - Forms/Instructions Instructions: Rivaroxaban (By mouth), Ischemic Stroke (DC)
--- NOTE | 2017-02-26 09:03 | Gastrointestinal Progress Note ---
Assessment and Plan (1) Dysphagia due to recent cerebral infarction Status: Acute Assessment and plan: Patient is experiencing some dysphagia at this time. She has difficulty sealing her mouth around a straw presented for speech pathology evaluation. She is not completely dysarthric, surprisingly it is difficult to gauge how soon her swallowing will resume, if at all. Unfortunately the patient is very adamant about avoiding a PEG tube and I have discussed this with the daughters who are wanting to wait until more family arrives tomorrow before discussing this further. For right now we will continue the aspirin and Lovenox regimen previously written. I have discussed the risks and benefits of the procedure with the daughter and granddaughter, Ashanti. Risk of the procedure include bleeding, infection, perforation, cardiac and pulmonary compromise as well as peritonitis from the tube itself. I can certainly provide this service at any point. There is no absolute baez to place this tomorrow, the patient may decide that she does not wish to have a feeding tube at all. 02/16/17--This patient passed her swallowing study this morning and has been approved to have nectar thickened liquids. I am going to hold off on arranging for the upper endoscopy/PEG tube is neither she nor her family is mentally prepared to accept this alternative. She may certainly improve as far as her capacity for solids in the future as time passes from the initial inciting event. I will certainly be happy to put this PEG tube in in the future should circumstances warrant this and the family agrees. Given her improvement already , I will sign off at this time. 02/24/17--Patient's family has agreed to PEG tube placement. The nurse in charge of the patient did not give the patient her Xarelto this morning and therefore we can wait 3 days before placement of PEG tube for safety sake. Because of his lapse we will be able to place the PEG tube on Wednesday, instead of waiting until Wednesday. 02/25/17--the patient's second day off of Xarelto, PEG tube replaced tomorrow morning. 02/26/17--PEG tube successfully placed, no gross evidence of stricturing, erosive gastritis noted in the stomach and erosive duodenitis. Current Visit: Yes (2) Anemia Status: Acute Assessment and plan: Patient has mild anemia. She is not to my knowledge undergone either EGD or colonoscopy. We will perform EGD as a result of PEG tube placement ultimately, should she decide to undergo evaluation. I will be able to tell whether or not there appears to be a bleeding source in the upper GI tract at the time of this endoscopy. If the patient were having bright red blood per rectum we could also consider colonoscopy down the road, as clinically appropriate. For the present time will continue observation with occasional CBCs to follow the patient's hematocrit. Thus far this is drifted down to the 35.5% range from baseline of 42.5 back on 01/24/17. 02/16/17--The patient's hematocrit is stable at 35.6%. We will hold off on any further evaluation for the present time. We can consider upper and lower endoscopy should the patient developed severe anemia when taking Xarelto down the road. Would suggest periodic monitoring of the patient's hematocrit given this low level of anemia present. 02/24/17--the patient's hematocrit is back up to 39%, it does not appear to be negatively impacted by the previous Xarelto use. 02/25/17--patient's hematocrit was checked yesterday at 39%. 02/26/17--Continue to observe patient's hematocrit, hold Xarelto for 1 more day. Current Visit: Yes (3) Gastritis and duodenitis Status: Acute Assessment and plan: Seen on endoscopy 02/26/17 biopsies taken for Helicobacter pylori. Current Visit: Yes Gastroenterology - PN: Subj Interval history: Successful PEG tube placement. Exam (Progress Note) - Constitutional Vitals: Period Temp Pulse Resp BP Sys/Delgado Pulse Ox Last 24 Hr 97.2 F-98.7 F 48-64 16-19 115-138/50-60 92-97 General appearance: no acute distress - Head Head exam: Present: normocephalic - Eye Eye exam: Present: EOMI Pupils: Present: ASCENCION - Respiratory Respiratory exam: Present: clear to auscultation bilaterally. Absent: rhonchi, stridor, wheezes - Cardiovascular Cardiovascular exam: Present: regular rate and rhythm - GI/Abdominal GI/Abdominal exam: Present: normal bowel sounds, soft. Absent: distended, tenderness, rebound - Neurological Exam Neurological exam: Present: altered (Patient's minimally verbal) - Psychiatric Psychiatric exam: Present: flat affect - Skin Skin exam: Present: warm Results - Labs CBC & BMP: 02/24/17 06:35 02/24/17 06:35 Specialty Discharge - Follow Up or Referrals
--- NOTE | 2017-02-26 09:05 | Anesthesia Post-Op ---
Anesthesia Post OP - Post Ansesthetic Evaluation Patient seen in post op: Yes Resp: within normal limits CV: within normal limits Mental: within normal limits Temp: within normal limits [id number]-[id number]: within normal limits Nausea and Vomiting: within normal limits Pain: within normal limits
[2017-02-26] MEDS: INSULIN LISPRO 100 UNIT/ML SUBCUT SCH ×4 (09:30→21:35)
[2017-02-26] MEDS: DOCUSATE SODIUM 100 MG/10 ML UDCUP PO SCH ×2 (11:09→21:24)
[2017-02-26] MEDS: metFORMIN 500 MG TABLET PO SCH ×2 (11:09→18:09)
[2017-02-26] MEDS: MAGNESIUM CHLORIDE 64 MG TABLET PO SCH ×2 (11:10→21:34)
[2017-02-26] MEDS: METOPROLOL TARTRATE 100 MG TABLET PO SCH ×2 (12:06→21:25)
[2017-02-26] MEDS: amLODIPine 10 MG TABLET PO SCH (12:06)
[2017-02-26] MEDS: ALLOPURINOL 300 MG TABLET PO SCH (12:08)
--- NOTE | 2017-02-26 14:17 | Hospitalist Progress Note ---
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 Dr. Sanchez was able to place PEG tube today. We will likely start tube feedings tomorrow. Current Visit: Yes (2) Dysphagia due to recent cerebral infarction Status: Acute Current Visit: Yes (3) Pneumonia Status: Acute Current Visit: Yes Qualifiers: Pneumonia type: aspiration pneumonia Aspiration pneumonia type: unspecified Laterality: right Lung location: lower lobe of lung Qualified Code(s): J69.0 - Pneumonitis due to inhalation of food and vomit Hospitalist: Subjective Interval history: The patient has right middle cerebral artery stroke and is very drowsy. Dr. Sanchez was able to place PEG tube today. The patient has no apparent complications and is resting quietly in bed at present. Exam - Constitutional Vitals: Period Temp Pulse Resp BP Sys/Delgado Pulse Ox Last 24 Hr 97.2 F-98.8 F 48-73 16-22 107-181/50-82 92-100 Exam: Constitutional System: Minimal distress. No tremulousness. The patient is alert but minimally interactive. She does follow conversation and nods appropriately. Head: Normocephalic, atraumatic. Ears, Nose and Throat System: No evidence of Otitis or Mastoiditis. No epistaxis or discharge Eyes System: Pupils equal, round, and reactive. Extraocular muscles intact. Neck: Supple, without adenopathy, No jugular venous distention. No thyromegaly , neck mass, or prior surgery apparent. Respiratory System: Chest upper airway congestion worse on the right Cardiovascular System: Heart with irregular rate and rhythm. No murmur. - Expanded Left Upper Extremity Neurosensory exam: Absent: 2-point discrimination (Left upper extremity flaccid ; 0/0 strength) Results - Labs CBC & BMP: 02/24/17 06:35 02/24/17 06:35 Lab Results: I have reviewed the past 24 hour labs Quality Measures - Stroke Onset of Symptoms Date: 02/14/17 Onset of Symptoms Time: 11:00 Presenting Symptoms: Left hemiparesis Specialty Discharge - Follow Up or Referrals
[2017-02-26] MEDS: ZINC OXIDE PASTE 113 GM TUBE TOP SCH ×2 (18:17→21:25)
[2017-02-26] MEDS: ATORVASTATIN 40 MG TABLET PO SCH (21:24)
[2017-02-27] MEDS: CLINDAMYCIN INJ 600 MG in PREMIX 1 EACH IV SCH ×2 (01:40→12:43)
[2017-02-27 05:17] LABS: Magnesium 2.4 MG/DL (1.8-2.4); Phosphorous 3.6 MG/DL (2.5-4.9); Prealbumin 13.7 MG/DL (20-40)
[2017-02-27] MEDS: INSULIN LISPRO 100 UNIT/ML SUBCUT SCH ×4 (08:34→23:24)
[2017-02-27] MEDS: MAGNESIUM CHLORIDE 64 MG TABLET PO SCH (08:43)
[2017-02-27] MEDS: amLODIPine 10 MG TABLET PO SCH (08:43)
[2017-02-27] MEDS: ALLOPURINOL 300 MG TABLET PO SCH (08:43)
[2017-02-27] MEDS: metFORMIN 500 MG TABLET PO SCH ×2 (08:45→17:48)
[2017-02-27] MEDS: METOPROLOL TARTRATE 100 MG TABLET PO SCH ×2 (08:46→23:23)
[2017-02-27] MEDS: DOCUSATE SODIUM 100 MG/10 ML UDCUP PO SCH ×2 (08:46→23:24)
[2017-02-27] MEDS: ZINC OXIDE PASTE 113 GM TUBE TOP SCH ×2 (11:10→23:29)
--- NOTE | 2017-02-27 14:11 | Hospitalist Progress Note ---
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 Dr. Sanchez was able to place PEG tube yesterday. Tube feedings have started. Will recheck electrolytes tomorrow morning. Current Visit: Yes (2) Dysphagia due to recent cerebral infarction Status: Acute Current Visit: Yes (3) Pneumonia Status: Acute Current Visit: Yes Qualifiers: Pneumonia type: aspiration pneumonia Aspiration pneumonia type: unspecified Laterality: right Lung location: lower lobe of lung Qualified Code(s): J69.0 - Pneumonitis due to inhalation of food and vomit Hospitalist: Subjective Interval history: Mrs. yang now has a PEG tube in place and is tolerating tube feedings at beginning rate. Exam - Constitutional Vitals: Period Temp Pulse Resp BP Sys/Delgado Pulse Ox Last 24 Hr 97.8 F-99.5 F 53-76 16-19 121-153/60-79 92-99 Exam: Constitutional System: Minimal distress. No tremulousness. The patient is alert but minimally interactive. She does follow conversation and nods appropriately. Head: Normocephalic, atraumatic. Ears, Nose and Throat System: No evidence of Otitis or Mastoiditis. No epistaxis or discharge Eyes System: Pupils equal, round, and reactive. Extraocular muscles intact. Neck: Supple, without adenopathy, No jugular venous distention. No thyromegaly , neck mass, or prior surgery apparent. Respiratory System: Chest upper airway congestion worse on the right Cardiovascular System: Heart with irregular rate and rhythm. No murmur. - Expanded Left Upper Extremity Neurosensory exam: Absent: 2-point discrimination (Left upper extremity flaccid ; 0/0 strength) Results - Labs CBC & BMP: 02/24/17 06:35 02/24/17 06:35 Lab Results: I have reviewed the past 24 hour labs Quality Measures - Stroke Onset of Symptoms Date: 02/14/17 Onset of Symptoms Time: 11:00 Presenting Symptoms: Left hemiparesis Specialty Discharge - Follow Up or Referrals
--- NOTE | 2017-02-27 14:36 | Gastrointestinal Progress Note ---
Assessment and Plan - Time spent with patient Time spent with patient: Greater than 30 minutes (1) Unable to eat solid foods Status: Acute Current Visit: Yes (2) Anemia Status: Acute Current Visit: Yes (3) Gastritis and duodenitis Status: Acute Current Visit: Yes (4) Other specified counseling Status: Acute Current Visit: Yes Exam (Progress Note) - Constitutional Vitals: Period Temp Pulse Resp BP Sys/Delgado Pulse Ox Last 24 Hr 97.8 F-99.5 F 53-76 16-19 121-153/60-79 92-99 Results - Labs CBC & BMP: 02/24/17 06:35 02/24/17 06:35 Specialty Discharge - Follow Up or Referrals Note Addendum: PLEASE NOTE -- automatic citation of patient information is unavoidable in this electronic note. I have made a reasonable effort to review the information cited , but it is not a part of my evaluation, impression, or recommendation unless specifically discussed in the dictated text that follows. As well, voice recognition software was used in the creation of this clinical note. Reasonable effort was made to identify and correct gross errors. Despite proofreading, errors in agricultural economist may be present, including nonsense verbiage at times. If you encounter such an error, please contact me at [phone] for discussion and correction. -- Kyle Chief complaint: recent PEG placement Subjective: the patient is an 89-year-old female seen for follow-up of PEG placement. No complications are reported by the staff and the PEG is currently in use. The patient is accompanied by family member who reports that she has been doing fine and has not complained of any discomfort. The patient has suffered a cerebrovascular accident and is unable to provide much in the way of medical history at present. Medications: allopurinol 300 mg daily, Norvasc 10 mg daily, Lipitor 40 mg daily , clindamycin takes other milligrams every eight hours, Colace 100 mg twice daily, hydralazine 100 mg twice daily, [place]'s 5/325 mg every six hours as needed, insulin as directed, magnesium chloride 64 mg twice daily, Metformin 5 mg twice daily, Lopressor 100 mg twice daily Review of Symptoms: unable to provide lying in bed. Sleeping. Physical examination: Vital Signs: Current vital signs reviewed. General Appearance: lying in bed. Comfortable. Head: Normocephalic. Eyes: no scleral icterus. No scleral injection. No conjunctival pallor. Oral Cavity: Odor of breath was normal. No drooling was observed. Lips showed no abnormalities. Lungs: Respiration rhythm and depth was normal. Cardiovascular: Heart rate and rhythm were normal. Abdomen: abdomen was not distended. Abdominal auscultation revealed no abnormalities. Ascites was not discovered. Abdominal palpation revealed no tenderness and no hepatosplenomegaly. PEG site was clean, dry, and intact with absorbent dressing in place. There was adequate rotational freedom and adequate axial play. Musculoskeletal System: musculoskeletal system was grossly normal. Neurological: patient was sleeping at the time of our exam. Skin: Gen. appearance was normal. Color and pigmentation were normal. No skin lesions were appreciated. Laboratory: no new laboratories today Radiology: reviewed with no pertinent changes noted. Impressions: #1. Unable to take oral nutrition -- PEG tube is intact and functional. I recommend continued use for nutrition supplementation and medication as indicated. Please ensure that the ostomy site is inspected every shift. Please ensure that dressings are OUTSIDE the external bumper rather than between the bumper and skin. #2. Anemia -- blood counts are stable with no overt blood loss. I recommend continued monitoring for now. #3. Gastritis and duodenitis -- I recommend continued proton pump inhibitor as prescribed both now and after discharge. #4. Other specified counseling -- Patient seen for greater than 30 minutes. Greater than 50% of this time was spent counseling regarding differential diagnosis, likely diagnosis,, diagnostic and therapeutic options, risks, benefits, and alternatives to procedures and medications, informed consent, and plan of care generally. Patient has expressed understanding and wishes to proceed. Recommendations: -- okay to use PEG tube for nutritional supplementation, hydration, and medications as indicated -- please monitor ostomy site every shift and maintain dressings OUTSIDE the external tube bumper -- continue proton pump inhibitor both now and after discharge -- monitor blood counts and monitor clinically for overt gastrointestinal blood loss -- follow-up result of pathology when available -- we will continue to follow with you
[2017-02-27] MEDS: CLINDAMYCIN 300 MG CAPSULE PEG SCH (23:23)
[2017-02-27] MEDS: ATORVASTATIN 40 MG TABLET PO SCH (23:24)
[2017-02-28 03:08] LABS: Basophils # 0.1 10*3/uL (0.0-0.2); Basophils % 0.2 % (0.0-0.8); Eosinophils % 0.1 % (0.00-10.9); Hematocrit 34.6 VOL% (35.7-47.0); Hemoglobin 11.9 GM/DL (12.0-16.0); Immature Granulocytes % 1.3 %; Immature Granulocytes Absolute 0.45 #; Lymphocytes % 5.7 % (21.3-54.2); Mean Corpuscular HGB Conc 34.4 GM/DL (32-36); Mean Corpuscular Hemoglobin 24 PG (27-34); Mean Corpuscular Volume 68.9 FL (87-102); Mean Platelet Volume 11.2 FL (9.6-12.0); Monocytes # 1.9 10*3/uL (0.11-0.8); Monocytes % 5.4 % (1.7-12.7); Neutrophils # 30.5 10*3/uL (1.4-7.4); Neutrophils % 87.3 % (38.7-73.9); Platelet Count 319 T/CUMM (130-400); Red Blood Count 5.02 MC/CUMM (3.8-5.5); Red Cell Distribution Width 15.8 % (9.3-17.3); White Blood Count 34.9 T/CUMM (4-12)
[2017-02-28 03:35] LABS: Calcium 10.3 MG/DL (8.5-10.1); Magnesium 2.6 MG/DL (1.8-2.4); Osmolality,Calculated 295.1 MOS/KG (273-304); Potassium 4.3 MMOL/L (3.5-5.1)
[2017-02-28] MEDS: MAGNESIUM CHLORIDE 64 MG TABLET PO SCH ×3 (04:01→21:35)
[2017-02-28 05:29] LABS: Eosinophils 1 % (0-10); Hypochromasia 1+; Lymphocytes 4 % (20-55); Microcytosis 1+; Segmented Neutrophils 91 % (50-85); Target Cells Slight; Total Cells Counted 100
[2017-02-28 05:30] LABS: Platelet Estimate Normal
[2017-02-28] MEDS: CLINDAMYCIN 300 MG CAPSULE PEG SCH ×3 (05:30→21:33)
[2017-02-28] MEDS: amLODIPine 10 MG TABLET PO SCH (11:05)
[2017-02-28] MEDS: ALLOPURINOL 300 MG TABLET PO SCH (11:06)
[2017-02-28] MEDS: metFORMIN 500 MG TABLET PO SCH ×2 (11:06→19:35)
[2017-02-28] MEDS: DOCUSATE SODIUM 100 MG/10 ML UDCUP PO SCH ×2 (11:06→21:34)
[2017-02-28] MEDS: INSULIN LISPRO 100 UNIT/ML SUBCUT SCH ×4 (11:08→21:33)
[2017-02-28] MEDS: METOPROLOL TARTRATE 100 MG TABLET PO SCH ×2 (11:20→21:39)
--- NOTE | 2017-02-28 13:13 | Hospitalist Progress Note ---
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 PEG tube was placed. Anticipate transfer to snf tomorrow. White blood cell count is elevated and will be rechecked tomorrow. Chest x-ray reveals no infiltrate. Current Visit: Yes (2) Dysphagia due to recent cerebral infarction Status: Acute Current Visit: Yes (3) Pneumonia Status: Acute Current Visit: Yes Qualifiers: Pneumonia type: aspiration pneumonia Aspiration pneumonia type: unspecified Laterality: right Lung location: lower lobe of lung Qualified Code(s): J69.0 - Pneumonitis due to inhalation of food and vomit Hospitalist: Subjective Interval history: Mrs. yang was admitted to the hospital with stroke. She has left-sided neglect and head turning to the right. PEG tube was placed due to her inability to maintain hydration and nutrition. The patient is tolerating tube feedings through the PEG. Exam - Constitutional Vitals: Period Temp Pulse Resp BP Sys/Delgado Pulse Ox Last 24 Hr 98.1 F-99.9 F 65-105 16-30 129-162/56-83 95-100 Exam: Constitutional System: Minimal distress. No tremulousness. The patient is alert but minimally interactive. She does follow conversation and nods appropriately. Head: Normocephalic, atraumatic. Ears, Nose and Throat System: No evidence of Otitis or Mastoiditis. No epistaxis or discharge Eyes System: Pupils equal, round, and reactive. Extraocular muscles intact. Neck: Supple, without adenopathy, No jugular venous distention. No thyromegaly , neck mass, or prior surgery apparent. Respiratory System: Chest upper airway congestion worse on the right Cardiovascular System: Heart with irregular rate and rhythm. No murmur. - Expanded Left Upper Extremity Neurosensory exam: Absent: 2-point discrimination (Left upper extremity flaccid ; 0/0 strength) Results - Labs CBC & BMP: 02/28/17 02:50 02/28/17 02:50 Lab Results: I have reviewed the past 24 hour labs Quality Measures - Stroke Onset of Symptoms Date: 02/14/17 Onset of Symptoms Time: 11:00 Presenting Symptoms: Left hemiparesis Specialty Discharge - Follow Up or Referrals
--- NOTE | 2017-02-28 16:14 | XRay Report ---
Portable chest Indication: Shortness of breath, cough Comparison: February 17, 2017 Findings: Cardiomediastinal contours are stable. Stable chronic interstitial changes within the lung bases. Low lung volumes. No acute osseous abnormalities. Visualized upper abdomen demonstrates no acute pathology. Impression: No acute cardiopulmonary findings PROCEDURE INTERPRETED AT [facility] DEPARTMENT OF RADIOLOGY Final Report Signed by: Xenia Angeles MD
[2017-02-28] MEDS: ZINC OXIDE PASTE 113 GM TUBE TOP SCH (19:35)
[2017-02-28] MEDS: ATORVASTATIN 40 MG TABLET PO SCH (21:34)
[2017-03-01 05:06] LABS: Basophils # 0.1 10*3/uL (0.0-0.2); Basophils % 0.3 % (0.0-0.8); Eosinophils # 0.3 10*3/uL (0.0-0.87); Eosinophils % 0.9 % (0.00-10.9); Hematocrit 34.4 VOL% (35.7-47.0); Hemoglobin 11.5 GM/DL (12.0-16.0); Immature Granulocytes % 1.2 %; Immature Granulocytes Absolute 0.37 #; Lymphocytes # 3.6 10*3/uL (1.4-4.0); Lymphocytes % 11.6 % (21.3-54.2); Mean Corpuscular HGB Conc 33.4 GM/DL (32-36); Mean Corpuscular Hemoglobin 23 PG (27-34); Mean Corpuscular Volume 69.4 FL (87-102); Mean Platelet Volume 11.8 FL (9.6-12.0); Monocytes # 1.7 10*3/uL (0.11-0.8); Monocytes % 5.6 % (1.7-12.7); Neutrophils # 24.5 10*3/uL (1.4-7.4); Neutrophils % 80.4 % (38.7-73.9); Platelet Count 277 T/CUMM (130-400); Red Blood Count 4.96 MC/CUMM (3.8-5.5); Red Cell Distribution Width 15.9 % (9.3-17.3); White Blood Count 30.5 T/CUMM (4-12)
[2017-03-01 05:35] LABS: Calcium 10.2 MG/DL (8.5-10.1); Magnesium 2.9 MG/DL (1.8-2.4); Osmolality,Calculated 294.3 MOS/KG (273-304); Potassium 4.6 MMOL/L (3.5-5.1)
[2017-03-01 05:36] LABS: Eosinophils 2 % (0-10); Giant Platelets Few; Hypochromasia 1+; Lymphocytes 13 % (20-55); Microcytosis Slight; Ovalocytes Slight; Platelet Estimate Adequate; Segmented Neutrophils 81 % (50-85); Total Cells Counted 100
[2017-03-01] MEDS: CLINDAMYCIN 300 MG CAPSULE PEG SCH (06:14)
[2017-03-01] MEDS: ZINC OXIDE PASTE 113 GM TUBE TOP SCH ×3 (06:25→20:55)
[2017-03-01] MEDS: INSULIN LISPRO 100 UNIT/ML SUBCUT SCH ×4 (07:59→20:55)
[2017-03-01] MEDS: MAGNESIUM CHLORIDE 64 MG TABLET PO SCH ×2 (08:04→20:56)
[2017-03-01] MEDS: metFORMIN 500 MG TABLET PO SCH ×2 (09:44→17:16)
[2017-03-01] MEDS: amLODIPine 10 MG TABLET PO SCH (09:44)
[2017-03-01] MEDS: DOCUSATE SODIUM 100 MG/10 ML UDCUP PO SCH ×2 (09:44→20:55)
[2017-03-01] MEDS: ALLOPURINOL 300 MG TABLET PO SCH (09:44)
[2017-03-01] MEDS: METOPROLOL TARTRATE 100 MG TABLET PO SCH ×2 (09:44→20:56)
--- NOTE | 2017-03-01 11:20 | Pathology Report from [facility] ---
[facility] ACCESSION # : [id number] PATIENT NAME : Jyoti Tay ORDERING DR : Erik Sanchez MD CLINICAL HX: Malnutrition POST-OP DX: Gastritis SPECIMEN INFO: MARITZA GROSS DESCRIPTION: The specimen is received in formalin labeled with the patients name and consists of a 0.5 x 0.3 cm aggregate of vallejo tissue. Submitted in one cassette. DIAGNOSIS FOR JYOTI TAY: GASTRIC BIOPSIES: Chronic antral gastritis, active with focal intestinal metaplasia. H. pylori are present. COLLECTED DATE: 02/26/2017 [facility] REPORT DATE: 03/01/2017 ELECTRONICALLY SIGNED BY: Claudio Baxter M.D. 03/01/2017 - 10:05:17 [email or web address]
--- NOTE | 2017-03-01 12:05 | Cardiology Progress Note ---
I, Tri Taylor RN, am scribing for, and in the presence of, Acosta Mendez MD 12:04. Assessment and Plan (1) Elevated troponin Status: Acute Assessment and plan: Initial assessment and plan March 01, 2017: The patient does have an elevated troponin, but she is not having chest pain or shortness of breath. In fact, she is not interactive. She does have known coronary disease, so this could be an ischemic event. There were no EKG changes of ST elevation I discussed the situation with her daughter. I recommend a non-invasive, medical therapy approach. Given she is DNR, has had a large stroke, not interactive, and her age, it is thought that a conservative, non-cath approach would be best. She agrees. She has been off Xarelto for several days and not on aspirin. If you believe she is okay with taking aspirin 81 mg daily, you could restart it. If you believe is too risky, related to the stroke yes Dr. mendez, you can leave it off. Otherwise, believe she is on a beta-zena. Her prognosis is guarded From my standpoint, she may go back to [facility]. Thank you for allowing me to participate in this patient's care Current Visit: Yes (2) Hypertension Status: Chronic Current Visit: Yes (3) Acute CVA (cerebrovascular accident) Status: Acute Current Visit: Yes (4) Atrial fibrillation Status: Chronic Current Visit: Yes Qualifiers: Atrial fibrillation type: unspecified Qualified Code(s): I48.91 - Unspecified atrial fibrillation (5) Dysphagia due to recent cerebral infarction Status: Acute Current Visit: Yes (6) Diabetes Status: Chronic Current Visit: Yes Cardiology - PN: Subj Interval history: Primary clod puller: Dr. Feliz Cade. Summary: Ms. Murray is a 89 year old female who is been followed by Dr. Feliz Cade previously having had coronary artery disease as well as dyslipidemia and hypertension. She has a history of palpitations based on his records. His prior ECGs revealed sinus rhythm with first-degree AV block and delayed anterior R-wave progression. She was last seen by him in November of this year. Prior evaluation with echocardiogram May 2015 revealed ejection fraction 65+ % with aortic valve sclerosing and otherwise unremarkable any cardiac perfusion study at the same time with normal cardiac perfusion and ejection fraction greater than 70%. No wall motion normality's were noted. Patient was admitted because of deterioration after having what appeared to be a stroke. Neurology's note the patient had right MCA stroke. 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 She has had atrial fibrillation with variable ventricular response. She was initially started on Xarelto, this has been on hold since February 24. He underwent PEG tube placement on February 26. March 01, 2017: Cardiology was reconsulted because of elevated troponin yesterday, it was 1.970 and 2.500. EKG was without any acute changes. Given her condition, it would be best to treat her medically. This was discussed with her daughter who is at bedside. Would consider adding aspirin if okay with neurology and hospitalist services. Troponin this morning is down to 2.20 with negative CK and CK-MB. Exam (Progress Note) - Constitutional Vitals: Period Temp Pulse Resp BP Sys/Delgado Pulse Ox Last 24 Hr 97.7 F-99.8 F 71-105 18-30 102-135/55-81 94-100 Exam: General: Appears comfortable. No apparent distress. Lethargic. HEENT: PERRL, normocephalic, atraumatic. Mucous membranes moist. No jaundice noted. Conjunctiva moist and clear, sclerae anicteric Neck: No JVD/HJR, no thyromegaly or lymphadenopathy noted. Cardiac: Irregular with controlled rate. No murmur rub or gallop. Lungs: Clear to auscultation without accessory muscle use to assist the respiratory pattern. Requiring oxygen via nasal cannula. Abdomen: Soft, bowel sounds normoactive. Nontender and nondistended. No abdominal bruit or thrill noted. No masses noted. PEG tube noted. Extremities: No clubbing, cyanosis noted. No edema. Upper extremity pulses 2+ . Lower extremity pulses 1+. Capillary refill less than 3 seconds. Skin: No unusual lesions or rashes. No skin breakdown appreciated. Neuro: Awake, does not respond and will not verbally communicate. Result/EKG - Labs CBC & BMP: 03/01/17 03:54 03/01/17 03:54 Lab Results: I have reviewed the past 24 hour labs Labs: Laboratory Results - last 24 hr 02/28/17 02/28/17 02/28/17 11:50 16:24 19:53 WBC RBC Hgb Hct MCV MCH MCHC RDW Plt Count MPV Neut % (Auto) Lymph % (Auto) [place] % (Auto) Eos % (Auto) Baso % (Auto) Neut # (Auto) Lymph # (Auto) [place] # (Auto) Eos # (Auto) Baso # (Auto) Total Counted Immature Gran % Nucleated RBC % Immature Gran # Segmented Neutrophils Lymphocytes Monocytes Eosinophils Nucleated RBCs # Platelet Estimate Giant Platelets Immature Plt Fraction Hypochromasia Microcytosis Ovalocytes Sodium Potassium Chloride Carbon Dioxide Anion Gap BUN Creatinine GFR Calculation BUN/Creatinine Ratio Glucose POC Glucose 156 H 119 H Calculated Osmolality Calcium Magnesium Troponin I 1.970 H 02/28/17 02/28/17 03/01/17 20:12 23:35 03:54 WBC 30.5 H RBC 4.96 Hgb 11.5 L Hct 34.4 L MCV 69.4 L MCH 23 L MCHC 33.4 RDW 15.9 Plt Count 277 MPV 11.8 Neut % (Auto) 80.4 H Lymph % (Auto) 11.6 L [place] % (Auto) 5.6 Eos % (Auto) 0.9 Baso % (Auto) 0.3 Neut # (Auto) 24.5 H Lymph # (Auto) 3.6 [place] # (Auto) 1.7 H Eos # (Auto) 0.3 Baso # (Auto) 0.1 Total Counted 100 Immature Gran % 1.2 Nucleated RBC % 0.0 Immature Gran # 0.37 Segmented Neutrophils 81 Lymphocytes 13 L Monocytes 4 Eosinophils 2 Nucleated RBCs # 0.00 Platelet Estimate Adequate Giant Platelets Few Immature Plt Fraction 0.0 Hypochromasia 1+ Microcytosis Slight Ovalocytes Slight Sodium Potassium Chloride Carbon Dioxide Anion Gap BUN Creatinine GFR Calculation BUN/Creatinine Ratio Glucose POC Glucose 136 H Calculated Osmolality Calcium Magnesium Troponin I 2.500 H D 03/01/17 03/01/17 03:54 06:50 WBC RBC Hgb Hct MCV MCH MCHC RDW Plt Count MPV Neut % (Auto) Lymph % (Auto) [place] % (Auto) Eos % (Auto) Baso % (Auto) Neut # (Auto) Lymph # (Auto) [place] # (Auto) Eos # (Auto) Baso # (Auto) Total Counted Immature Gran % Nucleated RBC % Immature Gran # Segmented Neutrophils Lymphocytes Monocytes Eosinophils Nucleated RBCs # Platelet Estimate Giant Platelets Immature Plt Fraction Hypochromasia Microcytosis Ovalocytes Sodium 141 Potassium 4.6 Chloride 107 Carbon Dioxide 24 Anion Gap 14.6 BUN 51 H Creatinine 1.50 H GFR Calculation 36 BUN/Creatinine Ratio 34.00 H Glucose 107 H POC Glucose 136 H Calculated Osmolality 294.3 Calcium 10.2 H Magnesium 2.9 H Troponin I - EKG EKG results: interpreted by me EKG shows: atrial fibrillation Quality Measures - Stroke Onset of Symptoms Date: 02/14/17 Onset of Symptoms Time: 11:00 Presenting Symptoms: Left hemiparesis Specialty Discharge - Follow Up or Referrals Vanessa Brown Dale, MD, personally performed the services described in this documentation, ascribed by Tri Taylor RN in my presence, and it is both accurate and complete .
--- NOTE | 2017-03-01 12:28 | Infectious Disease Consult ---
Assessment and Plan (1) Leukocytosis Status: Acute Assessment and plan: Patient has significant leukocytosis but no obvious focus of infection. She has been afebrile and completely hemodynamically stable. She is dysphagic and at increased risk for aspiration however she has no respiratory distress and a chest x-ray yesterday was normal so I doubt pneumonia. Recommendations: 1. Blood cultures 2 sets start 2. Urinalysis with reflex to culture 3. I am going to stop the clindamycin as I do not see a strong indication for it, and it will increase her risk for C. difficile infection which would be devastating for this patient 4. Monitor the white blood cell count off antibiotics for now. Only if patient becomes hemodynamically unstable or spikes fever I would start empiric antibiotic therapy, which would comprise of vancomycin and Zosyn. Thank you very much for the consult. Will follow. Discussed with Dr. Melgar Discussed with patient's daughter at bedside Current Visit: Yes (2) Acute CVA (cerebrovascular accident) Status: Acute Current Visit: Yes (3) Atrial fibrillation Status: Chronic Current Visit: Yes Qualifiers: Atrial fibrillation type: unspecified Qualified Code(s): I48.91 - Unspecified atrial fibrillation (4) Diabetes Status: Chronic Current Visit: Yes (5) Hypertension Status: Chronic Current Visit: Yes History of Present Illness Chief complaint: Leukocytosis History of present illness: Ms. Murray is a 89 year old female admitted 2 weeks ago with a stroke. Since date of admission she has had persisting leukocytosis of around 15. However 5 days ago jumped from 15-35 and then between yesterday and today went down to 30. The patient has not had any fever at all. She has not appeared to be in any respiratory distress according to her daughter who has been with her most of the time, and she does not really have a cough. Patient also without diarrhea and she has not had a Mckeon catheter. She was started on clindamycin yesterday due to concerns for aspiration pneumonia. I am asked to assist with management. Home Medications Medication Instructions Recorded Confirmed Type Aspirin [Ecotrin] 81 mg PO QAM 01/24/17 02/14/17 History HYDROcodone/ACETAMIN 5-325 [Citronelle 1 tablet PO Q6H PRN #10 tablet 01/24/17 Rx 5-325] Allopurinol [Allopurinol] 300 mg PO QAM 02/14/17 02/14/17 History Cyproheptadine Tab [Periactin Tab] 4 mg PO BEDTIME 02/14/17 02/14/17 History Metoprolol Succinate 50 mg PO QA 02/14/17 02/14/17 History amLODIPine [Norvasc] 2.5 mg PO DAILY 02/14/17 02/14/17 History hydroCHLOROthiazide 12.5 mg PO QAM 02/14/17 02/14/17 History [Hydrochlorothiazide] Allergies Allergy/AdvReac Type Severity Reaction Status Date / Time TEE Inhibitors Allergy ANAPHYLAXIS Verified 02/14/17 12:55 benazepril Allergy ANAPHYLAXIS Verified 02/14/17 12:55 ROS unobtainable: due to mental status Medical,Surgical,& Family Hx - Medical History Cardio: History of: Cardiac Dysrhythmia (She has had palpitations before but nothing documented specifically), CAD, Hypertension, Cardiovascular Problems No history of: Aneurysm, Cerebrovascular Disease, Congenital Heart Disease, CHF, CA, Pacemaker, PVD, Valvular Heart Disease Psychological: No history of: Anxiety Disorders, ADHD, Behavior Problems, Bipolar Disorder, Depression, Previous Suicide Attempt, Psychiatric/Substance Abuse Tx, Schizophrenia, Violent Behavior, Psychiatric Problems Neurology: No history of: Brain Aneurysm, Cerebral Hemorrhage, Cerebrovascular Accident , Cerebral Palsy, Dementia, Migraine, Multiple Sclerosis, Parkinson's Disease, Peripheral Neuropathy, Seizures, TIA, Vertigo, Neurologocal Cancer HEENT: No history of: Ear Problem, Eye Problem, Dental Problems, Glaucoma, Oral Cancer, HEENT Problems Endocrine: No history of: Adrenal Disease, Diabetes Mellitus (IDDM), Diabetes Mellitus ( NIDDM), Dyslipidemia, Thyroid Disorder, Endocrine Cancer, Endocrine Problems Rheumatology: History of;: Gout No history of;: Fibromyalgia, Myasthenia Gravis, Psoriasis, Rheumatoid Arthritis, Sjogrens, Systemic Lupus Erythematosus, Rheumatological Problems Respiratory: No history of: Asthma, Bronchitis, COPD, Intubation, Obstructive Sleep Apnea , Pulmonary Embolism, Pulmonary Hypertension, Pneumonia, Lung Cancer, Respiratory Problems Renal: No history of: Renal (Kidney) Cancer, Dialysis, Renal Failure, Renal Problems Genitourinary: No history of: Bladder Problem, Kidney Stones, Recurring Urinary Tract Infections, Genitourinary Cancer, Problems Gastrointestinal: No history of: Bowel Obstruction, Clostridium Difficile, Crohn's Disease, Diverticulitis/ Diverticulosis, Esophageal Varices, GERD, Gastrointestinal Bleed , Hemorrhoids, Hematochezia, Hepatitis, Liver Problems, Pancreatitis, Polyps, Ulcerative Colitis, Gastrointestinal Cancer, GI Problems Musculoskeletal: No history of: Amputation, Back/Neck Problems, Degenerative Disk Disease, Herniated Disk, Osteoporosis, Musculoskeletal Cancer, Musculoskeletal Problems Hematology: No history of: Anemia, Blood Transfusion Reaction, Bleeding Problems, Clotting Problems, Sickle Cell Disease, Hematologic Cancer, Blood Disorders Reproductive: No history of: Abnormal Pap Smear, Breast Cancer, Endometriosis, Ectopic , Ovarian Cysts, Complication, Sexually Transmitted Disorders , Reproductive Cancer, Reproductive Problems Other: No history of: Anesthesia Reactions, Anaphylaxis, Cancer, Eczema, HIV, Malignant Hyperthermia, MRSA, Vancomycin-Resistant Enterococci, Skin Problems, Miscellaneous Medical Problems - Surgical History Cardiac Surgeries: Patient Denies: Femoral-Popliteal Bypass Graft, Cardiac Catheterization, Cardiac Surgery, Carotid Endarterectomy, Internal Defibrillator, Vascular Access Devices Thoracic Surgeries: Patient denies;: Kidney (Renal Surgery), Lithotripsy, Nephrectomy, Organ Transplant, Lobectomy Neurologic Surgeries: Patient denies: Brain Aneurysm, Cerebral Hemorrhage, Neurologic Surgery HEENT Surgeries: Patient denies: Carotid Endarterectomy, Eye Surgery, Thyroid Surgery, Tonsilectomy & Adenoidectomy Abdominal Surgeries: Patient denies: Abdominal Surgery, Appendectomy, Cholecystectomy, Colonoscopy , Gastric Bypass Surgery, EGD, Hernia Repair, Splenectomy Reproductive Surgeries: Patient denies;: Breast Surgery, Section, Cystoscopy, Dilation and Curettage, Genitourinary Surgery, Gynecologic Surgery, Hysterectomy, Tubal Ligation Orthopedic Surgeries: Patient denies;: Implanted Devices, Orthopedic Surgery, Spinal Surgery, Total Hip Replacement, Total Knee Replacement - Family History Family History: Reports;: Family Diabetes, Family Heart Disease, Family Stroke Denies;: Family Anesthesia Reaction, Family Cancer, Family Hematology, Family Hypertension, Family Psychiatric Problems, Additional Family History - Social History Smoking Status: Never smoker Frequency of Alcohol Use: None Type of Drug Use: None Infectious Disease Exam H&P - Constitutional Vitals: Vital Signs Temp Pulse Resp BP Pulse Ox 98.5 F 52 L 18 134/65 92 L 03/01/17 10:44 03/01/17 10:44 03/01/17 10:44 03/01/17 10:44 03/01/17 10:44 Intake and Output 02/28/17 03/01/17 03/01/17 23:59 07:59 15:59 Intake Total 230 / 230 Output Total 400 / 400 Balance -170 / -170 Intake: Tube Feeding Flush 230 / 230 Output: Urine 400 / 400 Other: Tube Feeding 660 Voiding Method Brief # Voids 1 Weight 74.48 kg Patient Weight 03/01/17 23:59 Weight 74.48 kg Exam: General: Patient appeared relatively comfortable, not very conversant but she would open her eyes and try to follow simple commands HEENT: Mucous membranes pink and moist, anicteric acyanotic, would not keep her eyes open for me to inspect them, would not open her mouth wide enough for me to inspect Neck: Supple, no thyroid gland enlargement, no lymphadenopathy Respiratory system: Breath sounds vesicular, no crepitations or wheezes Cardiovascular: Normal S1 and S2, no murmurs appreciated Abdomen: Normal bowel sounds, soft nontender throughout, no organomegaly or mass Genitourinary: No suprapubic pain or bladder distention Extremities: no edema Skin: No rash Reports - Labs CBC & BMP: 03/01/17 03:54 03/01/17 03:54 Labs: Laboratory Results - last 24 hr 02/28/17 02/28/17 02/28/17 16:24 19:53 20:12 WBC RBC Hgb Hct MCV MCH MCHC RDW Plt Count MPV Neut % (Auto) Lymph % (Auto) [place] % (Auto) Eos % (Auto) Baso % (Auto) Neut # (Auto) Lymph # (Auto) [place] # (Auto) Eos # (Auto) Baso # (Auto) Total Counted Immature Gran % Nucleated RBC % Immature Gran # Segmented Neutrophils Lymphocytes Monocytes Eosinophils Nucleated RBCs # Platelet Estimate Giant Platelets Immature Plt Fraction Hypochromasia Microcytosis Ovalocytes Sodium Potassium Chloride Carbon Dioxide Anion Gap BUN Creatinine GFR Calculation BUN/Creatinine Ratio Glucose POC Glucose 119 H 136 H Calculated Osmolality Calcium Magnesium Total Creatine Kinase CK-MB (CK-2) Troponin I 1.970 H 02/28/17 03/01/17 03/01/17 23:35 03:54 03:54 WBC 30.5 H RBC 4.96 Hgb 11.5 L Hct 34.4 L MCV 69.4 L MCH 23 L MCHC 33.4 RDW 15.9 Plt Count 277 MPV 11.8 Neut % (Auto) 80.4 H Lymph % (Auto) 11.6 L [place] % (Auto) 5.6 Eos % (Auto) 0.9 Baso % (Auto) 0.3 Neut # (Auto) 24.5 H Lymph # (Auto) 3.6 [place] # (Auto) 1.7 H Eos # (Auto) 0.3 Baso # (Auto) 0.1 Total Counted 100 Immature Gran % 1.2 Nucleated RBC % 0.0 Immature Gran # 0.37 Segmented Neutrophils 81 Lymphocytes 13 L Monocytes 4 Eosinophils 2 Nucleated RBCs # 0.00 Platelet Estimate Adequate Giant Platelets Few Immature Plt Fraction 0.0 Hypochromasia 1+ Microcytosis Slight Ovalocytes Slight Sodium 141 Potassium 4.6 Chloride 107 Carbon Dioxide 24 Anion Gap 14.6 BUN 51 H Creatinine 1.50 H GFR Calculation 36 BUN/Creatinine Ratio 34.00 H Glucose 107 H POC Glucose Calculated Osmolality 294.3 Calcium 10.2 H Magnesium 2.9 H Total Creatine Kinase CK-MB (CK-2) Troponin I 2.500 H D 03/01/17 03/01/17 03/01/17 06:50 08:52 10:45 WBC RBC Hgb Hct MCV MCH MCHC RDW Plt Count MPV Neut % (Auto) Lymph % (Auto) [place] % (Auto) Eos % (Auto) Baso % (Auto) Neut # (Auto) Lymph # (Auto) [place] # (Auto) Eos # (Auto) Baso # (Auto) Total Counted Immature Gran % Nucleated RBC % Immature Gran # Segmented Neutrophils Lymphocytes Monocytes Eosinophils Nucleated RBCs # Platelet Estimate Giant Platelets Immature Plt Fraction Hypochromasia Microcytosis Ovalocytes Sodium Potassium Chloride Carbon Dioxide Anion Gap BUN Creatinine GFR Calculation BUN/Creatinine Ratio Glucose POC Glucose 136 H 120 H Calculated Osmolality Calcium Magnesium Total Creatine Kinase 87 CK-MB (CK-2) 2.9 Troponin I 2.200 H - Diagnostic Findings Procedure: Chest x-ray: image reviewed by me, report reviewed by me (No acute pathology) Specialty Discharge - Follow Up or Referrals
--- NOTE | 2017-03-01 13:59 | Order Completion Report ---
See report scanned to EMR
--- NOTE | 2017-03-01 14:01 | Gastrointestinal Progress Note ---
Assessment and Plan (1) Dysphagia due to recent cerebral infarction Status: Acute Assessment and plan: Patient is experiencing some dysphagia at this time. She has difficulty sealing her mouth around a straw presented for speech pathology evaluation. She is not completely dysarthric, surprisingly it is difficult to gauge how soon her swallowing will resume, if at all. Unfortunately the patient is very adamant about avoiding a PEG tube and I have discussed this with the daughters who are wanting to wait until more family arrives tomorrow before discussing this further. For right now we will continue the aspirin and Lovenox regimen previously written. I have discussed the risks and benefits of the procedure with the daughter and granddaughter, Ashanti. Risk of the procedure include bleeding, infection, perforation, cardiac and pulmonary compromise as well as peritonitis from the tube itself. I can certainly provide this service at any point. There is no absolute baez to place this tomorrow, the patient may decide that she does not wish to have a feeding tube at all. 02/16/17--This patient passed her swallowing study this morning and has been approved to have nectar thickened liquids. I am going to hold off on arranging for the upper endoscopy/PEG tube is neither she nor her family is mentally prepared to accept this alternative. She may certainly improve as far as her capacity for solids in the future as time passes from the initial inciting event. I will certainly be happy to put this PEG tube in in the future should circumstances warrant this and the family agrees. Given her improvement already , I will sign off at this time. 02/24/17--Patient's family has agreed to PEG tube placement. The nurse in charge of the patient did not give the patient her Xarelto this morning and therefore we can wait 3 days before placement of PEG tube for safety sake. Because of his lapse we will be able to place the PEG tube on Wednesday, instead of waiting until Wednesday. 02/25/17--the patient's second day off of Xarelto, PEG tube replaced tomorrow morning. 02/26/17--PEG tube successfully placed, no gross evidence of stricturing, erosive gastritis noted in the stomach and erosive duodenitis. 03/01/17--My thanks to Dr. Wright who observe this patient over the weekend. PEG tube is been placed successfully, though the patient is having some fairly high residuals at 80 mL per shift. I note that she is on 60 mL/h of the tube feeds-- this is likely too much volume for her, would suggest a more concentrated tube feeding formula. Because of elevation in white blood cell count is unclear. Infectious disease has been consulted. Current Visit: Yes (2) Anemia Status: Acute Assessment and plan: Patient has mild anemia. She is not to my knowledge undergone either EGD or colonoscopy. We will perform EGD as a result of PEG tube placement ultimately, should she decide to undergo evaluation. I will be able to tell whether or not there appears to be a bleeding source in the upper GI tract at the time of this endoscopy. If the patient were having bright red blood per rectum we could also consider colonoscopy down the road, as clinically appropriate. For the present time will continue observation with occasional CBCs to follow the patient's hematocrit. Thus far this is drifted down to the 35.5% range from baseline of 42.5 back on 01/24/17. 02/16/17--The patient's hematocrit is stable at 35.6%. We will hold off on any further evaluation for the present time. We can consider upper and lower endoscopy should the patient developed severe anemia when taking Xarelto down the road. Would suggest periodic monitoring of the patient's hematocrit given this low level of anemia present. 02/24/17--the patient's hematocrit is back up to 39%, it does not appear to be negatively impacted by the previous Xarelto use. 02/25/17--patient's hematocrit was checked yesterday at 39%. 02/26/17--Continue to observe patient's hematocrit, hold Xarelto for 1 more day. 03/01/17--the patient's hematocrit is remaining in its usual range between 34 and 39% this admission. This should continue to be monitored on a routine basis once the patient is discharged. No active bleeding was discovered during the endoscopy. She does remain on Xarelto. Please do not hesitate to page me or reconsult as needed for this very pleasant patient, I will sign off at this time. Current Visit: Yes (3) Gastritis and duodenitis Status: Acute Assessment and plan: Seen on endoscopy 02/26/17 biopsies taken for Helicobacter pylori. 03/01/17--The patient's biopsies from her stomach came back showing Helicobacter pylori infection--we should consider treatment with clarithromycin and amoxicillin in addition to the Protonix once patient's current infection has abated. This can be done anytime in the future. She is getting antibiotics for other reasons at the present time. The treatment of her decades long infection in her stomach can certainly wait until the current infection is dealt with. I can follow this up as an outpatient as well. Current Visit: Yes Gastroenterology - PN: Subj Interval history: This patient was seen by my partner Dr. Wright over the weekend and she appears to be doing well although her residuals are slightly high--currently running about 80 mL during her last shift check. I do not the patient's feeding rate is also fairly high at 60 mL/h. Exam (Progress Note) - Constitutional Vitals: Period Temp Pulse Resp BP Sys/Delgado Pulse Ox Last 24 Hr 97.7 F-99.7 F 52-91 18-22 102-134/55-81 92-100 General appearance: no acute distress - Respiratory Respiratory exam: Present: clear to auscultation bilaterally. Absent: rhonchi, stridor, wheezes - Cardiovascular Cardiovascular exam: Present: regular rate and rhythm - GI/Abdominal GI/Abdominal exam: Present: normal bowel sounds, soft, other (PEG tube is noted laterally in the left upper quadrant it does spin well, no drainage or erythema) . Absent: distended, guarding, tenderness, rebound - Extremities Exam Extremities exam: Absent: edema - Neurological Exam Neurological exam: Present: altered (Patient is somnolent, she does not follow my commands) - Psychiatric Psychiatric exam: Present: flat affect - Skin Skin exam: Present: warm Results - Labs CBC & BMP: 03/01/17 03:54 03/01/17 03:54 Specialty Discharge - Follow Up or Referrals
[2017-03-01 16:38] LABS: Apearance,Urine CLOUDY (Clear); Bacteria,Urine Occasional /HPF (Few); Bilirubin,Urine Negative (Negative); Blood, Urine Negative (Negative); Glucose,Urine (UA) Negative (Negative); Ketones,Urine Negative (Negative); Nitrite,Urine Negative (Negative); Protein,Urine Negative; RBC,Urine 7 /HPF (0-4); Squamous Epithelial Cell,Urine Many /HPF (0-10); Urine Urobilinogen < 2.0 EU/DL (0.2-1.0); WBC,Urine 9 /HPF (0-6)
[2017-03-01 16:39] LABS: Urine Color Yellow (Yellow)
--- NOTE | 2017-03-01 17:16 | Hospitalist Progress Note ---
Assessment and Plan (1) Acute CVA (cerebrovascular accident) Status: Acute Assessment and plan: due to atrial fib, xarelto Current Visit: Yes (2) Atrial fibrillation Status: Chronic Assessment and plan: cont rate control with metoprolol and xarelto for anticoagulation Current Visit: Yes Qualifiers: Atrial fibrillation type: unspecified Qualified Code(s): I48.91 - Unspecified atrial fibrillation (3) Uncontrolled hypertension Status: Chronic Assessment and plan: Controlled with metoprolol and hydralazine. Current Visit: Yes (4) Dysphagia due to recent cerebral infarction Status: Acute Assessment and plan: Patient has a PEG tube. Site looks good Current Visit: Yes (5) Anemia Status: Acute Assessment and plan: Anemia stable Current Visit: Yes (6) Diabetes Status: Chronic Assessment and plan: Creatinine 1.5 would discontinue metformin. Hemoglobin A1c 6.7. Current Visit: Yes (7) Elevated troponin Status: Acute Assessment and plan: Cardiology recommends medical therapy only. I agree. Current Visit: Yes (8) Leukocytosis Status: Acute Assessment and plan: UA positive for infection. Blood cultures 2 pending, continue to monitor CBC, will start Rocephin for the UTI but avoid overtreatment. Current Visit: Yes Hospitalist: Subjective Interval history: Patient has left-sided paralysis due to a stroke. Her white count is up to 30 today. I have asked Dr. Mathis to see her today. Patient has a PEG tube. She has been accepted [facility] when stable for transfer. Exam - Constitutional Vitals: Period Temp Pulse Resp BP Sys/Delgado Pulse Ox Last 24 Hr 97.7 F-99.7 F 52-91 18-22 102-134/55-81 92-98 Exam: Heart Rate-[IRR] Lungs-[CTAB] GI-[+bs soft, NT] Ext-[1+ edema] Neuro [Motor left sided paralysis, aphasic, eye open psych [depresed mood and flat affect] General [no acute distress] - Expanded Left Upper Extremity Neurosensory exam: Absent: 2-point discrimination (Left upper extremity flaccid ; 0/0 strength) Results - Labs CBC & BMP: 03/01/17 03:54 03/01/17 03:54 Lab Results: I have reviewed the past 24 hour labs Labs: urine cx no growth. - Diagnostic Findings Procedure: Chest x-ray: report reviewed by me (nothing acute ) Quality Measures - Stroke Onset of Symptoms Date: 02/14/17 Onset of Symptoms Time: 11:00 Presenting Symptoms: Left hemiparesis Specialty Discharge - Follow Up or Referrals
[2017-03-01] MEDS: ATORVASTATIN 40 MG TABLET PO SCH (20:55)
[2017-03-02 03:54] LABS: Basophils # 0.1 10*3/uL (0.0-0.2); Basophils % 0.4 % (0.0-0.8); Eosinophils # 0.8 10*3/uL (0.0-0.87); Eosinophils % 3.2 % (0.00-10.9); Hematocrit 32.8 VOL% (35.7-47.0); Hemoglobin 10.9 GM/DL (12.0-16.0); Immature Granulocytes % 1.3 %; Immature Granulocytes Absolute 0.33 #; Lymphocytes % 12.3 % (21.3-54.2); Mean Corpuscular HGB Conc 33.2 GM/DL (32-36); Mean Corpuscular Hemoglobin 23 PG (27-34); Mean Corpuscular Volume 69.9 FL (87-102); Mean Platelet Volume 11.9 FL (9.6-12.0); Monocytes # 1.4 10*3/uL (0.11-0.8); Monocytes % 5.8 % (1.7-12.7); Platelet Count 290 T/CUMM (130-400); Red Blood Count 4.69 MC/CUMM (3.8-5.5); Red Cell Distribution Width 15.7 % (9.3-17.3); White Blood Count 24.7 T/CUMM (4-12)
[2017-03-02 05:40] LABS: Eosinophils 3 % (0-10); Hypochromasia 1+; Lymphocytes 13 % (20-55); Nucleated Red Blood Cells 1 (0-5); Segmented Neutrophils 79 % (50-85); Total Cells Counted 100
[2017-03-02 05:41] LABS: Microcytosis 1+; Platelet Estimate Normal; Target Cells Slight
[2017-03-02] MEDS: INSULIN LISPRO 100 UNIT/ML SUBCUT SCH ×4 (07:24→20:45)
[2017-03-02] MEDS: METOPROLOL TARTRATE 100 MG TABLET PO SCH ×3 (08:35→20:47)
[2017-03-02] MEDS: amLODIPine 10 MG TABLET PO SCH ×2 (08:36→08:39)
[2017-03-02] MEDS: DOCUSATE SODIUM 100 MG/10 ML UDCUP PO SCH ×2 (08:37→20:48)
[2017-03-02] MEDS: ALLOPURINOL 300 MG TABLET PO SCH (08:37)
[2017-03-02] MEDS: MAGNESIUM CHLORIDE 64 MG TABLET PO SCH ×2 (08:37→20:46)
[2017-03-02] MEDS: ZINC OXIDE PASTE 113 GM TUBE TOP SCH ×2 (08:40→20:48)
--- NOTE | 2017-03-02 10:01 | Discharge Summary ---
<Marita Foreman - Last Filed: 03/02/17 11:16> Hospital Course - Hospital Course Hospital Course: Ms Montes 89 y/o w/PMHx HTN, gouty arthritis, TEE inhibitor aggravated angioedema presented to the ED 02/14/17 transfer from [facility] for further evaluation of weakness. hypertensive with BP reported at 206/101. Labs obtained significant for WBC 10.91, hemoglobin 11.4, hematocrit 35.0, potassium 3.2, BUN 24, creatinine 1.07, and glucose 118. CT of the head was repeated which was significant for scattered hypoattenuation throughout the deep white matter in sultana likely representing microangiopathic small vessel ischemic changes. Chest x-ray was significant for reticulonodular interstitial opacities within the lung bases which could be chronic in nature. Early acute inflammatory process not excluded. Hospital medicine consulted, admit to critical care unit. Patient did not receive tpa d/t outside time frame, consult neurology, Echo, doppler carotids, MRI, repeat labs. Carotid shows occlusion of Right ICA, EKG shows new onset afib. Echo EF 65%. -Neurology consult/plan/recommendations: continue Xarelto 15 mg, PT, OT. Repeat CT revealed large right MCA acute infarct and shelter placement recommended for continue of care. -Cardiology consult/plan/recommends: Afib- new onset - Continue metoprolol and Xarelto. HTN continue norvasc, hydralazine. -GI consult/plan/recommends: swallowing difficulty, PEG tube placement successful and patient tolerating feedings. -Infectious Disease was consulted for elevation of WBC, patient remains off antibiotic therapy and showing improvement and feel that the elevation is related to stress. Urine culture final shows no growth. Today 03/02/17 patient is stable. Repeat Blood cultures pending final results. Repeat urine cultures pending final results- Preliminary yeast. She will be [facility] for [facility] of care. Her Primary Care Physician will need to follow up with her care. Further recommendations for discharge planning to follow per Dr Melgar. Patient seen and examined. Hospital course reviewed and agree with above. Specialty Discharge - Follow Up or Referrals Discharge Plan - Discharge Data Disposition: Disch/Xfer-Ip Rehab Fac - Discharge Medications New amLODIPine [Norvasc] 10 mg PO DAILY tablet Atorvastatin [Lipitor] 40 mg PO BEDTIME tablet Docusate Sodium Liquid [Colace Liquid] 100 mg PO BID Glucagon 1 mg IM PRN PRN vial PRN Reason: Hypoglycemia w/o IV access hydrALAZINE TAB [Apresoline Tab] 100 mg PO BID tablet Insulin Lispro [HumaLOG] See Protocol SUBCUT ACHS unit Rivaroxaban [Xarelto] 15 mg PO DAILY W/BREAKFAST tablet Zinc Oxide Paste [Desitin Paste] 1 applic TOP BID applic Dextrose 50% [D50] 25 gm IV PRN PRN vial PRN Reason: Hypoglycemia with IV access Metoprolol Tartrate Tab [Lopressor Tab] 100 mg PO BID tablet Continue Allopurinol 300 mg PO QAM Discontinued Aspirin [Ecotrin] 81 mg PO QAM HYDROcodone/ACETAMIN 5-325 [Divide 5-325] 1 tablet PO Q6H PRN #10 tablet PRN Reason: Pain amLODIPine [Norvasc] 2.5 mg PO DAILY Metoprolol Succinate 50 mg PO QAM hydroCHLOROthiazide [Hydrochlorothiazide] 12.5 mg PO QAM Cyproheptadine Tab [Periactin Tab] 4 mg PO BEDTIME - Follow Up or Referral - Forms/Instructions Instructions: Rivaroxaban (By mouth), Ischemic Stroke (DC) Exam - Constitutional Vitals: Period Temp Pulse Resp BP Sys/Delgado Pulse Ox Last 24 Hr 97.7 F-99.3 F 57-79 17-19 125-153/52-62 91-100 Discharge Results Procedures and tests throughout hospitalization: Pending Orders 03/01/17 Urine Culture Routine 03/01/17 12:38 Blood Culture Stat 03/03/17 04:00 BMP [Basic Metabolic Panel] IN AM Labs on day of discharge: Labs from last 24 hours 03/02/17 03/02/17 03/02/17 10:48 06:40 02:54 WBC 24.7 H RBC 4.69 Hgb 10.9 L Hct 32.8 L MCV 69.9 L MCH 23 L MCHC 33.2 RDW 15.7 Plt Count 290 MPV 11.9 Neut % (Auto) 77.0 H Lymph % (Auto) 12.3 L [place] % (Auto) 5.8 Eos % (Auto) 3.2 Baso % (Auto) 0.4 Neut # (Auto) 19.0 H Lymph # (Auto) 3.0 [place] # (Auto) 1.4 H Eos # (Auto) 0.8 Baso # (Auto) 0.1 Total Counted 100 Immature Gran % 1.3 Nucleated RBC % 0.0 Immature Gran # 0.33 Segmented Neutrophils 79 Lymphocytes 13 L Monocytes 5 Eosinophils 3 Nucleated RBCs 1 Nucleated RBCs # 0.00 Platelet Estimate Normal Immature Plt Fraction 0.0 Hypochromasia 1+ Microcytosis 1+ Target Cells Slight Morphology Comment POC Glucose 112 H 125 H Urine Color Urine Appearance Urine pH Ur Specific [place] Urine Protein Urine Glucose (UA) Urine Ketones Urine Blood Urine Nitrate Urine Bilirubin Urine Urobilinogen Urine Leukocytes Urine RBC Urine WBC Ur Squamous Epith Cells Urine Bacteria Ur Culture Indicated? 03/01/17 03/01/17 03/01/17 20:11 16:10 15:19 WBC RBC Hgb Hct MCV MCH MCHC RDW Plt Count MPV Neut % (Auto) Lymph % (Auto) [place] % (Auto) Eos % (Auto) Baso % (Auto) Neut # (Auto) Lymph # (Auto) [place] # (Auto) Eos # (Auto) Baso # (Auto) Total Counted Immature Gran % Nucleated RBC % Immature Gran # Segmented Neutrophils Lymphocytes Monocytes Eosinophils Nucleated RBCs Nucleated RBCs # Platelet Estimate Immature Plt Fraction Hypochromasia Microcytosis Target Cells Morphology Comment POC Glucose 122 H 118 H Urine Color Yellow Urine Appearance Cloudy Urine pH 5.0 Ur Specific [place] 1.020 Urine Protein Negative Urine Glucose (UA) Negative Urine Ketones Negative Urine Blood Negative Urine Nitrate Negative Urine Bilirubin Negative Urine Urobilinogen < 2.0 H Urine Leukocytes Moderate H Urine RBC 7 Urine WBC 9 Ur Squamous Epith Cells Many Urine Bacteria Occasional Ur Culture Indicated? Results to follow Preliminary micro results at discharge 03/01/17 Unknown Urine Culture - Preliminary Urine,Catheterized Yeast DS: Provider Date of admission: 02/14/17 13:53 Primary care physician: Sami Luna Attending physician on admission: Santiago Bee MD Consults: 02/14/17 14:19 Consult to Case Mgmt/Social Srvs [CONS] Routine Reason for Case Mgmt/Social Srvs: Discharge Planning Consult to Occupational Therapy [CONS] Routine Reason for Occupational Therapy: Evaluate and Treat Consult Comment: Stroke Consult to Physical Therapy [CONS] Routine Reason for Physical Therapy: Evaluate and Treat Consult Comment: stroke 02/14/17 14:21 Consult to Physician [CONS] Routine Comment: Consulting Provider: Miguelito Mathias When should Consulting Provider be notified: Now Consult to Specialist Group: Neurology 02/14/17 17:01 Consult to Pastoral Services [CONS] Routine Comment: Pastoral Screen: Declines Visit Pastoral Screen Source of Request: Patient Family Consult to Pastoral Services [CONS] Routine Comment: Pastoral Screen: Declines Visit Pastoral Screen Source of Request: Patient Family 02/26/17 09:05 Consult to Dietitian [CONS] Routine Reason for Dietitian: TF-Initiate/Manage Consult Comment: Tube feeding recommendations 03/01/17 01:08 Consult to Physician [CONS] Routine Comment: elevated troponins Consulting Provider: Ana Gallagher Consulting Provider Notified: Yes When should Consulting Provider be notified: Now Person Notified: Shawn garcia Date Notified: 03/01/17 Time Notified: 07:47 03/01/17 11:04 Consult to Physician [CONS] Routine Comment: elevated WBCs and fever Consulting Provider: Karina Hernandez Consulting Provider Notified: Yes When should Consulting Provider be notified: Now Person Notified: Dr. Mathis Date Notified: 03/01/17 Time Notified: 11:05 Discharging clinician: Marita Foreman NP <Hilda Melgar Last Filed: 03/02/17 12:30> Hospital Course - Time spent with patient Time with patient DS: Greater than 30 minutes (50 min) Diagnosis - Discharge Diagnosis (1) Acute CVA (cerebrovascular accident) Status: Acute (2) Atrial fibrillation Status: Chronic (3) Uncontrolled hypertension Status: Chronic (4) Dysphagia due to recent cerebral infarction Status: Acute (5) Anemia Status: Acute (6) Diabetes Status: Chronic (7) Elevated troponin Status: Acute (8) Leukocytosis Status: Acute Discharge Plan - Discharge Data Condition at Discharge: Stable Discharge Diet: other (see tube feeding orders ) Activity: resume usual activities as tolerated, as per physical therapy Hygiene: no restrictions - Forms/Instructions Additional Discharge Instructions: strict npo, tube feeding, glucerna 50 ml/hr with 50 ml of water every 4 hours. Straight cath tid Exam - Constitutional Exam: Heart Rate-[RRR] Lungs-[CTAB] GI-[+bs soft, NT] Ext-[no edema] Neuro left sided paralysis psych unable to assess General [no acute distress]
--- NOTE | 2017-03-02 10:05 | Infectious Disease Progress ---
Assessment and Plan (1) Leukocytosis Status: Acute Assessment and plan: Leukocytosis improved today off antibiotics. Suspect stress response. No focus of infection identified. Her urine analysis was unimpressive. Blood cultures pending. Recommendations: Continue off antibiotics and follow-up cultures. Discussed with patient's daughter at bedside Current Visit: Yes (2) Acute CVA (cerebrovascular accident) Status: Acute Current Visit: Yes (3) Atrial fibrillation Status: Chronic Current Visit: Yes Qualifiers: Qualified Code(s): I48.91 - Unspecified atrial fibrillation (4) Diabetes Status: Chronic Current Visit: Yes (5) Hypertension Status: Chronic Current Visit: Yes Infectious Disease - PN: Subj Interval history: No acute disease with patient over night. Her daughter voiced no concerns. She remains afebrile. Infectious Disease Exam (PN) - Constitutional Vitals: Temp Pulse Resp BP Pulse Ox 99.1 F 70 18 148/56 100 03/02/17 07:18 03/02/17 07:18 03/02/17 08:00 03/02/17 07:18 03/02/17 07:18 General appearance: no acute distress Exam: General appearance: no acute distress, sitting at side of bed doing physical therapy, range of motion as she does not follow commands - Eye Eye exam: Present: EOMI. no icterus Pupils: Present: ASCENCION - Respiratory Respiratory exam: vesicular BS, no crepitations or wheezes - Cardiovascular Cardiovascular exam: regular rate and rhythm, no murmurs - GI/Abdominal GI/Abdominal exam: normal bowel sounds, soft, non-tender, no organomegaly or mass - Extremities Exam Extremities exam: no edema - Skin Skin exam: no rash Results - Labs CBC & BMP: 03/02/17 02:54 03/01/17 03:54 Lab Results: I have reviewed the past 24 hour labs Quality Measures - Stroke Onset of Symptoms Date: 02/14/17 Onset of Symptoms Time: 11:00 Presenting Symptoms: Left hemiparesis Specialty Discharge - Follow Up or Referrals
--- NOTE | 2017-03-02 20:45 | Cardiology Progress Note ---
I, Tri Taylor RN, am scribing for, and in the presence of, Acosta Mendez MD 20:43. Assessment and Plan (1) Elevated troponin Status: Acute Assessment and plan: Initial assessment and plan March 01, 2017: The patient does have an elevated troponin, but she is not having chest pain or shortness of breath. In fact, she is not interactive. She does have known coronary disease, so this could be an ischemic event. There were no EKG changes of ST elevation I discussed the situation with her daughter. I recommend a non-invasive, medical therapy approach. Given she is DNR, has had a large stroke, not interactive, and her age, it is thought that a conservative, non-cath approach would be best. She agrees. She has been off Xarelto for several days and not on aspirin. If you believe she is okay with taking aspirin 81 mg daily, you could restart it. If you believe is too risky, related to the stroke yes Dr. mendez, you can leave it off. Otherwise, believe she is on a beta-zena. Her prognosis is guarded From my standpoint, she may go back to the group home. Assessment and plan March 02, 2017: No chest pain or shortness breath, but not very interactive Is having difficulty voiding at this time May need a indwelling Mckeon Agree with her being DNR Okay with me to for her to be transferred back to the group home when ready. Current Visit: Yes (2) Hypertension Status: Chronic Current Visit: Yes (3) Acute CVA (cerebrovascular accident) Status: Acute Current Visit: Yes (4) Atrial fibrillation Status: Chronic Current Visit: Yes Qualifiers: Atrial fibrillation type: unspecified Qualified Code(s): I48.91 - Unspecified atrial fibrillation (5) Dysphagia due to recent cerebral infarction Status: Acute Current Visit: Yes (6) Diabetes Status: Chronic Current Visit: Yes Cardiology - PN: Subj Interval history: Primary dog and cat food cook: Dr. Feliz Cade. Summary: Ms. Murray is a 89 year old female who is been followed by Dr. Feliz Cade previously having had coronary artery disease as well as dyslipidemia and hypertension. She has a history of palpitations based on his records. His prior ECGs revealed sinus rhythm with first-degree AV block and delayed anterior R-wave progression. She was last seen by him in November of this year. Prior evaluation with echocardiogram May 2015 revealed ejection fraction 65+ % with aortic valve sclerosing and otherwise unremarkable any cardiac perfusion study at the same time with normal cardiac perfusion and ejection fraction greater than 70%. No wall motion normality's were noted. Patient was admitted because of deterioration after having what appeared to be a stroke. Neurology's note the patient had right MCA stroke. 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 She has had atrial fibrillation with variable ventricular response. She was initially started on Xarelto, this has been on hold since February 24. He underwent PEG tube placement on February 26. March 01, 2017: Cardiology was reconsulted because of elevated troponin yesterday, it was 1.970 and 2.500. EKG was without any acute changes. Given her condition, it would be best to treat her medically. This was discussed with her daughter who is at bedside. Would consider adding aspirin if okay with neurology and hospitalist services. Troponin this morning is down to 2.20 with negative CK and CK-MB. March 02, 2017: Ms. Murray is seen resting in bed with daughter at bedside. She is more alert this morning. She is to be transferred to swing bed at [place] today. Exam (Progress Note) - Constitutional Vitals: Period Temp Pulse Resp BP Sys/Delgado Pulse Ox Last 24 Hr 97.7 F-99.3 F 57-79 17-19 125-153/52-62 91-100 Exam: General: Appears comfortable. No apparent distress. Lethargic. HEENT: PERRL, normocephalic, atraumatic. Mucous membranes moist. No jaundice noted. Conjunctiva moist and clear, sclerae anicteric Neck: No JVD/HJR, no thyromegaly or lymphadenopathy noted. Cardiac: Irregular with controlled rate. No murmur rub or gallop. Lungs: Clear to auscultation without accessory muscle use to assist the respiratory pattern. Requiring oxygen via nasal cannula. Abdomen: Soft, bowel sounds normoactive. Nontender and nondistended. No abdominal bruit or thrill noted. No masses noted. PEG tube noted. Extremities: No clubbing, cyanosis noted. No edema. Upper extremity pulses 2+ . Lower extremity pulses 1+. Capillary refill less than 3 seconds. Skin: No unusual lesions or rashes. No skin breakdown appreciated. Neuro: Awake, more alert today. Result/EKG - Labs CBC & BMP: 03/02/17 02:54 03/01/17 03:54 Lab Results: I have reviewed the past 24 hour labs Labs: Laboratory Results - last 24 hr 03/01/17 03/01/17 03/01/17 10:45 15:19 16:10 WBC RBC Hgb Hct MCV MCH MCHC RDW Plt Count MPV Neut % (Auto) Lymph % (Auto) [place] % (Auto) Eos % (Auto) Baso % (Auto) Neut # (Auto) Lymph # (Auto) [place] # (Auto) Eos # (Auto) Baso # (Auto) Total Counted Immature Gran % Nucleated RBC % Immature Gran # Segmented Neutrophils Lymphocytes Monocytes Eosinophils Nucleated RBCs Nucleated RBCs # Platelet Estimate Immature Plt Fraction Hypochromasia Microcytosis Target Cells Morphology Comment POC Glucose 120 H 118 H Urine Color Yellow Urine Appearance Cloudy Urine pH 5.0 Ur Specific Adams 1.020 Urine Protein Negative Urine Glucose (UA) Negative Urine Ketones Negative Urine Blood Negative Urine Nitrate Negative Urine Bilirubin Negative Urine Urobilinogen < 2.0 H Urine Leukocytes Moderate H Urine RBC 7 Urine WBC 9 Ur Squamous Epith Cells Many Urine Bacteria Occasional Ur Culture Indicated? Results to follow 03/01/17 03/02/17 03/02/17 20:11 02:54 06:40 WBC 24.7 H RBC 4.69 Hgb 10.9 L Hct 32.8 L MCV 69.9 L MCH 23 L MCHC 33.2 RDW 15.7 Plt Count 290 MPV 11.9 Neut % (Auto) 77.0 H Lymph % (Auto) 12.3 L [place] % (Auto) 5.8 Eos % (Auto) 3.2 Baso % (Auto) 0.4 Neut # (Auto) 19.0 H Lymph # (Auto) 3.0 [place] # (Auto) 1.4 H Eos # (Auto) 0.8 Baso # (Auto) 0.1 Total Counted 100 Immature Gran % 1.3 Nucleated RBC % 0.0 Immature Gran # 0.33 Segmented Neutrophils 79 Lymphocytes 13 L Monocytes 5 Eosinophils 3 Nucleated RBCs 1 Nucleated RBCs # 0.00 Platelet Estimate Normal Immature Plt Fraction 0.0 Hypochromasia 1+ Microcytosis 1+ Target Cells Slight Morphology Comment POC Glucose 122 H 125 H Urine Color Urine Appearance Urine pH Ur Specific Adams Urine Protein Urine Glucose (UA) Urine Ketones Urine Blood Urine Nitrate Urine Bilirubin Urine Urobilinogen Urine Leukocytes Urine RBC Urine WBC Ur Squamous Epith Cells Urine Bacteria Ur Culture Indicated? 03/02/17 10:48 WBC RBC Hgb Hct MCV MCH MCHC RDW Plt Count MPV Neut % (Auto) Lymph % (Auto) [place] % (Auto) Eos % (Auto) Baso % (Auto) Neut # (Auto) Lymph # (Auto) [place] # (Auto) Eos # (Auto) Baso # (Auto) Total Counted Immature Gran % Nucleated RBC % Immature Gran # Segmented Neutrophils Lymphocytes Monocytes Eosinophils Nucleated RBCs Nucleated RBCs # Platelet Estimate Immature Plt Fraction Hypochromasia Microcytosis Target Cells Morphology Comment POC Glucose 112 H Urine Color Urine Appearance Urine pH Ur Specific Adams Urine Protein Urine Glucose (UA) Urine Ketones Urine Blood Urine Nitrate Urine Bilirubin Urine Urobilinogen Urine Leukocytes Urine RBC Urine WBC Ur Squamous Epith Cells Urine Bacteria Ur Culture Indicated? Quality Measures - Stroke Onset of Symptoms Date: 02/14/17 Onset of Symptoms Time: 11:00 Presenting Symptoms: Left hemiparesis Specialty Discharge - Follow Up or Referrals Vanessa Brown Dale, MD, personally performed the services described in this documentation, ascribed by Tri Taylor RN in my presence, and it is both accurate and complete .
[2017-03-02] MEDS: ATORVASTATIN 40 MG TABLET PO SCH (20:47)
[2017-03-03 05:06] LABS: Basophils # 0.1 10*3/uL (0.0-0.2); Basophils % 0.3 % (0.0-0.8); Eosinophils # 1.1 10*3/uL (0.0-0.87); Eosinophils % 5.5 % (0.00-10.9); Hematocrit 31.6 VOL% (35.7-47.0); Hemoglobin 10.6 GM/DL (12.0-16.0); Immature Granulocytes % 1.2 %; Immature Granulocytes Absolute 0.25 #; Lymphocytes # 3.1 10*3/uL (1.4-4.0); Lymphocytes % 14.8 % (21.3-54.2); Mean Corpuscular HGB Conc 33.5 GM/DL (32-36); Mean Corpuscular Hemoglobin 24 PG (27-34); Mean Corpuscular Volume 70.1 FL (87-102); Mean Platelet Volume 11.9 FL (9.6-12.0); Monocytes # 1.6 10*3/uL (0.11-0.8); Monocytes % 7.7 % (1.7-12.7); Neutrophils # 14.6 10*3/uL (1.4-7.4); Neutrophils % 70.5 % (38.7-73.9); Platelet Count 288 T/CUMM (130-400); Red Blood Count 4.51 MC/CUMM (3.8-5.5); Red Cell Distribution Width 15.8 % (9.3-17.3); White Blood Count 20.7 T/CUMM (4-12)
[2017-03-03 05:39] LABS: Band Neutrophils 1 % (0-10); Eosinophils 7 % (0-10); Hypochromasia 1+; Lymphocytes 15 % (20-55); Segmented Neutrophils 73 % (50-85); Total Cells Counted 100
[2017-03-03 05:40] LABS: Microcytosis 1+; Ovalocytes Slight; Target Cells Slight
[2017-03-03] MEDS: INSULIN LISPRO 100 UNIT/ML SUBCUT SCH ×3 (08:27→15:23)
[2017-03-03] MEDS: RIVAROXABAN 20 MG TABLET PO SCH (09:36)
[2017-03-03] MEDS: DOCUSATE SODIUM 100 MG/10 ML UDCUP PO SCH (09:37)
[2017-03-03] MEDS: amLODIPine 10 MG TABLET PO SCH (09:38)
[2017-03-03] MEDS: METOPROLOL TARTRATE 100 MG TABLET PO SCH (09:38)
[2017-03-03] MEDS: ALLOPURINOL 300 MG TABLET PO SCH (09:39)
[2017-03-03] MEDS: MAGNESIUM CHLORIDE 64 MG TABLET PO SCH (09:39)
--- NOTE | 2017-03-03 10:50 | Event Note ---
Patient continues to do well, overall better per her daughter. No fever. She is talking more. Lab investigations noted with further improvement in white blood cell count to 20. Yeast in urine. Treatment of funguria is not indicated. Continue to observe off antimicrobial therapy.
[2017-03-03] MEDS: ZINC OXIDE PASTE 113 GM TUBE TOP SCH (15:00)
[2017-03-03 16:17] VITALS: BP 143/72
--- NOTE | 2017-03-04 08:35 | Cardiology Progress Note ---
Assessment and Plan (1) Elevated troponin Status: Acute Assessment and plan: Initial assessment and plan March 01, 2017: The patient does have an elevated troponin, but she is not having chest pain or shortness of breath. In fact, she is not interactive. She does have known coronary disease, so this could be an ischemic event. There were no EKG changes of ST elevation I discussed the situation with her daughter. I recommend a non-invasive, medical therapy approach. Given she is DNR, has had a large stroke, not interactive, and her age, it is thought that a conservative, non-cath approach would be best. She agrees. She has been off Xarelto for several days and not on aspirin. If you believe she is okay with taking aspirin 81 mg daily, you could restart it. If you believe is too risky, related to the stroke yes Dr. albrecht, you can leave it off. Otherwise, believe she is on a beta-zena. Her prognosis is guarded From my standpoint, she may go back to the [facility]. Assessment and plan March 02, 2017: No chest pain or shortness breath, but not very interactive Is having difficulty voiding at this time May need a indwelling Mckeon Agree with her being DNR Okay with me to for her to be transferred back to the [facility] when ready. 03/03/17: Not very interactive No chest pain or shortness of breath I discussed with the family member about her going to a fpc She agrees with the plan Conservative approach Patient is DNR (2) Hypertension Status: Chronic (3) Acute CVA (cerebrovascular accident) Status: Acute (4) Atrial fibrillation Status: Chronic Qualifiers: Atrial fibrillation type: unspecified Qualified Code(s): I48.91 - Unspecified atrial fibrillation (5) Dysphagia due to recent cerebral infarction Status: Acute (6) Diabetes Status: Chronic Cardiology - PN: Subj Interval history: No complaints of chest pain or shortness of breath. Not very interactive. Exam (Progress Note) - Constitutional Vitals: Period Temp Pulse Resp BP Sys/Delgado Pulse Ox Last 24 Hr 98.5 F-98.6 F 50-54 16-18 123-143/50-72 93-95 Exam: General: Appears comfortable. No apparent distress. Lethargic. HEENT: PERRL, normocephalic, atraumatic. Mucous membranes moist. No jaundice noted. Conjunctiva moist and clear, sclerae anicteric Neck: No JVD/HJR, no thyromegaly or lymphadenopathy noted. Cardiac: Irregular with controlled rate. No murmur rub or gallop. Lungs: Clear to auscultation without accessory muscle use to assist the respiratory pattern. Requiring oxygen via nasal cannula. Abdomen: Soft, bowel sounds normoactive. Nontender and nondistended. No abdominal bruit or thrill noted. No masses noted. PEG tube noted. Extremities: No clubbing, cyanosis noted. No edema. Upper extremity pulses 2+ . Lower extremity pulses 1+. Capillary refill less than 3 seconds. Skin: No unusual lesions or rashes. No skin breakdown appreciated. Neuro: Awake, more alert today. Result/EKG - Labs CBC & BMP: 03/03/17 03:52 03/01/17 03:54 Lab Results: I have reviewed the past 24 hour labs Labs: Laboratory Results - last 24 hr 03/03/17 03/03/17 11:01 15:23 POC Glucose 134 H 136 H Quality Measures - Stroke Onset of Symptoms Date: 02/14/17 Onset of Symptoms Time: 11:00 Presenting Symptoms: Left hemiparesis Specialty Discharge - Follow Up or Referrals
== END 2017-03-03 17:10 | DRG 64 ==
LOC: EDBD → EDUNIT# → N.ED 12:39 → SUATTDRO 13:53 → N.EDINP 13:53 → N.CC 15:40 → N.3E 02-19 15:22
PROVIDERS: ADMIT Internal Medicine; ATTEND Internal Medicine
PROC: EGDWPEG (ICD-10-PCS; 2017-02-26 08:50)